=== PATIENT | female | born 1955 | race Caucasian/White ===

== ENCOUNTER 2021-05-12 02:21 | Day surgery (SDC) | payer MEDICARE, SELFPAY ==
[2021-05-05 11:15] VITALS: BMI 36.6
[2021-05-12 06:49] VITALS: BP 141/73; PULSE 80; RESP 18; TEMP 36.6; O2SAT 96; BMI 36.5
[2021-05-12] MEDS: LACTATED RINGERS 1,000 ML 150 ML IV CONT (07:00)
--- NOTE | 2021-05-12 07:00 | WPDANESEPPF ---
Anes - Initial Pre Proc Eval Procedure: Operation Date: 05/12/21 08:00 Proposed Procedures p Screening Colonoscopy - Jose Roberto Zepeda MD Date/Time: 05/12/21 07:00 Surgeon: Jose Roberto Zepeda MD Pre Op Diagnosis: neoplasm screening Patient Data Age: 65 Gender: F Height: 1.57 m Weight: 90.5 kg Last Vital Signs Temp 36.6 C 05/12/21 06:49 Pulse 80 05/12/21 06:49 Resp 18 05/12/21 06:49 BP 141/73 H 05/12/21 06:49 Pulse Ox 96 05/12/21 06:49 Allergies Allergy/AdvReac Type Severity Reaction Status Date / Time acetylcysteine Allergy Unknown Other Verified 05/12/21 06:48 ciprofloxacin Allergy Rash Verified 05/12/21 06:48 Home Medications Medication Instructions Recorded Confirmed Type aspirin [Adult Low Dose Aspirin] 81 mg PO DAILY 05/05/21 05/12/21 History atorvastatin 40 mg PO DAILY 05/05/21 05/12/21 History clopidogrel 75 mg PO DAILY 05/05/21 05/12/21 History furosemide 80 mg PO DAILY 05/05/21 05/12/21 History gabapentin 600 mg PO HS 05/05/21 05/12/21 History irbesartan 75 mg PO DAILY 05/05/21 05/12/21 History metoprolol tartrate 25 mg PO BID 05/05/21 05/12/21 History xe-fc-nosz-FA-Ca carb-vit K 1 tablet PO DAILY 05/05/21 05/12/21 History [Women's Multivitamin] Patient hx anesthesia problems: none Family hx anesthesia problems: none PMFSH Past Medical History Medical History (Updated 05/08/21 @ 12:20 by Tony Soto DO) CAD (coronary artery disease) Gout Hyperlipidemia Hypertension Surgical History Surgical History (Updated 05/08/21 @ 12:20 by Tony Soto DO) History of coronary artery stent placement x3 History of tubal ligation Hx of CABG 2005 Social History Social History Smoking packs per day: 1 Smoking cigarettes per day: 20.0 Years smoked: 54 Smoking pack-years: 54.00 Smoking status: Former smoker Tobacco type: cigarettes Living arrangements: with family Spiritual care concerns: No Anes - Eval Final PreProcedure Day of Procedure 05/12/21 07:00 Patient weight: obese Heart: regular rate and rhythm Lungs: clear to auscultation and normal air movement Airway: Mallampati scale class II Neurological: alert and oriented Last oral intake: >/= 8 hours ASA classification: III Emergent: no Anesthetic plan: proceed Anesthesia type and monitoring: general GIVS and standard monitoring Informed Consent: The patient's anesthetic plan and its attendant risks and benefits were discussed with the patient/family/POA. Questions were solicited and answers provided to the satisfaction of the patient/family/POA.
--- NOTE | 2021-05-12 07:54 | P.CONGI_ITS ---
Assessment and Plan Assessment and plan (1) Encounter for screening colonoscopy: Code(s): Z12.11 - Encounter for screening for malignant neoplasm of colon Status: Acute Assessment and Plan: Patient presents for screening colonoscopy. She appears to be at average risk for colon polyps. GI Consult Note Consult date/time: 05/12/21 07:54 HPI: Mercy Mirza is a 65 year old female Presents for screening colonoscopy. She reports her current weight appetite bowel movements are no rmal. She did have a bout of abdominal pain was treated empirically for colitis earlier in the year and has had resolution of her abdominal pain. She states her bowel movements are normal. She denies any blood in his stools. Family history is noncontributory. Review of Systems Review of Systems: All systems reviewed & are unremarkable except as noted in HPI and below PMFSH Past Medical History Medical History (Updated 05/12/21 @ 07:55 by Jose Roberto Zepeda MD) CAD (coronary artery disease) Gout Hyperlipidemia Hypertension Surgical History Surgical History (Updated 05/08/21 @ 12:20 by Tony Soto DO) History of coronary artery stent placement x3 History of tubal ligation Hx of CABG 2006 Social History Social History Smoking packs per day: 1 Smoking cigarettes per day: 20.0 Years smoked: 54 Smoking pack-years: 54.00 Smoking status: Former smoker Tobacco type: cigarettes Living arrangements: with family Spiritual care concerns: No Meds Home Medications and Allergies Home Medications Medication Instructions Recorded Confirmed Type aspirin [Adult Low Dose Aspirin] 81 mg PO DAILY 05/05/21 05/12/21 History atorvastatin 40 mg PO DAILY 05/05/21 05/12/21 History clopidogrel 75 mg PO DAILY 05/05/21 05/12/21 History furosemide 80 mg PO DAILY 05/05/21 05/12/21 History gabapentin 600 mg PO HS 05/05/21 05/12/21 History irbesartan 75 mg PO DAILY 05/05/21 05/12/21 History metoprolol tartrate 25 mg PO BID 05/05/21 05/12/21 History lu-oa-xmmt-FA-Ca carb-vit K 1 tablet PO DAILY 05/05/21 05/12/21 History [Women's Multivitamin] Allergies Allergy/AdvReac Type Severity Reaction Status Date / Time acetylcysteine Allergy Unknown Other Verified 05/12/21 06:48 ciprofloxacin Allergy Rash Verified 05/12/21 06:48 Vital Signs Vital Signs - 24 hr 05/12/21 06:49 Temperature 97.8 F Pulse Rate 80 Respiratory Rate 18 Blood Pressure 141/73 H Pulse Oximetry 96 Exam Narrative: Physical exam reveals patient be alert. Vital signs are stable. HEENT exam is unremarkable. Patient is anicteric. Lungs are clear to auscultation and percussion. Heart is without murmur or extra sounds. Abdominal exam bowel sounds are present soft nontender with no hepatosplenomegaly. 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
[2021-05-12 08:23] VITALS: BP 123/69; PULSE 77; RESP 18; O2SAT 98
--- NOTE | 2021-05-12 08:28 | SUR.OPER ---
DR WILSON NOTIFIED RECTAL POLYP NOT RETRIEVED, NO NEW ORDERS
[2021-05-12 08:33] VITALS: BP 121/74; PULSE 68; RESP 18; O2SAT 100
[2021-05-12 08:43] VITALS: BP 144/88; PULSE 67; RESP 18; O2SAT 100
== END 2021-05-12 08:55 | disposition home or self-care (01) ==
PROVIDERS: PCP Family Medicine Adolescent Medicine; Visit Provider Internal Medicine Gastroenterology
PROC: 0DJD8ZZ Inspection of Lower Intestinal Tract, Via Natural or Artificial Opening Endoscopic (ICD-10-PCS; CPT 45378; principal; 2021-05-12 08:00)
DX: Z12.11 Encounter for screening for malignant neoplasm of colon (principal); K63.5 Polyp of colon; I25.10 Atherosclerotic heart disease of native coronary artery without angina pectoris; I10 Essential (primary) hypertension; E78.5 Hyperlipidemia, unspecified; M10.9 Gout, unspecified; Z87.891 Personal history of nicotine dependence; Z95.1 Presence of aortocoronary bypass graft; Z95.5 Presence of coronary angioplasty implant and graft; Z79.02 Long term (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 antithrombotics/antiplatelets; Z79.82 Long term (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 aspirin; E66.9 Obesity, unspecified; Z68.36 Body mass index [BMI] 36.0-36.9, adult
CPT/HCPCS: 45385; 88305; J2001; J2704; J7120

== ENCOUNTER → 2021-06-01 10:51 | Outpatient (CLI) | payer MEDICARE, SELFPAY ==
--- NOTE | ~2021-06-01 | XR_ITS ---
XR hip LT min 2V DATE: 06/01/2021 11:48 INDICATION: Left hip pain, left leg pain TECHNIQUE: AP and lateral views COMPARISON: 06/25/2016 pelvis FINDINGS: No fracture or dislocation, avascular necrosis or bone destruction is detected. The pubic s ymphysis and left sacroiliac joint appear intact. IMPRESSION: No significant abnormality Reviewed, dictated and finalized at location B. IMPRESSION: No significant abnormality
--- NOTE | ~2021-06-01 | XR_ITS ---
EXAMINATION: XR lumbar spine 2-3V DATE: 06/01/2021 11:49 INDICATION: Left hip pain TECHNIQUE: Anteroposterior and lateral views of the lumbar spine, and cone-down lateral view of the l umbosacral junction were obtained. COMPARISON: None. FINDINGS: Bone alignment is normal. There is no fracture. There is advanced loss of intervertebral di sc space height at L5-S1. The vertebral body heights are maintained. There are 2 mm of retrolisthesis of L5 on S1. Calcified atherosclerosis is noted. IMPRESSION: 1. Severe lumbar spondylosis at L5-S1 without acute findings. Reviewed, dictated and finalized at location A.
== END ==
PROVIDERS: PCP Family Medicine Adolescent Medicine; Visit Provider Physician Assistant
DX: M47.896 Other spondylosis, lumbar region (principal); M25.552 Pain in left hip
CPT/HCPCS: 72100; 73502

== ENCOUNTER 2021-10-08 01:19 | Day surgery (SDC) | payer MEDICARE, SELFPAY ==
[2021-09-30 11:54] VITALS: BMI 37.5
[2021-10-08 08:35] VITALS: BP 145/71; PULSE 66; RESP 18; TEMP 36.2; O2SAT 97
[2021-10-08] MEDS: LACTATED RINGERS 1,000 ML 150 ML IV CONT (08:43)
--- NOTE | 2021-10-08 08:47 | WPDANESEPPF ---
Anes - Initial Pre Proc Eval Procedure: Operation Date: 10/08/21 09:00 Proposed Procedures p Esophagogastroduodenoscopy - Jose Roberto Zepeda MD Date/Time: 10/08/21 08:47 Surgeon: Jose Roberto Zepeda MD Pre Op Diagnosis: epigastric pain Patient Data Age: 66 Gender: F Height: 1.57 m Weight: 93.5 kg Last Vital Signs Temp 36.2 C L 10/08/21 08:35 Pulse 66 10/08/21 08:35 Resp 18 10/08/21 08:35 BP 145/71 H 10/08/21 08:35 Pulse Ox 97 10/08/21 08:35 Allergies Allergy/AdvReac Type Severity Reaction Status Date / Time acetylcysteine Allergy Severe Other Verified 10/08/21 08:23 ciprofloxacin Allergy Severe Rash Verified 10/08/21 08:23 celecoxib Allergy Intermediate rash Verified 10/08/21 08:23 lisinopril Allergy Intermediate cough Verified 10/08/21 08:23 Home Medications Medication Instructions Recorded Confirmed Type aspirin [Adult Low Dose Aspirin] 81 mg PO DAILY 05/05/21 10/08/21 History atorvastatin 40 mg PO Q48H 05/05/21 10/08/21 History clopidogrel 75 mg PO DAILY 05/05/21 10/08/21 History furosemide 80 mg PO DAILY 05/05/21 10/08/21 History gabapentin 300 mg PO HS 05/05/21 10/08/21 History irbesartan 75 mg PO DAILY 05/05/21 10/08/21 History metoprolol tartrate 25 mg PO BID 05/05/21 10/08/21 History yu-ay-ximt-FA-Ca carb-vit K 1 tablet PO DAILY 05/05/21 10/08/21 History [Women's Multivitamin] pantoprazole 40 mg tablet,delayed 40 mg PO QAM 09/23/21 10/08/21 History release B-complex with vitamin C [Super B 1 tablet PO DAILY 09/30/21 10/08/21 History Complex + C] docosahexaenoic acid-epa [Fish Oil 1 cap PO DAILY 09/30/21 10/08/21 History (with DHA-EPA)] Patient hx anesthesia problems: none Family hx anesthesia problems: none Results Review: All pre-operative results and documents have been reviewed as part of the pre-operative evaluation. PMFSH Past Medical History Medical History CAD (coronary artery disease) Encounter for screening colonoscopy 05/26 Repeat 05/31 Gout Hyperlipidemia Hypertension Obese Surgical History Surgical History History of coronary artery stent placement x3 (2006, 2011, 2014) History of tubal ligation Hx of CABG 2005 Family History Family History Father Hypertension Diabetes mellitus Mother Hypertension Social History Social History Smoking packs per day: 1 Smoking cigarettes per day: 20.0 Years smoked: 48 Smoking pack-years: 48.00 Smoking status: Former smoker Tobacco type: cigarettes Alcohol intake: current Living arrangements: with family Spiritual care concerns: No Anes - Eval Final PreProcedure Day of Procedure 10/08/21 08:47 Patient weight: obese Heart: regular rate and rhythm Lungs: clear to auscultation Airway: Mallampati scale class II Neurological: alert and oriented Last oral intake: >/= 8 hours ASA classification: III Emergent: no Anesthetic plan: proceed Anesthesia type and monitoring: general GIVS and standard monitoring Results Review: All pre-operative results and documents have been reviewed as part of the pre-operative evaluation. Informed Consent: The patient's anesthetic plan and its attendant risks and benefits were discussed with the patient/family/POA. Questions were solicited and answers provided to the satisfaction of the patient/family/POA.
--- NOTE | 2021-10-08 08:52 | WPDGICN ---
Assessment and Plan Assessment and plan (1) GERD (gastroesophageal reflux disease): Code(s): K21.9 - Gastro-esophageal reflux disease without esophagitis Status: Acute Assessment and Plan: patient has epigastric and substernal heartburn consistent with GE reflux. Poorly responsive to medication including pantoprazole 40mg p.o. daily. Plan is for EGD to assess more thoroughly. Further recommendations will be given after endoscopy. GI Consult Note Consult date/time: 10/08/21 08:52 HPI: Mercy Mirza is a 66 year old female Presents for EGD. Patient complains of acid reflux that she has had for some time. Appeared to worsen since July of 2021. She has had ongoing heartburn substernal burning pain. She has tried Tums and Mylanta without relief of symptoms. She did developed diarrhea with Mylanta. She was started on Protonix but this has helped to only a small degree. She continues to have substernal burning paying very frequently and intense. One occasion she went to the emergency room in [place]. Patient denies any bleeding. She has had no weight loss. She has no difficulty swallowing. Her family history is noncontributory. She presents today for EGD to evaluate more thoroughly. Review of Systems Review of Systems: All systems reviewed & are unremarkable except as noted in HPI and below PMFSH Past Medical History Medical History CAD (coronary artery disease) Encounter for screening colonoscopy 05/26 Repeat 05/31 Gout Hyperlipidemia Hypertension Obese Surgical History Surgical History History of coronary artery stent placement x3 (2006, 2011, 2014) History of tubal ligation Hx of CABG 2005 Family History Family History Father Hypertension Diabetes mellitus Mother Hypertension Social History Social History Smoking packs per day: 1 Smoking cigarettes per day: 20.0 Years smoked: 48 Smoking pack-years: 48.00 Smoking status: Former smoker Tobacco type: cigarettes Alcohol intake: current Living arrangements: with family Spiritual care concerns: No Meds Home Medications and Allergies Home Medications Medication Instructions Recorded Confirmed Type aspirin [Adult Low Dose Aspirin] 81 mg PO DAILY 05/05/21 10/08/21 History atorvastatin 40 mg PO Q48H 05/05/21 10/08/21 History clopidogrel 75 mg PO DAILY 05/05/21 10/08/21 History furosemide 80 mg PO DAILY 05/05/21 10/08/21 History gabapentin 300 mg PO HS 05/05/21 10/08/21 History irbesartan 75 mg PO DAILY 05/05/21 10/08/21 History metoprolol tartrate 25 mg PO BID 05/05/21 10/08/21 History bt-zf-xgni-FA-Ca carb-vit K 1 tablet PO DAILY 05/05/21 10/08/21 History [Women's Multivitamin] pantoprazole 40 mg tablet,delayed 40 mg PO QAM 09/23/21 10/08/21 History release B-complex with vitamin C [Super B 1 tablet PO DAILY 09/30/21 10/08/21 History Complex + C] docosahexaenoic acid-epa [Fish Oil 1 cap PO DAILY 09/30/21 10/08/21 History (with DHA-EPA)] Allergies Allergy/AdvReac Type Severity Reaction Status Date / Time acetylcysteine Allergy Severe Other Verified 10/08/21 08:23 ciprofloxacin Allergy Severe Rash Verified 10/08/21 08:23 celecoxib Allergy Intermediate rash Verified 10/08/21 08:23 lisinopril Allergy Intermediate cough Verified 10/08/21 08:23 Vital Signs Vital Signs - 24 hr 10/08/21 08:35 Temperature 97.1 F L Pulse Rate 66 Respiratory Rate 18 Blood Pressure 145/71 H Pulse Oximetry 97 Exam Narrative: Physical exam reveals patient to be alert. Vital signs stable. HEENT exam is unremarkable. Patient is anicteric. Lungs are clear to auscultation and percussion. Heart is without murmur or extra sounds. Abdominal exam bowel sounds are present soft nontend
[2021-10-08 09:30] VITALS: BP 149/83; PULSE 80; RESP 18; O2SAT 97
[2021-10-08 09:40] VITALS: BP 140/89; PULSE 69; RESP 14; O2SAT 97
[2021-10-08 09:50] VITALS: BP 145/90; PULSE 66; RESP 17; O2SAT 100
== END 2021-10-08 10:12 | disposition home or self-care (01) ==
PROVIDERS: PCP Family Medicine Adolescent Medicine; Visit Provider Internal Medicine Gastroenterology
PROC: 0DJ08ZZ Inspection of Upper Intestinal Tract, Via Natural or Artificial Opening Endoscopic (ICD-10-PCS; CPT 43235; principal; 2021-10-08 09:00)
DX: K21.9 Gastro-esophageal reflux disease without esophagitis (principal); R14.2 Eructation; R12 Heartburn; I25.10 Atherosclerotic heart disease of native coronary artery without angina pectoris; E78.5 Hyperlipidemia, unspecified; I10 Essential (primary) hypertension; M10.9 Gout, unspecified; E66.9 Obesity, unspecified; Z68.37 Body mass index [BMI] 37.0-37.9, adult; Z95.1 Presence of aortocoronary bypass graft; Z95.5 Presence of coronary angioplasty implant and graft; Z87.891 Personal history of nicotine dependence; Z79.82 Long term (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 aspirin; Z79.02 Long term (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 antithrombotics/antiplatelets
CPT/HCPCS: 43235; 87081; J2001; J2704; J7120

== ENCOUNTER → 2022-05-14 08:38 | Outpatient (CLI) | payer MEDICARE, SELFPAY ==
--- NOTE | ~2022-05-14 | MR_ITS ---
EXAMINATION: MR knee LT wo con DATE: 05/14/2022 09:13 INDICATION: Left knee pain TECHNIQUE: Magnetic resonance imaging (MRI) of the left knee was performed without intravenous contra st. Sequences included coronal PD-weighted FSE, coronal PD-weighted FS FSE, sagittal T2-weighted FSE , sagittal PD-weighted FS FSE and axial PD weighted fat saturated FSE. COMPARISON: Left knee radiographs dated 04/23/2022 FINDINGS: Medial compartment: Complex tear at the posterior horn of the medial meniscus. 1.6 x 0.8 x 0.7 cm paravertebral cyst jareth g the peripheral margin of the lateral side of the posterior horn of the medial meniscus. There is mi ld cystic change and surrounding marrow edema at the posterolateral aspect of the medial tibial plate au near the posterior root of the medial meniscus. Partial-thickness cartilage loss with mild chondra l surface regularity along the medial tibial plateau and anterior to central weightbearing medial fem oral condyle. Lateral compartment: Lateral meniscus is normal. Partial-thickness chondral fissuring at the central to posterior aspect o f the lateral tibial plateau. Patellofemoral compartment: Partial-thickness chondral ulceration with deep fissuring and underlying tiny cystlike change at the patellar apical ridge. Additional deep chondral fissuring without degenerative subchondral changes at both the medial and lateral patellar facets. Additional chondral ulceration and deep fissuring with mild underlying cortical irregularity at the inferior aspect of the medial trochlea. Ligaments and tendons: Anterior and posterior cruciate ligaments are normal. The medial collateral ligament and fibular john ateral ligament complex are normal. The extensor mechanism is normal. The visualized medial and later al hamstring tendons as well as the iliotibial band are normal. Fluid: Physiologic amount of fluid in the joint space. No loose osteochondral bodies identified. Moderate-si zed Rapp's cyst measuring 5.7 cm in length and 3.0 x 0.5 cm maximal transaxial dimensions. Prepatell ar edema without discrete bursal fluid collection. Osseous/other: Normal marrow signal siphon the previous noted degenerative subarticular cystlike and edema-like stiles ges. No fracture or pathologic marrow replacing process. IMPRESSION: 1. Complex tear at the posterior horn of the medial meniscus. 2. 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 3. Moderate-sized Rapp's cyst. Reviewed, dictated and finalized at location A. IMPRESSION: 1. Complex tear at the posterior horn of the medial meniscus. 2. Mild tricompartmental osteoarthritis with moderate grade chondromalacia in t he medial and to lesser extent lateral compartments and moderate and high-grade chondral malacia in the patellofemoral compartment. 3. Moderate-sized Rapp's cyst.
== END ==
PROVIDERS: PCP Family Medicine Adolescent Medicine; Visit Provider Orthopaedic Surgery
DX: M17.12 Unilateral primary osteoarthritis, left knee (principal); S83.232A Complex tear of medial meniscus, current injury, left knee, initial encounter; X58.XXXA Exposure to other specified factors, initial encounter
CPT/HCPCS: 73721

== ENCOUNTER 2022-05-24 13:55 | Outpatient (RCR) | payer MEDICARE, SELFPAY ==
--- NOTE | 2022-05-24 15:04 | PTOPEVAL1 ---
Assessment and note entered by Rakan Lopez, PT, DPT Evaluation Information Assessment Status Evaluation Diagnosis L knee pain Onset 1 year Subjective Information Pt states she has been having knee pain for over a year. She states they finally did an MRI and saw she has a torn meniscus. Her follow up is 06/02 and she will discuss her plan then. She states originally she states with hip and groin pain, this traveled further down, and is now in the knee . Pt lives in a split level home and reports a fear of falling. She reports minimal pain when she is active and moving all day, if she is more sedentary, she has higher pain. Reported Pain Level Pain Score 3: Self Report Assessment PT Clinical Summary Mercy is a 66 y/o female who presents to therapy today for her initial evaluation with a diagnosis of L knee pain. Today she demonstrates no deviations during gait but reports a decreased gait speed from her baseline. She demonstrates near equal knee flexion ROM. Is most limited in her L knee strength when compared to her R. Skilled physical therapy services are indicated to address the deficits noted above, to improve stability, to manage pain, and to return to baseline function. Plan of Care Interventions Gait Training,Manual Therapy,Neuro Re-education, Patient/Caregiver Educati,Therapeutic Activities, Therapeutic Exercise PT Services Indicated Yes Treatment Frequency and 1x/wk for 4 wks or until goals are met Duration These treatments will address the objective and functional deficits as defined above. The patient will be advanced safely and appropriately in order for the patient to progress towards his/her prior level of function. Additional exercises will be introduced and as well as a comprehensive home exercise program upon discharge, if needed, ?to ensure carryover of functional gains achieved in the clinic. This treatment plan has been reviewed and agreement upon by the patient.
--- NOTE | 2022-06-02 16:28 | PTOPDC ---
Assessment and note entered by Rakan Lopez, PT, DPT Evaluation Information Assessment Status Discharge - Pt Not Present Diagnosis L knee pain Onset 1 year Subjective Information Pt called today and cancelled her remaining appointments due to scheduling surgery. Assessment PT Clinical Summary Mercy completed her physical therapy initial evaluation on 05/24/22 during which she was instructed in a home exercise program. She will be discharged from skilled therapy services at this time d/t her upcoming surgery. She will need a new order if she is to return after surgery.
== END 2022-06-04 14:13 | disposition home or self-care (01) ==
LOC: ANHGOSHPT 13:55
PROVIDERS: PCP Family Medicine Adolescent Medicine; Visit Provider Orthopaedic Surgery
DX: M25.562 Pain in left knee (principal)
CPT/HCPCS: 97110; 97161

== ENCOUNTER → 2022-05-25 11:55 | Outpatient (CLI) | payer MEDICARE, SELFPAY ==
--- NOTE | ~2022-05-25 | MM_ITS ---
EXAMINATION: MM screening [facility] BI w cat HISTORY: Screening mammogram TECHNIQUE: Craniocaudal and mediolateral oblique 3-D tomosynthesis images were obtained and synthetic 2-D images were generated. CAD analysis was submitted and interpreted. COMPARISON: 08/24/2017, 08/08/2017, 07/25/2012 BREAST PARENCHYMAL COMPOSITION: There are scattered areas of fibroglandular density. FINDINGS: There has been interval biopsy of right breast calcifications. There is no suspicious mass, calcification, or architectural distortion to suggest malignancy in either breast. There has been no suspicious interval change. IMPRESSION: 1. No mammographic evidence of malignancy. 2. Recommend routine screening mammography in one year. BI-RADS Category 1: Negative Reviewed, dictated and finalized at location A.
== END ==
PROVIDERS: PCP Family Medicine Adolescent Medicine; Visit Provider Family Medicine Adolescent Medicine
DX: Z12.31 Encounter for screening mammogram for malignant neoplasm of breast (principal)
CPT/HCPCS: 77063; 77067

== ENCOUNTER 2022-07-13 11:24 | Outpatient (CLI) | payer MEDICARE, SELFPAY ==
[2022-07-13 11:53] LABS: Anion Gap 12 mmol/L (8-16); Blood Urea Nitrogen 14 mg/dL (7-17); Calcium 9.3 mg/dL (8.4-10.2); Carbon Dioxide 29 mmol/L (22-30); Chloride 102 mmol/L (98-107); Estimated Glomerular Filt Rate > 60; Glucose 118 mg/dL (65-110); Potassium 3.6 mmol/L (3.4-5.0); Sodium 143 mmol/L (137-145)
== END 2022-07-13 11:25 | disposition home or self-care (01) ==
LOC: ANHSURGERY 11:28
PROVIDERS: Anesthesiology; PCP Family Medicine Adolescent Medicine; Visit Provider Orthopaedic Surgery
DX: Z79.899 Other long term (current) drug therapy (principal); Z01.818 Encounter for other preprocedural examination
CPT/HCPCS: 36415; 80048

== ENCOUNTER 2022-07-16 00:11 | Day surgery (SDC) | payer MEDICARE, SELFPAY ==
[2022-07-08 14:32] VITALS: BMI 35.9
--- NOTE | 2022-07-08 15:02 | PC.NURSE ---
PRE-OP INSTRUCTIONS, PLEASE READ CAREFULLY Report to the Outpatient Waiting Room, entrance under the green pavilion located off [facility], at time _1000_ on date _07/16/22_. Planned Procedure Time: _1200_. Time changes happen often and if your time is changed the preop area will call you the afternoon before. - You and your visitor will be asked to self-screen and do not enter if you have any COVID symptoms. - We encourage only one visitor and NO visitors under age 16 are allowed at this time. Your visitor will receive communication by the phone number that is given day of service. - The patient visitor is requested to social distance or may leave the building when not with patient due to restrictions. - A mask is required within the hospital. Patients may have clear liquids (water, carbonated beverages, clear teas, apple juice) until 3 hours prior to surgery (0900 AM) with a maximum of 20 ounces. - No food from midnight until time of surgery Take the following medications with a SIP of water the morning of surgery: _METOPROLOL_ Medications to discontinue - _PT STATES PER DR. NGUYEN TO STOP ASPIRIN, PLAVIX, RESVERATROL AND VITAMINS/SUPPLEMENTS 4 DAYS PRIOR TO SURGERY, Date to take last dose 07/11/22_ Please no make-up, nail welsh, hairspray, perfume, deodorant, or body powder the day of surgery. No jewelry (including any body piercings) or valuables the day of surgery, leave them at home. Please take a shower or bath the night before, or the morning of, surgery with an antibacterial soap. Wear comfortable, loose fitting clothing. - Jewelry must be removed prior to entering the operating room. Rings and piercings that are not removed may be cut off. - The hospital will not accept responsibility for valuables. - Please leave all valuables, including medications, at home the day of surgery. If you are going home after surgery, a licensed cement truck driver must drive you home. - NO public transportation without another adult. - We recommend that an adult stay with you for 24 hours following discharge. - We also recommend that you do not drive, make important decision, drink alcoholic beverages, or take any drugs that were not prescribed by your health care provider for at least 24 hours after your discharge time. Follow any additional instructions given to you from your surgeon. If you or anyone in your household have experienced Covid symptoms in the past week, please notify your surgeon or the nurse liaison at the phone number below for possible testing. Telephone instructions given to ____PT and asked if any additional questions and then verbalized understanding. Patient advised to call surgeon office or pre surgery nurse liaison [phone] if any additional questions.
[2022-07-16] VITALS (11 sets, daily range): BP systolic 114–165; BP diastolic 66–81; PULSE 52–97; RESP 10–16; TEMP 37.1–37.3; O2SAT 92–99
[2022-07-16] MEDS: LACTATED RINGERS 1,000 ML 30 ML IV CONT ×2 (10:30→12:51)
[2022-07-16] MEDS: ACETAMINOPHEN 500 MG TABLET 1000 MG PO (10:45)
[2022-07-16] MEDS: KETOROLAC 15 MG/ML VIAL (*BKC) IV PUSH (10:45)
--- NOTE | 2022-07-16 11:28 | WPDANESEPPF ---
Anes - Initial Pre Proc Eval Procedure: Operation Date: 07/16/22 12:00 Proposed Procedures p Left Knee Arthroscopic Partial Medial Meniscectomy - Huang Vickers MD Date/Time: 07/16/22 11:28 Surgeon: Huang Vickers MD Pre Op Diagnosis: Medial Meniscus Tear Lt Knee Patient Data Age: 66 Gender: F Height: 1.57 m Weight: 90 kg Last Vital Signs Temp 37.3 C 07/16/22 10:45 Pulse 65 07/16/22 10:45 Resp 16 07/16/22 10:45 BP 131/70 07/16/22 10:45 Pulse Ox 97 07/16/22 10:45 O2 Del Method Room Air 07/16/22 10:45 Allergies Allergy/AdvReac Type Severity Reaction Status Date / Time acetylcysteine Allergy Severe Other Verified 06/30/22 13:57 ciprofloxacin Allergy Severe Rash Verified 06/30/22 13:57 celecoxib Allergy Intermediate rash Verified 06/30/22 13:57 lisinopril Allergy Intermediate cough Verified 06/30/22 13:57 Home Medications Medication Instructions Recorded Confirmed Type aspirin 81 mg tablet 81 mg PO DAILY 05/05/21 07/16/22 History clopidogrel 75 mg tablet 75 mg PO DAILY 05/05/21 07/16/22 History furosemide 80 mg tablet 80 mg PO DAILY 05/05/21 07/08/22 History irbesartan 75 mg tablet 75 mg PO DAILY 05/05/21 07/08/22 History metoprolol tartrate 25 mg tablet 25 mg PO BID 05/05/21 07/16/22 History rsrrbxjn-vsc-rpku-FA-Ca carb-vit K 1 tablet PO DAILY 05/05/21 07/08/22 History 18 mg iron-400 mcg-500 mg tablet pantoprazole 40 mg tablet,delayed 40 mg PO QAM 09/23/21 07/08/22 History release B-complex with vitamin C 1 tablet PO DAILY 09/30/21 07/08/22 History gabapentin 300 mg capsule See Rx Instructions PO HS #180 caps 01/12/22 07/08/22 Rx atorvastatin 20 mg tablet 20 mg PO DAILY 03/17/22 07/08/22 History ezetimibe 10 mg tablet 10 mg PO DAILY 03/17/22 07/08/22 History resveratrol 100 mg capsule 500 mg PO QAM 05/24/22 07/08/22 History Fish Oil 1 cap QAM 07/08/22 07/08/22 History coenzyme Q10 100 mg capsule 100 mg PO DAILY 07/08/22 07/08/22 History (CoQ-10) fluocinolone acetonide oil 0.01 % 4 drp LEFT EAR DAILY PRN Itching 07/08/22 07/08/22 History ear drops (DermOtic Oil) Patient hx anesthesia problems: none Family hx anesthesia problems: none Results Review: All pre-operative results and documents have been reviewed as part of the pre-operative evaluation. [facility] Past Medical History Medical History CAD (coronary artery disease) Encounter for screening colonoscopy 05/26 Repeat 05/31 Essential (primary) hypertension GERD (gastroesophageal reflux disease) Gout History of kidney stones Left hip pain Left knee pain Mixed hyperlipidemia Surgical History Surgical History History of coronary artery stent placement x3 (2006, 2011, 2014) History of endoscopy History of tubal ligation Hx of CABG 2005 Hx of carpal tunnel repair Hx of plastic surgery facial reconstruction Family History Family History Father Hypertension Diabetes mellitus Mother Hypertension Unknown Heart disease Social History Social History Smoking packs per day: 1 Smoking cigarettes per day: 20.0 Years smoked: 48 Smoking pack-years: 48.00 Smoking status: Former smoker Tobacco type: cigarettes Second hand tobacco smoke exposure: No Alcohol intake: current Substance use: never Substance use type: does not use Lack of Transportation: No Lack of Food: Never True Current Housing: I Have Housing Concerned About Future Housing: No Difficulty Paying Gas/Electric Bills: No Difficulty Paying for Meds: No Currently Unemployed: No Education: Associate Degree Difficulty w/ Childcare or Family Care: No Gender identity (if verbalized by the patient): Female Sexual Orientation (if Verbalized by the Patient): Straight or Het
--- NOTE | 2022-07-16 12:02 | WPDANESEPPF ---
Anes - Initial Pre Proc Eval Procedure: Operation Date: 07/16/22 12:00 Proposed Procedures p Left Knee Arthroscopic Partial Medial Meniscectomy - Huang Vickers MD Date/Time: 07/16/22 12:02 Surgeon: Huang Vickers MD Pre Op Diagnosis: Medial Meniscus Tear Lt Knee Patient Data Age: 66 Gender: F Height: 1.57 m Weight: 90 kg Last Vital Signs Temp 99.2 F 07/16/22 10:45 Pulse 65 07/16/22 10:45 Resp 16 07/16/22 10:45 BP 131/70 07/16/22 10:45 Pulse Ox 97 07/16/22 10:45 O2 Del Method Room Air 07/16/22 10:45 Allergies Allergy/AdvReac Type Severity Reaction Status Date / Time acetylcysteine Allergy Severe Other Verified 06/30/22 13:57 ciprofloxacin Allergy Severe Rash Verified 06/30/22 13:57 celecoxib Allergy Intermediate rash Verified 06/30/22 13:57 lisinopril Allergy Intermediate cough Verified 06/30/22 13:57 Home Medications Medication Instructions Recorded Confirmed Type aspirin 81 mg tablet 81 mg PO DAILY 05/05/21 07/16/22 History clopidogrel 75 mg tablet 75 mg PO DAILY 05/05/21 07/16/22 History furosemide 80 mg tablet 80 mg PO DAILY 05/05/21 07/08/22 History irbesartan 75 mg tablet 75 mg PO DAILY 05/05/21 07/08/22 History metoprolol tartrate 25 mg tablet 25 mg PO BID 05/05/21 07/16/22 History niztescy-dbt-knox-FA-Ca carb-vit K 1 tablet PO DAILY 05/05/21 07/08/22 History 18 mg iron-400 mcg-500 mg tablet pantoprazole 40 mg tablet,delayed 40 mg PO QAM 09/23/21 07/08/22 History release B-complex with vitamin C 1 tablet PO DAILY 09/30/21 07/08/22 History gabapentin 300 mg capsule See Rx Instructions PO HS #180 caps 01/12/22 07/08/22 Rx atorvastatin 20 mg tablet 20 mg PO DAILY 03/17/22 07/08/22 History ezetimibe 10 mg tablet 10 mg PO DAILY 03/17/22 07/08/22 History resveratrol 100 mg capsule 500 mg PO QAM 05/24/22 07/08/22 History Fish Oil 1 cap QAM 07/08/22 07/08/22 History coenzyme Q10 100 mg capsule 100 mg PO DAILY 07/08/22 07/08/22 History (CoQ-10) fluocinolone acetonide oil 0.01 % 4 drp LEFT EAR DAILY PRN Itching 07/08/22 07/08/22 History ear drops (DermOtic Oil) Patient hx anesthesia problems: none Family hx anesthesia problems: none Results Review: All pre-operative results and documents have been reviewed as part of the pre-operative evaluation. [facility] Past Medical History Medical History CAD (coronary artery disease) Encounter for screening colonoscopy 05/26 Repeat 05/31 Essential (primary) hypertension GERD (gastroesophageal reflux disease) Gout History of kidney stones Left hip pain Left knee pain Mixed hyperlipidemia Surgical History Surgical History History of coronary artery stent placement x3 (2006, 2011, 2014) History of endoscopy History of tubal ligation Hx of CABG 2005 Hx of carpal tunnel repair Hx of plastic surgery facial reconstruction Family History Family History Father Hypertension Diabetes mellitus Mother Hypertension Unknown Heart disease Social History Social History Smoking packs per day: 1 Smoking cigarettes per day: 20.0 Years smoked: 48 Smoking pack-years: 48.00 Smoking status: Former smoker Tobacco type: cigarettes Second hand tobacco smoke exposure: No Alcohol intake: current Substance use: never Substance use type: does not use Lack of Transportation: No Lack of Food: Never True Current Housing: I Have Housing Concerned About Future Housing: No Difficulty Paying Gas/Electric Bills: No Difficulty Paying for Meds: No Currently Unemployed: No Education: Associate Degree Difficulty w/ Childcare or Family Care: No Gender identity (if verbalized by the patient): Female Sexual Orientation (if Verbalized by the Patient): Straight or Het
[2022-07-16] MEDS: ceFAZolin 2 GM/D5W 50 ML 2 GM/50 ML BAG IVPB (12:09)
[2022-07-16] MEDS: BUPIVACAINE/EPINEPHRINE 0.25% 50 ML VIAL 20 ML INFILTRATE (12:38)
[2022-07-16] MEDS: fentaNYL CITRATE INJ (*CRX) 100 MCG/2 ML VIAL 25 MCG IV PUSH ×4 (13:40→13:55)
--- NOTE | 2022-07-16 14:43 | W.PM.PROC2 ---
Procedure Note - Detailed Date of Procedure 07/16/22 Pre-op Diagnosis Medial Meniscus Tear Lt Knee Post-op Diagnosis Same Procedure Performed Arthroscopic partial medial meniscectomy, left knee. Surgeon Huang Vickers MD Film Replacement Orderer Franci Collier PA-C. Anesthesia General Findings Complex, unstable posterior medial meniscus tear. 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 Lateral femur chondromalacia grade 0, lateral tibia grade 0. Patellar grade 2, trochlea grade 1. Description of Procedure The patient was identified and the surgical site confirmed and signed in the preoperative holding area. Antibiotics were started per protocol. She was brought to the operative room and transferred to the OR table. A general anesthetic was administered. Supine position with the operative lower extremity position in the leg landis after placement of a well padded tourniquet. The leg support was lowered and the contralateral limb was supported with a soft bolster. The knee was prepped and draped in the usual sterile fashion. A time-out was performed. The portal sites were marked and infiltrated with 0.5% Marcaine 20 mL. The limb was exsanguinated and the tourniquet inflated to 300 mL Hg. Standard inferolateral and inferomedial portals were established. Inflow was obtained with the saline pump. The camera was introduced. Diagnostic inspection of the joint was accomplished. The meniscus was debrided with the arthroscopic shaver and punches until stable. The arthroscopic instruments were removed. The tourniquet released and wounds closed with subcutaneous 4-0 Monocryl absorbable suture. Steri strips and a sterile dressing were applied. A light elastic wrap was placed. The patient was extubated and brought to the recovery room in stable condition. Estimated Blood Loss -5.0 Drains No Pathology None sent Complications No immediate complications Condition Stable Disposition PACU [facility] Billing Surgery - Charge Forward: Surgery Billing
[2022-07-16] MEDS: oxyCODONE HCL (*CRX) 5 MG TAB IR PO (14:54)
== END 2022-07-16 15:31 | disposition home or self-care (01) ==
PROVIDERS: PCP Family Medicine Adolescent Medicine; Visit Provider Orthopaedic Surgery
PROC: (CPT 29870; principal; 2022-07-16 12:00)
DX: S83.232A Complex tear of medial meniscus, current injury, left knee, initial encounter (principal); X50.0XXA Overexertion from strenuous movement or load, initial encounter; M94.262 Chondromalacia, left knee; I25.10 Atherosclerotic heart disease of native coronary artery without angina pectoris; E78.2 Mixed hyperlipidemia; I10 Essential (primary) hypertension; K21.9 Gastro-esophageal reflux disease without esophagitis; Z95.5 Presence of coronary angioplasty implant and graft; Z95.1 Presence of aortocoronary bypass graft; Z87.891 Personal history of nicotine dependence; Z79.02 Long term (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 antithrombotics/antiplatelets; Z79.82 Long term (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 aspirin
CPT/HCPCS: 29881; 36415; 80048; A9270; J0690; J1100; J1885; J2250; J2405; J2704; J3010; J7120

== ENCOUNTER 2022-07-28 14:07 | Emergency (ER) | payer MEDICARE, SELFPAY ==
[2022-07-28 14:15] VITALS: BP 163/103; PULSE 71; RESP 23; TEMP 35.9; O2SAT 100
--- NOTE | 2022-07-28 14:30 | PC.NURSE ---
1420- pt instructed on giving a urine specimen, and is in bathroom at present.
--- NOTE | 2022-07-28 14:37 | ED.ABDPAIN ---
HPI - Abdominal Pain General Chief Complaint: Abdominal Pain Stated Complaint: R SIDED ABD PAIN Time Seen by Provider: 07/28/22 14:21 Source: patient Mode of arrival: ambulatory Limitations: no limitations History of Present Illness HPI narrative: Patient presents today complaining of right flank pain radiating to the right abdomen. Still pain started this morning, but has advanced to severe pain approximately 1 hour ago. It is accompanied by mild nausea. She does have history of kidney stones and states this does feel similar. She currently rates her pain 06/14 and has taken no ldel-bbm-qkgitbx medication for symptoms prior to arrival. She does take Plavix. Related Data Home Medications Medication Instructions Recorded Confirmed aspirin 81 mg tablet 81 mg PO DAILY 05/05/21 07/16/22 clopidogrel 75 mg tablet 75 mg PO DAILY 05/05/21 07/16/22 furosemide 80 mg tablet 80 mg PO DAILY 05/05/21 07/08/22 irbesartan 75 mg tablet 75 mg PO DAILY 05/05/21 07/08/22 metoprolol tartrate 25 mg tablet 25 mg PO BID 05/05/21 07/16/22 qjttyyqu-dnr-kiua-FA-Ca carb-vit K 1 tablet PO DAILY 05/05/21 07/08/22 18 mg iron-400 mcg-500 mg tablet pantoprazole 40 mg tablet,delayed 40 mg PO QAM 09/23/21 07/08/22 release B-complex with vitamin C 1 tablet PO DAILY 09/30/21 07/08/22 atorvastatin 20 mg tablet 20 mg PO DAILY 03/17/22 07/08/22 ezetimibe 10 mg tablet 10 mg PO DAILY 03/17/22 07/08/22 resveratrol 100 mg capsule 500 mg PO QAM 05/24/22 07/08/22 Fish Oil 1 cap QAM 07/08/22 07/08/22 coenzyme Q10 100 mg capsule 100 mg PO DAILY 07/08/22 07/08/22 (CoQ-10) fluocinolone acetonide oil 0.01 % 4 drp LEFT EAR DAILY PRN Itching 07/08/22 07/08/22 ear drops (DermOtic Oil) Allergies Allergy/AdvReac Type Severity Reaction Status Date / Time acetylcysteine Allergy Severe Other Verified 06/30/22 13:57 ciprofloxacin Allergy Severe Rash Verified 06/30/22 13:57 celecoxib Allergy Intermediate rash Verified 06/30/22 13:57 lisinopril Allergy Intermediate cough Verified 06/30/22 13:57 Review of Systems Review of Systems: CONSTITUTIONAL: Denies body aches, fever, chills, or sweats. EYES: Denies visual changes, redness, or discharge. ENT: Denies rhinorrhea, congestion, sore throat, or otalgia. CARDIOVASCULAR: Denies chest pain, palpitations, or edema. RESPIRATORY: Denies cough or dyspnea. GASTROINTESTINAL: Denies vomiting, or diarrhea.+ right flank pain, nausea GENITOURINARY: Denies dysuria or hematuria. SKIN: Denies rash, itching, or wounds. MUSCULOSKELETAL: Denies back pain, joint pain, or myalgia. NEUROLOGIC: Denies headache, numbness, tingling, or weakness. PSYCH: Denies depression or anxiety. [facility] Past Medical History Medical History CAD (coronary artery disease) Encounter for screening colonoscopy 05/26 Repeat 05/31 Essential (primary) hypertension GERD (gastroesophageal reflux disease) Gout History of kidney stones Left hip pain Left knee pain Mixed hyperlipidemia Surgical History Surgical History History of coronary artery stent placement x3 (2006, 2011, 2014) History of endoscopy History of tubal ligation Hx of CABG 2006 Hx of carpal tunnel repair Hx of plastic surgery facial reconstruction Family History Family History Father Hypertension Diabetes mellitus Mother Hypertension Unknown Heart disease Social History Social History Smoking packs per day: 1 Smoking cigarettes per day: 20.0 Years smoked: 48 Smoking pack-years: 48.00 Smoking status: Former smoker Tobacco type: cigarettes Second hand tobacco smoke exposure: No Alcohol intake: current Substance use: never Substance use type: does not use Lack of Transportation: No Lack of Food: Never True Curren
--- NOTE | 2022-07-28 15:09 | PC.NURSE ---
1432-- pt came out of exam room while provider was giving report to the er at [facility], pt waves and states that she is leaving to go to the er, and to just let them know that she is on the way, explained to pt we need signature, and she just kept on a walking. pt left exam room with spouse in stable, ambulatory condition.
== END 2022-07-28 14:32 | disposition short-term general hospital (02) ==
PROVIDERS: Emergency Provider Nurse Practitioner; PCP Family Medicine Adolescent Medicine
DX: R10.9 Unspecified abdominal pain (principal); Z87.891 Personal history of nicotine dependence; I25.10 Atherosclerotic heart disease of native coronary artery without angina pectoris; Z95.5 Presence of coronary angioplasty implant and graft; I10 Essential (primary) hypertension; K21.9 Gastro-esophageal reflux disease without esophagitis; M10.9 Gout, unspecified; E78.2 Mixed hyperlipidemia; Z79.82 Long term (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 aspirin
CPT/HCPCS: 81003; 99212; G0463

== ENCOUNTER 2022-07-28 14:51 | Emergency (ER) | payer MEDICARE, SELFPAY ==
[2022-07-28] VITALS (14 sets, daily range): BP systolic 120–162; BP diastolic 63–95; PULSE 66–97; RESP 14–19; TEMP 36.8–36.9; O2SAT 94–100
--- NOTE | ~2022-07-28 | CT_ITS ---
EXAMINATION: CT abdomen pelvis w con DATE: 07/28/2022 17:15 INDICATION: Right lower quadrant pain, right flank pain TECHNIQUE: Computed tomography (CT) of the abdomen and pelvis was performed with 100 CC Omnipaque 350 intravenous contrast. Automated exposure control and iterative reconstruction technique were employe d. Exam dose: 925.59 mGy-cm total exam DLP. COMPARISON: None. FINDINGS: Status post sternotomy. Minimal infiltrate or atelectasis at the lung bases, greatest involvement at the left lower lobe. Heart size is normal. There are coronary artery calcifications. No pericardial effusion. Diffuse hepatic steatosis. No hepatic, splenic, pancreatic space-occupying mass lesions. The gallblad tim appears unremarkable. No bile duct or pancreatic duct dilatation. There is mild nodularity of the left adrenal gland suggesting possible small adenomas areas of hypert rophy. The right adrenal gland is normal. No renal mass lesions are noted. 2.5 mm nonobstructing right renal calculus. There is unilateral right perinephric fluid and moderate right hydroureteronephrosis and some soft ti ssue thickening of the right ureterovesical junction. There is an approximately 3.5 mm calculus in th e dependent aspect of the urinary bladder, probably recently passed. No other urinary tract calculus is noted. No left hydroureteronephrosis. The urinary bladder wall is mildly diffusely thickened. The uterus and adnexal areas are unremarkable. There is atherosclerotic calcification but normal caliber of the abdominal aorta, iliac arteries. No intraperitoneal or retroperitoneal or pelvic mass lesion or adenopathy or ascites. Normal appendix. Diverticulosis of the colon; no CT evidence of diverticulitis. No bowel obstruction or intraperitoneal free air. Bilateral osteitis condensans ilii. Severe degenerative disease at L5-S1. Diffuse idiopathic skeletal hyperostosis of the thoracic spine. IMPRESSION: 3.5 mm urinary bladder calculus, probably recently passed from the right ureter, right m oderate hydroureteronephrosis and unilateral right perinephric fluid 2.5 mm nonobstructing right renal calculus Hepatic steatosis Normal appendix Mild colonic diverticulosis; no CT evidence of diverticulitis Reviewed, dictated and finalized at [facility] Reviewed, dictated and finalized at [facility] M[facility]ER IMPRESSION: 3.5 mm urinary bladder calculus, probably recently passed from the right ureter, right moderate hydroureteronephrosis and unilateral right perine phric fluid 2.5 mm nonobstructing right renal calculus Hepatic steatosis Normal appendix Mild colonic diverticulosis; no CT evidence of diverticulitis
[2022-07-28 15:34] LABS: Appearance Urine Clear (Clear); Bilirubin Urine Negative (Negative); Blood Urine Trace-intact (Negative); Color Urine Yellow (Yellow); Glucose Urine UA Negative (Negative); Ketones Urine Negative (Negative); Leukocyte Esterase Ur Negative LEU/UL (Negative); Nitrate Urine Negative (Negative); Protein Urine Negative (Negative); Specific Grav Ur 1.015 (1.001-1.035); Urobilinogen Urine 0.2 mg/dL (<2.0)
[2022-07-28 15:47] LABS: Basophils Absolute Auto 0.1 K/mm3 (0.0-0.1); Basophils Percent Auto 0.4 % (0.2-1.2); Eosinophils Absolute Auto 0.2 K/mm3 (0-0.3); Eosinophils Percent Auto 1.1 % (0-4.4); Hematocrit 39.4 % (37.0-47.0); Hemoglobin 13.8 g/dL (12.0-15.0); Immature Granulocyte Absolute 0.09 K/mm3 (0.00-0.031); Immature Granulocyte Percent A 0.5 % (0-0.5); Lymphocytes Absolute Auto 3.83 K/mm3 (0.9-3.2); Lymphocytes Percent Auto 22.8 % (18.3-44.2); Mean Corpuscular Hemoglobin 30.8 pg (26-34); Mean Corpuscular Volume 87.9 fl (80-100); Mean Platelet Volume 9.1 fl (7.4-10.4); Monocytes Absolute Auto 1.2 K/mm3 (0.1-0.6); Monocytes Percent Auto 7.1 % (2.6-8.5); Neutrophils Absolute Auto 11.4 K/mm3 (1.3-6.7); Neutrophils Percent Auto 68.1 % (45.5-73.1); Platelet Count Result 278 k/mm3 (150-375); Red Blood Count 4.48 M/mm3 (4.2-5.4); Red Cell Distribution Width 12.9 % (11.5-14.5); White Blood Count 16.8 K/mm3 (4.5-10.0)
[2022-07-28 15:54] LABS: Bacteria Urine Trace /hpf; Mucus Urine Rare /lpf; RBC Urine 0-2 /hpf (0-2); Squamous Epithelial Cell Urine Rare /hpf (Few); WBC Urine 0-3 /hpf
[2022-07-28 15:57] LABS: Alanine Aminotransferase 30 U/L (6-35); Albumin Level 4.8 g/dL (3.5-5.1); Alkaline Phosphatase 124 U/L (38-126); Anion Gap 15 mmol/L (8-16); Aspartate Amino Transferase 37 U/L (14-36); Bilirubin,Total 0.6 mg/dL (0.2-1.3); Blood Urea Nitrogen 17 mg/dL (7-17); Calcium 9.7 mg/dL (8.4-10.2); Carbon Dioxide 25 mmol/L (22-30); Chloride 100 mmol/L (98-107); Estimated CRCL calculation 50 ml/min; Estimated Glomerular Filt Rate 55; Glucose 106 mg/dL (65-110); Potassium 3.8 mmol/L (3.4-5.0); Sodium 140 mmol/L (137-145)
[2022-07-28 16:03] LABS: Add Urine Microscopic? YES
--- NOTE | 2022-07-28 16:31 | ED.BACK ---
HPI - Back Pain/Injury General Chief Complaint: Back Pain/Injury Stated Complaint: r flank pain Time Seen by Provider: 07/28/22 15:35 History of Present Illness HPI Narrative: Patient is a 67-year-old female, hypertension, hyperlipidemia presenting with right flank pain. Patient states that starting several hours ago she developed pain in her right lower quadrant that radiates to her right flank. States that it feels similarly to prior kidney stones. Patient has not taken anything for pain yet today. She denies hematuria or dysuria. States she was nauseated this morning but has not vomited. Denies changes in bowel habits. No fevers or chills, headache, chest pain, shortness of breath, cough, leg swelling. Related Data Home Medications Medication Instructions Recorded Confirmed aspirin 81 mg tablet 81 mg PO DAILY 05/05/21 07/16/22 clopidogrel 75 mg tablet 75 mg PO DAILY 05/05/21 07/16/22 furosemide 80 mg tablet 80 mg PO DAILY 05/05/21 07/08/22 irbesartan 75 mg tablet 75 mg PO DAILY 05/05/21 07/08/22 metoprolol tartrate 25 mg tablet 25 mg PO BID 05/05/21 07/16/22 oucfhmbj-oko-efwq-FA-Ca carb-vit K 1 tablet PO DAILY 05/05/21 07/08/22 18 mg iron-400 mcg-500 mg tablet pantoprazole 40 mg tablet,delayed 40 mg PO QAM 09/23/21 07/08/22 release B-complex with vitamin C 1 tablet PO DAILY 09/30/21 07/08/22 atorvastatin 20 mg tablet 20 mg PO DAILY 03/17/22 07/08/22 ezetimibe 10 mg tablet 10 mg PO DAILY 03/17/22 07/08/22 resveratrol 100 mg capsule 500 mg PO QAM 05/24/22 07/08/22 Fish Oil 1 cap QAM 07/08/22 07/08/22 coenzyme Q10 100 mg capsule 100 mg PO DAILY 07/08/22 07/08/22 (CoQ-10) fluocinolone acetonide oil 0.01 % 4 drp LEFT EAR DAILY PRN Itching 07/08/22 07/08/22 ear drops (DermOtic Oil) Allergies Allergy/AdvReac Type Severity Reaction Status Date / Time acetylcysteine Allergy Severe Other Verified 07/28/22 15:51 ciprofloxacin Allergy Severe Rash Verified 07/28/22 15:51 celecoxib Allergy Intermediate rash Verified 07/28/22 15:51 lisinopril Allergy Intermediate cough Verified 07/28/22 15:51 Review of Systems Review of Systems: All systems reviewed & are unremarkable except as noted in HPI and below PMFSH Past Medical History Medical History CAD (coronary artery disease) Encounter for screening colonoscopy 05/26 Repeat 05/31 Essential (primary) hypertension GERD (gastroesophageal reflux disease) Gout History of kidney stones Left hip pain Left knee pain Mixed hyperlipidemia Surgical History Surgical History History of coronary artery stent placement x3 (2006, 2011, 2014) History of endoscopy History of tubal ligation Hx of CABG 2005 Hx of carpal tunnel repair Hx of plastic surgery facial reconstruction Family History Family History Father Hypertension Diabetes mellitus Mother Hypertension Unknown Heart disease Social History Social History Smoking packs per day: 1 Smoking cigarettes per day: 20.0 Years smoked: 48 Smoking pack-years: 48.00 Smoking status: Former smoker Tobacco type: cigarettes Second hand tobacco smoke exposure: No Alcohol intake: current Substance use: never Substance use type: does not use Lack of Transportation: No Lack of Food: Never True Current Housing: I Have Housing Concerned About Future Housing: No Difficulty Paying Gas/Electric Bills: No Difficulty Paying for Meds: No Currently Unemployed: No Education: Associate Degree Difficulty w/ Childcare or Family Care: No Gender identity (if verbalized by the patient): Female Sexual Orientation (if Verbalized by the Patient): Straight or Heterosexual Spiritual care concerns: No Agree to blood products: Yes Exam Narrative: GENERAL: Nontoxic but
[2022-07-28] MEDS: SODIUM CHLORIDE 0.9% IV 1,000 ML 999 ML IV CONT (16:37)
[2022-07-28] MEDS: MORPHINE SULFATE (*CRX) 4 MG/ML INJ IV PUSH (16:37)
[2022-07-28] MEDS: KETOROLAC 15 MG/ML VIAL (*BKC) IV PUSH (18:56)
== END 2022-07-28 20:24 | disposition home or self-care (01) ==
PROVIDERS: Emergency Medicine; Emergency Provider Emergency Medicine; PCP Family Medicine Adolescent Medicine
DX: N20.0 Calculus of kidney (principal); I10 Essential (primary) hypertension; E78.2 Mixed hyperlipidemia; I25.10 Atherosclerotic heart disease of native coronary artery without angina pectoris; K21.9 Gastro-esophageal reflux disease without esophagitis; M10.9 Gout, unspecified; Z87.442 Personal history of urinary calculi; Z79.82 Long term (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 aspirin; Z95.5 Presence of coronary angioplasty implant and graft; Z95.1 Presence of aortocoronary bypass graft; Z87.891 Personal history of nicotine dependence; N21.0 Calculus in bladder; K76.0 Fatty (change of) liver, not elsewhere classified; K57.90 Diverticulosis of intestine, part unspecified, without perforation or abscess without bleeding
CPT/HCPCS: 36415; 74177; 80053; 81001; 81003; 85025; 96361; 96374; 96375; 99284; J1885; J2270; J7030; Q9967

== ENCOUNTER 2022-10-06 11:00 | Outpatient (RCR) | payer MEDICARE, SELFPAY ==
--- NOTE | 2022-07-23 12:00 | PTOPEVAL1 ---
Assessment and note entered by Rakan Lopez, PT, DPT Evaluation Information Assessment Status Evaluation Diagnosis L knee meniscectomy Onset 07/16/22 Subjective Information Pt states initial after surgery she was doing well , the last 2 days she has noticed increased swelling in her knee. She states pain has been an issue since surgery, she has stopped taking her pain medication. Pt states her main goal is no pain. Reported Pain Level Pain Score 6: Self Report Assessment PT Clinical Summary Lina presents to therapy today for her initial evaluation following a L knee arthroscopic meniscectomy on 07/16/22. Today she demonstrate decreased active and passive ROM, limited by pain, she has active flexion to 50 deg and is lacking 15 deg from terminal knee extension actively. She also has decreased strength against gravity noted when performing a short sitting long arc quad. She currently ambulates with a cane at a decreased gait speed and with an antalgic gait pattern. Skilled physical therapy services are indicated to address the deficits noted above, to minimize functional impairment, and to return to baseline function. Plan of Care Interventions Electrical Stimulation,Gait Training,Hot Pack/Cold Pack,Manual Therapy,Neuro Re-education,Patient/ Caregiver Educati,Therapeutic Activities, Therapeutic Exercise PT Services Indicated Yes Treatment Frequency and 2x/wk for 6 wks Duration These treatments will address the objective and functional deficits as defined above. The patient will be advanced safely and appropriately in order for the patient to progress towards his/her prior level of function. Additional exercises will be introduced and as well as a comprehensive home exercise program upon discharge, if needed, ?to ensure carryover of functional gains achieved in the clinic. This treatment plan has been reviewed and agreement upon by the patient.
--- NOTE | 2022-08-17 12:42 | PCPTNOTE ---
Patient request to cancel appointment this date per office staff.
--- NOTE | 2022-08-26 08:19 | PCPTNOTE ---
Cancel due to weather.
--- NOTE | 2022-09-02 14:07 | PTOPPROG ---
Assessment and note entered by Rakan Lopez, PT, DPT Evaluation Information Assessment Status Progress Diagnosis L knee meniscectomy Onset 07/16/22 Subjective Information Pt states her knee is pretty sore today. She states it woke her up last night. She reports 70% improvement in overall symptoms. She states flexion and walking normally is still her biggest limitation. Assessment PT Clinical Summary Mercy presents to therapy today for her progress report following 9 visits of skilled therapy to treat L knee partial meniscectomy. Today she demonstrates improved active and passive L knee flexion and extension, active extension to lacking 5 deg and active flexion to 95 deg. She continues to demonstrate a lateral weight shift during sit< > stand transfers, is still lacking terminal knee extension during a seated long arc quad, and still ambulates with a decreased gait speed. She is progressing well towards her goals. Continuation of skilled physical therapy services are indicated to futher progress strength, ROM, functional transfers, to manage pain, and to return to baseline function. Plan of Care Interventions Electrical Stimulation,Gait Training,Hot Pack/Cold Pack,Manual Therapy,Neuro Re-education,Patient/ Caregiver Educati,Therapeutic Activities, Therapeutic Exercise PT Services Indicated Yes Treatment Frequency and 1x/wk for 5 wks Duration These treatments will address the objective and functional deficits as defined above. The patient will be advanced safely and appropriately in order for the patient to progress towards his/her prior level of function. Additional exercises will be introduced and as well as a comprehensive home exercise program upon discharge, if needed, ?to ensure carryover of functional gains achieved in the clinic. This treatment plan has been reviewed and agreement upon by the patient.
--- NOTE | 2022-09-29 09:22 | PCPTNOTE ---
Patient called to cancel due to weather.
--- NOTE | 2022-10-06 11:40 | PTOPDC ---
Assessment and note entered by Rakan Lopez, PT, DPT Evaluation Information Assessment Status Progress Diagnosis L knee meniscetomy Onset 07/16/22 Subjective Information Pt states she continues to have a lot of pain and tightness in the front and inside of her knee. She reports good compliance with her exercises. She states she still has pain with weight bearing activates, especially stairs. She reports 0/10 pain at rest and 5/10 pain with stairs. Pt reports 90% improvement in overall symptoms. She states she has been going to [employer] classes. Reported Pain Level Pain Score 0: Self Report Assessment PT Clinical Summary Mercy presents to therapy today for her progress report following 12 visits of skilled physical therapy services to treat her L knee meniscectomy. Today she demonstrates L knee ROM that is equal to her R knee ROM. She demonstrates a good gait speed without deviations and demonstrates equal weight distribution during functional transfers. She demonstrates knee strength that is equal bilaterally. Pt has met or progressed well towards all of her therapy goals and no longer requires skilled therapy services at this time. She will be discharged with instruction to continue her HEP and to follow up with her referring provider if needed. Plan of Care PT Services Indicated No Treatment Frequency and to be discharged Duration
== END 2022-10-06 13:14 | disposition home or self-care (01) ==
LOC: ANHGOSHPT 11:00
PROVIDERS: PCP Family Medicine Adolescent Medicine; Visit Provider Physician Assistant Surgical
DX: Z48.89 Encounter for other specified surgical aftercare (principal)
CPT/HCPCS: 97014; 97110; 97112; 97140; 97161; 97530; G0283

== ENCOUNTER 2023-04-12 16:55 | Observation (INO) | payer MEDICARE, SELFPAY ==
[2023-04-12] VITALS (15 sets, daily range): BP systolic 125–166; BP diastolic 65–97; PULSE 66–95; RESP 13–20; TEMP 36.4–36.8; O2SAT 97–99; BMI 36.3
--- NOTE | ~2023-04-12 | XR_ITS ---
EXAMINATION: XR chest 2V Exam Date/Time: 04/12/2023 17:24 CDT HISTORY: cp, TIGHTNESS, SOB FOR 2 DAYS, HTN Comparison: 12/17/2015. RESULT: Lines, tubes, and devices: Intact sternotomy wires. Mediastinal surgical clips.. Lungs and pleura: Mild senescent change, otherwise clear. Cardiomediastinal silhouette: Stable. Other: No acute osseous or upper abdominal finding. IMPRESSION: No acute cardiopulmonary process. Reviewed, dictated and finalized at location K.
--- NOTE | 2023-04-12 16:58 | ECG_ITS ---
Measurements Intervals [place] Rate: 93 P: 50 NE: 146 QRS: 6 QRSD: 93 T: 42 QT: 378 QTc: 471 Interpretive Statements SINUS RHYTHM EARLY TRANSITION POSSIBLE LEFT ATRIAL ENLARGEMENT [-0.1mV P WAVE IN V1/V2] LEFT VENTRICULAR HYPERTROPHY AND ST-T CHANGE [VOLTAGE CRITERIA PLUS ST/T ABNORMALITY] ABNORMAL ECG NO PREVIOUS ECG AVAILABLE FOR COMPARISON Electronically Signed On 04-13-2023 9:17:18 CDT by Gume Pizarro M.D.
[2023-04-12 17:14] LABS: Basophils Absolute Auto 0.1 K/mm3 (0.0-0.1); Basophils Percent Auto 0.6 % (0.2-1.2); Eosinophils Absolute Auto 0.2 K/mm3 (0-0.3); Eosinophils Percent Auto 1.1 % (0-4.4); Hemoglobin 14.3 g/dL (12.0-15.0); Immature Granulocyte Absolute 0.06 K/mm3 (0.00-0.031); Immature Granulocyte Percent A 0.4 % (0-0.5); Lymphocytes Absolute Auto 3.71 K/mm3 (0.9-3.2); Lymphocytes Percent Auto 27.3 % (18.3-44.2); Mean Corpuscular HGB Conc 35.8 g/dl (32-36); Mean Corpuscular Hemoglobin 30.7 pg (26-34); Mean Corpuscular Volume 85.8 fl (80-100); Mean Platelet Volume 9.3 fl (7.4-10.4); Monocytes Percent Auto 7.3 % (2.6-8.5); Neutrophils Absolute Auto 8.6 K/mm3 (1.3-6.7); Neutrophils Percent Auto 63.3 % (45.5-73.1); Platelet Count Result 276 k/mm3 (150-375); Red Blood Count 4.66 M/mm3 (4.2-5.4); White Blood Count 13.6 K/mm3 (4.5-10.0)
[2023-04-12 17:22] LABS: Prothrombin Time 13.6 Seconds (11.1-14.7)
[2023-04-12 17:23] LABS: Partial Thromboplastin Time 45.7 SECONDS (22.3-36.8)
[2023-04-12 17:26] LABS: Alanine Aminotransferase 33 U/L (6-35); Albumin Level 4.6 g/dL (3.5-5.1); Alkaline Phosphatase 146 U/L (38-126); Anion Gap 8 mmol/L (8-16); Aspartate Amino Transferase 32 U/L (14-36); Bilirubin,Total 0.7 mg/dL (0.2-1.3); Blood Urea Nitrogen 19 mg/dL (7-17); Calcium 9.4 mg/dL (8.4-10.2); Carbon Dioxide 26 mmol/L (22-30); Chloride 102 mmol/L (98-107); Estimated CRCL calculation 62 ml/min; Estimated Glomerular Filt Rate > 60; Glucose 103 mg/dL (65-110); Lipase 142 U/L (23-300); Potassium 2.8 mmol/L (3.4-5.0); Sodium 136 mmol/L (137-145)
[2023-04-12 17:34] LABS: Troponin I < 0.012 ng/mL (0.000-0.034)
--- NOTE | 2023-04-12 19:08 | ED.ARRPALP ---
HPI - Arrhythmia/Palpitations General Chief Complaint: Arrhythmia/Palpitations Stated Complaint: naz said afib Time Seen by Provider: 04/12/23 18:49 History of Present Illness HPI narrative: Patient is a 67-year-old female with a history of hypertension, hyperlipidemia, CHF presenting with lightheadedness. Patient states that she was recently on vacation and suffered from altitude sickness. States that she returned a couple of days ago and since that time has been feeling increasingly lightheaded. States that she has been having palpitations and her Fitbit has been picking up to the 100s. States that about a week ago her Fitbit alarmed her that she was in A-fib. Reports some chest tightness which she states is normal for her. No chest pain or shortness of breath. No headache, numbness or weakness, abdominal pain, vomiting, diarrhea, leg swelling. States that she is on daily Lasix and has been compliant. Related Data Home Medications Medication Instructions Recorded Confirmed aspirin 81 mg tablet 81 mg PO HS 05/05/21 04/12/23 clopidogrel 75 mg tablet 75 mg PO DAILY 05/05/21 04/12/23 furosemide 80 mg tablet 80 mg PO DAILY 05/05/21 04/12/23 irbesartan 75 mg tablet 75 mg PO HS 05/05/21 04/12/23 metoprolol tartrate 25 mg tablet 25 mg PO BID 05/05/21 04/12/23 xesbfetj-wdr-xner-FA-Ca carb-vit K 1 tablet PO DAILY 05/05/21 04/12/23 18 mg iron-400 mcg-500 mg tablet B-complex with vitamin C 1 tablet PO DAILY 09/30/21 04/12/23 atorvastatin 20 mg tablet 20 mg PO HS 03/17/22 04/12/23 ezetimibe 10 mg tablet 10 mg PO HS 03/17/22 04/12/23 Fish Oil 1 cap QAM 07/08/22 04/12/23 pantoprazole 40 mg tablet,delayed 40 mg PO DAILY 08/31/22 04/12/23 release gabapentin 300 mg capsule 600 mg PO HS 04/12/23 04/12/23 Allergies Allergy/AdvReac Type Severity Reaction Status Date / Time acetylcysteine Allergy Severe Other Verified 02/23/23 09:38 ciprofloxacin Allergy Severe Rash Verified 02/23/23 09:38 celecoxib Allergy Intermediate rash Verified 02/23/23 09:38 lisinopril Allergy Intermediate cough Verified 02/23/23 09:38 Review of Systems Review of Systems: All systems reviewed & are unremarkable except as noted in HPI and below PMFSH Past Medical History Medical History (Updated 04/13/23 @ 21:11 by Marcelle Mckinley MD) CAD (coronary artery disease) Encounter for screening colonoscopy 05/26 Repeat 05/31 Essential (primary) hypertension GERD (gastroesophageal reflux disease) Gout History of kidney stones Left hip pain Left knee pain Mixed hyperlipidemia Surgical History Surgical History History of colonoscopy History of coronary artery stent placement x3 (2006, 2011, 2014) History of endoscopy History of medial meniscus repair of left knee (~07/16/22) History of tubal ligation Hx of CABG 2006 Hx of carpal tunnel repair Rt trigger finger (thumb) Hx of plastic surgery facial reconstruction Family History Family History Father Diabetes mellitus Hypertension Mother Hypertension Spinal stenosis Unknown Heart disease Social History Social History Smoking packs per day: 1 Smoking cigarettes per day: 20.0 Years smoked: 50 Smoking pack-years: 50.00 Smoking status: Former smoker Tobacco type: cigarettes Second hand tobacco smoke exposure: No Alcohol intake: never Substance use: never Substance use type: does not use Lack of Transportation: No Lack of Food: Never True Current Housing: I Have Housing Concerned About Future Housing: No Difficulty Paying Gas/Electric Bills: No Difficulty Paying for Meds: No Currently Unemployed: No Education: High School Diploma/GED Difficulty w/ Childcare or Family Care: No Living arrangements: with family Occupation/Education: retired Gender identity (if verbalized by the patie
[2023-04-12 19:22] LABS: Magnesium 1.7 mg/dL (1.6-2.3)
[2023-04-12] MEDS: LACTATED RINGERS 1,000 ML 999 ML IV CONT (19:22)
[2023-04-12 19:31] LABS: NT Pro B Type Natriuretic Pept 129 pg/mL (19.9-100)
--- NOTE | 2023-04-12 20:02 | PM.IMHP ---
H&P: HPI History of Present Illness Date/Time: 04/12/23 20:02 Chief Complaint: lightheadedness Narrative: This is a 67-year-old female with past medical history significant for coronary artery disease, coronary artery bypass graft, hypertension, GERD, dyslipidemia, gout, chronic use of Lasix. Patient comes to the emergency room due to lightheadedness, dizziness ongoing for the last 2 weeks or so patient recently came back from a trip to [place] where she had altitude sickness, patient was feeling lightheaded and dizzy since prior to the trip. Now she noted that her fit bid showed atrial fibrillation heart rate oscillating from the 160s to 60s. Patient denies chest pain, shortness of breath, leg swelling, no PND, no orthopnea, no syncope, no fevers no rigors no chills no cough no sputum production. In emergency room patient was found to have a potassium of 2.8, patient states that she has been taking Lasix is for years . EXAMINATION:? XR chest 2V Exam Date/Time:? 04/12/2023 17:24 CDT HISTORY: cp, TIGHTNESS, SOB FOR 2 DAYS, HTN ? Comparison:? 12/17/2015. RESULT: Lines, tubes, and devices:? Intact sternotomy wires. Mediastinal surgical clips.. Lungs and pleura:? Mild senescent change, otherwise clear. Cardiomediastinal silhouette:? Stable. Other:? No acute osseous or upper abdominal finding. ? IMPRESSION: No acute cardiopulmonary process. Review of Systems Review of Systems: lightheaded, dizzy, abnormal heart rate and rhythm according to patient's electronic device fit bit Constitutional: Constitutional: Denies chills, Denies fatigue, Denies fever(s), Denies night sweats, Denies poor appetite and Denies weakness Eyes: Eyes: Denies change in vision ENT: Denies dysphagia, Reports dizziness, Denies headache(s) and Denies odynophagia Cardiovascular: Cardiovascular: Denies chest pain, Denies syncope, Reports irregular heart rhythm, Denies leg edema, Reports lightheadedness, Denies radiating jaw, neck or arm pain, Reports palpitations, Denies orthopnea and Denies paroxysmal nocturnal dyspnea Respiratory: Respiratory: Denies chest congestion, Denies cough and Denies excessive phlegm production Gastrointestinal: Gastrointestinal: Denies abdominal pain, Denies dyspepsia, Denies heartburn, Denies diarrhea, Denies nausea and Denies vomiting Genitourinary: Genitourinary: Denies dysuria Musculoskeletal: Musculoskeletal: Denies myalgias Integumentary/Breasts: Skin/Breast: Denies rash Neurologic: Denies syncope, Denies focal weakness and Denies Sensory deficit (Neuro) Psychiatric: Psychiatric: Reports no additional psychiatric complaints and Reports as per HPI Endocrine: Endocrine: Denies cold intolerance, Denies fatigue, Denies flushing, Denies heat intolerance, Denies polyphagia, Denies polydipsia and Denies polyuria Hematologic/Lymphatic: Hematologic/Lymphatic: Denies no additional hematologic/lymphatic complaints and Denies as per HPI Allergic/Immunologic: Allergic/Immunologic: Reports no additional allergic/immunologic complaints and Reports as per HPI PMFSH Past Medical History Medical History (Updated 04/13/23 @ 03:07 by Connor Adams MD) CAD (coronary artery disease) Encounter for screening colonoscopy 05/26 Repeat 05/31 Essential (primary) hypertension GERD (gastroesophageal reflux disease) Gout History of kidney stones Left hip pain Left knee pain Mixed hyperlipidemia Surgical History Surgical History History of colonoscopy History of coronary artery stent placement x3 (2006, 2011, 2014) History of endoscopy History of medial meniscus repair of left knee (~07/16/22) History of tubal ligation Hx of CABG 2006 Hx of carpal tunnel repair Rt trigger finger (thumb) Hx of plastic surgery facial reconstruction Family History Family History Father Diabetes mellitus Hyp
[2023-04-12] MEDS: POTASSIUM CHLORIDE 20 MEQ ER TABLET 40 MEQ PO (20:06)
[2023-04-12 20:23] LABS: Troponin I < 0.012 ng/mL (0.000-0.034)
[2023-04-12] MEDS: POTASSIUM CHLORIDE INJ 40 MEQ in SODIUM CHLORIDE 0.9% IV 500 ML 130 MEQ IVPB (21:02)
--- NOTE | 2023-04-12 22:15 | ADMGEN ---
This patient, Mercy Mirza, was admitted to IMU Room 209-01 at 2215 on 04/12/2023. Patient/family oriented to hospital policies and general routines including ID bracelet, bed and alarms, visiting hours, pain management, procedures, bathroom and other care routines, personal items, smoking policy, room service/diet, and visiting hours. Information on how to activate the Rapid Response Team has been discussed. Patient/Family are encouraged to report perceived risks to care and to ask questions if they do not understand what they are told or what they should do.
[2023-04-12] MEDS: MAGNESIUM SULF 2 GM/WATER 50ML 2 GM/50 ML BAG IVPB (23:11)
[2023-04-12 23:52] LABS: Troponin I < 0.012 ng/mL (0.000-0.034)
[2023-04-13] VITALS (10 sets, daily range): BP systolic 122–126; BP diastolic 57–64; PULSE 58–80; RESP 20; TEMP 35.6–36.8; O2SAT 96–98
[2023-04-13] MEDS: GABAPENTIN 300 MG CAPSULE 600 MG PO (00:29)
[2023-04-13] MEDS: METOPROLOL TARTRATE 25 MG TABLET PO ×2 (00:30→08:13)
[2023-04-13] MEDS: ASPIRIN 81 MG ENTERIC TABLET PO (00:30)
[2023-04-13] MEDS: ATORVASTATIN 20 MG TABLET PO (00:30)
[2023-04-13] MEDS: IRBESARTAN 75 MG TABLET PO (00:30)
[2023-04-13 05:37] LABS: Anion Gap 4 mmol/L (8-16); Blood Urea Nitrogen 16 mg/dL (7-17); Calcium 8.5 mg/dL (8.4-10.2); Carbon Dioxide 26 mmol/L (22-30); Chloride 107 mmol/L (98-107); Estimated CRCL calculation 69 ml/min; Estimated Glomerular Filt Rate > 60; Glucose 101 mg/dL (65-110); Magnesium 2.4 mg/dL (1.6-2.3); Potassium 3.5 mmol/L (3.4-5.0); Sodium 137 mmol/L (137-145)
[2023-04-13] MEDS: PANTOPRAZOLE 40 MG TABLET PO (08:13)
[2023-04-13] MEDS: CLOPIDOGREL BISULFATE 75 MG TABLET PO (08:13)
--- NOTE | 2023-04-13 10:53 | PM.DS ---
DS: Admitting Diagnosis Discharge Date 04/13/2023 Admitting Diagnosis Hypokalemia Dizziness DS: Discharge Diagnosis Discharge Diagnosis (1) Hypokalemia: Code(s): E87.6 - Hypokalemia Status: Acute (2) CAD (coronary artery disease): Code(s): I25.10 - Atherosclerotic heart disease of [place] coronary artery without angina pectoris Status: Acute DS: Summary Hospital Course Hospital Course: This is a 67-year-old female with past medical history significant for coronary artery disease, coronary artery bypass graft, hypertension, GERD, dyslipidemia, gout,? chronic use of Lasix.? Patient comes to the emergency room due to lightheadedness, dizziness ongoing for the last 2 weeks or so patient recently came back from a trip to [place] where she had ? altitude sickness, patient was feeling lightheaded and dizzy since prior to the trip.? she? noted that 1 week back her fitbit showed atrial fibrillation heart rate oscillating from the 160s to 60s.? Patient denies chest pain, shortness of breath, leg swelling, no PND, no orthopnea, no syncope, no fevers no rigors no chills no cough no sputum production.? In emergency room patient was found to have a potassium of 2.8, EKG showed normal sinus rhythm. Patent patient's potassium was supplemented and is normal now. Patient is on Arb at home but still has low potassium likely due to Lasix. Will discharge her home today with low-dose potassium. Time Spent with Patient Time attestation: Total time spent providing and/or coordinating discharge services: DS: Data Data Completed and Pending Labs on day of discharge: Labs from last 24 hours 04/13/23 04/12/23 04/12/23 04:29 23:06 19:56 WBC RBC Hgb Hct MCV MCH MCHC RDW Plt Count MPV Immature Gran % (Auto) Neut % (Auto) Lymph % (Auto) [place] % (Auto) Eos % (Auto) Baso % (Auto) Lymph # (Auto) [place] # (Auto) Eos # (Auto) Baso # (Auto) Abs Immat Gran (auto) Absolute Neuts (auto) Absolute Nucleated RBC Nucleated RBC % PT INR APTT Sodium 137 Potassium 3.5 Chloride 107 Carbon Dioxide 26 Anion Gap 4 L BUN 16 Creatinine 0.70 Estim Creat Clear Calc 69 Estimated GFR > 60 Glucose 101 Calcium 8.5 Magnesium 2.4 H Total Bilirubin AST ALT Alkaline Phosphatase Troponin I < 0.012 < 0.012 NT-Pro-B Natriuret Pep Total Protein Albumin Lipase 04/12/23 17:05 WBC 13.6 H RBC 4.66 Hgb 14.3 Hct 40.0 MCV 85.8 MCH 30.7 MCHC 35.8 RDW 13.0 Plt Count 276 MPV 9.3 Immature Gran % (Auto) 0.4 Neut % (Auto) 63.3 Lymph % (Auto) 27.3 [place] % (Auto) 7.3 Eos % (Auto) 1.1 Baso % (Auto) 0.6 Lymph # (Auto) 3.71 H [place] # (Auto) 1.0 H Eos # (Auto) 0.2 Baso # (Auto) 0.1 Abs Immat Gran (auto) 0.06 H Absolute Neuts (auto) 8.6 H Absolute Nucleated RBC 0.0 Nucleated RBC % 0.0 PT 13.6 INR 1.0 APTT 45.7 H Sodium 136 L Potassium 2.8 L* Chloride 102 Carbon Dioxide 26 Anion Gap 8 BUN 19 H Creatinine 0.80 Estim Creat Clear Calc 62 Estimated GFR > 60 Glucose 103 Calcium 9.4 Magnesium 1.7 Total Bilirubin 0.7 AST 32 ALT 33 Alkaline Phosphatase 146 H Troponin I < 0.012 NT-Pro-B Natriuret Pep 129 H Total Protein 8.0 Albumin 4.6 Lipase 142 Discharge Plan Discharge Discharging Clinician: Randy Lott Anticipated Discharge Date/Time: 04/13/23 10:52 Patient Disposition: Home, Self-Care Activity: no preference Diet: heart healthy Patient Instructions: Antibiotic Form Stand Alone Forms: General Discharge Information Follow-up/Referrals: Bert Glez MD [Primary Care Provider] - Discharge Medications: New potassium chloride 20 mEq tablet extended release 20 meq PO DAILY Qty: 30 0RF Continued ezetimibe 10 mg tablet 10 mg PO HS atorvastatin 20 mg tablet 20 mg PO HS fletcher
== END 2023-04-13 11:55 | disposition home or self-care (01) ==
LOC: ANHED 18:49 → ANHIMU 20:49
PROVIDERS: Emergency Medicine; Admitting Provider Internal Medicine; Emergency Provider Emergency Medicine; PCP Family Medicine Adolescent Medicine; Visit Provider Hospitalist
DX: E87.6 Hypokalemia (principal); I25.10 Atherosclerotic heart disease of native coronary artery without angina pectoris; G60.9 Hereditary and idiopathic neuropathy, unspecified; I48.91 Unspecified atrial fibrillation; R06.02 Shortness of breath; I10 Essential (primary) hypertension; E78.2 Mixed hyperlipidemia; K21.9 Gastro-esophageal reflux disease without esophagitis; M10.9 Gout, unspecified; Z95.5 Presence of coronary angioplasty implant and graft; Z95.1 Presence of aortocoronary bypass graft; Z87.891 Personal history of nicotine dependence; Z79.02 Long term (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 antithrombotics/antiplatelets; Z79.82 Long term (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 aspirin
CPT/HCPCS: 36415; 71046; 80048; 80053; 83690; 83735; 83880; 84484; 85025; 85610; 85730; 93005; 96361; 96374; 96375; 99285; A9270; G0378; J3475; J3480; J7040; J7120

== ENCOUNTER 2023-04-18 10:05 | Outpatient (CLI) | payer MEDICARE, SELFPAY ==
[2023-04-18 10:58] LABS: Anion Gap 9 mmol/L (8-16); Blood Urea Nitrogen 16 mg/dL (7-17); Calcium 9.3 mg/dL (8.4-10.2); Carbon Dioxide 31 mmol/L (22-30); Chloride 99 mmol/L (98-107); Estimated Glomerular Filt Rate > 60; Glucose 126 mg/dL (65-110); Sodium 139 mmol/L (137-145)
== END 2023-04-18 10:06 | disposition home or self-care (01) ==
LOC: ANHLAB 10:06
PROVIDERS: PCP Family Medicine Adolescent Medicine; Visit Provider Hospitalist
DX: E87.6 Hypokalemia (principal)
CPT/HCPCS: 36415; 80048

== ENCOUNTER → 2023-09-21 11:02 | Outpatient (CLI) | payer MEDICARE, SELFPAY ==
--- NOTE | ~2023-09-21 | MM_ITS ---
EXAMINATION: MM screening mayito BI w cat HISTORY: Screening TECHNIQUE: Craniocaudal and mediolateral oblique 3-D tomosynthesis images were obtained and synthetic 2-D images were generated. CAD analysis was submitted and interpreted. COMPARISON: Comparison to multiple prior studies sequentially, with oldest reviewed study dated 12/2016. BREAST PARENCHYMAL COMPOSITION: There are scattered areas of fibroglandular density. FINDINGS: There is no evidence of suspicious mass, calcification, or architectural distortion to sugg est malignancy in either breast. There has been no suspicious interval change. IMPRESSION: 1. No mammographic evidence of malignancy. 2. Recommend routine screening mammography in one year. BI-RADS Category 1: Negative Reviewed, dictated and finalized at location A. [facility]
== END ==
PROVIDERS: PCP Family Medicine Adolescent Medicine; Visit Provider Family Medicine Adolescent Medicine
DX: Z12.31 Encounter for screening mammogram for malignant neoplasm of breast (principal)
CPT/HCPCS: 77063; 77067

== ENCOUNTER 2023-12-26 21:33 | Observation (INO) | payer MEDICARE, SELFPAY ==
--- NOTE | ~2023-12-26 | XR_ITS ---
EXAMINATION: XR chest 1V portable Exam Date/Time: 12/26/2023 22:00 CDT HISTORY: cp Comparison: 04/12/2023, report only. RESULT: Lines, tubes, and devices: Intact sternotomy wires. Mediastinal surgical clips. Lungs and pleura: Mild diffuse reticular opacities.. Cardiomediastinal silhouette: Stable. Other: No acute osseous or upper abdominal finding. IMPRESSION: Mild interstitial edema. Reviewed, dictated and finalized at location K. IMPRESSION: Mild interstitial edema.
--- NOTE | ~2023-12-26 | CT_ITS ---
EXAMINATION: CT brain wo con DATE: 12/26/2023 22:44 INDICATION: cva symptoms . TECHNIQUE: Computed tomography (CT) of the head was performed without intravenous contrast. The mA wa s adjusted according to patient size. Iterative reconstruction technique was employed. The dose-lengt h product was 605.33 mGy-cm. COMPARISON: 07/10/2006, report only. FINDINGS: No acute intracranial hemorrhage or extra-axial fluid collection. No hydrocephalus, mass, or herniation. No acute ischemic infarct. Unremarkable dural venous sinus attenuation. No acute osseous abnormality. The aerated spaces are clear. Moderate atrophy and mild chronic white matter change. Atherosclerotic intracranial calcification. IMPRESSION: No acute intracranial process. Reviewed, dictated and finalized at location K.
--- NOTE | 2023-12-26 21:35 | ECG_ITS ---
SEE SCANNED COPY FOR CONFIRMED REPORT MTDD
[2023-12-26 21:54] VITALS: BP 142/70; PULSE 152
[2023-12-26] MEDS: dilTIAZem 100 MG/100 ML 100 MG/100 ML BAG IV CONT (21:54)
[2023-12-26] MEDS: dilTIAZem HCl INJ 25 MG/5 ML VIAL 20 MG IV PUSH (21:54)
[2023-12-26 21:56] LABS: Basophils Absolute Auto 0.1 K/mm3 (0.0-0.1); Basophils Percent Auto 0.5 % (0.2-1.2); Eosinophils Absolute Auto 0.2 K/mm3 (0-0.3); Eosinophils Percent Auto 1.2 % (0-4.4); Hematocrit 41.3 % (37.0-47.0); Hemoglobin 14.3 g/dL (12.0-15.0); Immature Granulocyte Absolute 0.06 K/mm3 (0.00-0.031); Immature Granulocyte Percent A 0.4 % (0-0.5); Lymphocytes Absolute Auto 4.95 K/mm3 (0.9-3.2); Lymphocytes Percent Auto 37.1 % (18.3-44.2); Mean Corpuscular HGB Conc 34.6 g/dl (32-36); Mean Corpuscular Hemoglobin 30.8 pg (26-34); Mean Corpuscular Volume 88.8 fl (80-100); Mean Platelet Volume 9.6 fl (7.4-10.4); Monocytes Absolute Auto 1.1 K/mm3 (0.1-0.6); Monocytes Percent Auto 8.2 % (2.6-8.5); Neutrophils Percent Auto 52.6 % (45.5-73.1); Platelet Count Result 286 k/mm3 (150-375); Red Blood Count 4.65 M/mm3 (4.2-5.4); Red Cell Distribution Width 12.9 % (11.5-14.5); White Blood Count 13.4 K/mm3 (4.5-10.0)
[2023-12-26 21:58] VITALS: BP 142/70; PULSE 172; RESP 15; TEMP 36.6; O2SAT 95
[2023-12-26 22:06] LABS: Alanine Aminotransferase 27 U/L (6-35); Alkaline Phosphatase 157 U/L (38-126); Anion Gap 10 mmol/L (4-12); Aspartate Amino Transferase 29 U/L (14-36); Bilirubin,Total 0.7 mg/dL (0.2-1.3); Blood Urea Nitrogen 25 mg/dL (7-17); Calcium 10.1 mg/dL (8.4-10.2); Carbon Dioxide 28 mmol/L (22-30); Chloride 102 mmol/L (98-107); Estimated Glomerular Filt Rate 49; Glucose 171 mg/dL (65-110); Lipase 176 U/L (23-300); Potassium 3.1 mmol/L (3.4-5.0); Prothrombin Time 13.2 Seconds (11.1-14.7); Sodium 140 mmol/L (137-145)
[2023-12-26 22:07] VITALS: BP 116/70; PULSE 88; RESP 15; O2SAT 95
[2023-12-26 22:07] LABS: Partial Thromboplastin Time 53.8 Seconds (22.3-36.8)
[2023-12-26] MEDS: diphenhydrAMINE HCl INJ 50 MG/ML VIAL 25 MG IV PUSH (22:07)
[2023-12-26 22:18] LABS: Troponin I < 0.012 ng/mL (0.000-0.034)
[2023-12-26 23:28] VITALS: BP 94/58; PULSE 88; RESP 15; O2SAT 97
--- NOTE | 2023-12-26 23:28 | ED.GENADULT ---
HPI - General Adult General Chief complaint: Chest Pain Stated complaint: im having a heart attack or stroke x 1 hour Time Seen by Provider: 12/26/23 21:48 History of Present Illness HPI narrative: Patient is a 68-year-old female presents emergency department chief complaint of chest pain and palpitations. Patient reports this evening she started feeling as though her heart was racing and was in the 170s. Patient states she felt short of breath when this happened patient does have prior history of cardiac disease and has had a bypass in 2005 and stents afterwards. Patient does report that she has a stress test scheduled for Tuesday Related Data Home Medications Medication Instructions Recorded Confirmed aspirin 81 mg tablet 81 mg PO HS 05/05/21 12/05/23 clopidogrel 75 mg tablet 75 mg PO DAILY 05/05/21 12/05/23 furosemide 80 mg tablet 80 mg PO DAILY 05/05/21 12/05/23 irbesartan 75 mg tablet 75 mg PO HS 05/05/21 12/05/23 metoprolol tartrate 25 mg tablet 25 mg PO BID 05/05/21 12/05/23 atorvastatin 20 mg tablet 20 mg PO HS 03/17/22 12/05/23 ezetimibe 10 mg tablet 10 mg PO HS 03/17/22 12/05/23 Fish Oil 1 cap QAM 07/08/22 12/05/23 Allergies Allergy/AdvReac Type Severity Reaction Status Date / Time acetylcysteine Allergy Severe Other Verified 12/21/23 10:05 ciprofloxacin Allergy Severe Rash Verified 12/21/23 10:05 celecoxib Allergy Intermediate rash Verified 12/21/23 10:05 lisinopril Allergy Intermediate cough Verified 12/21/23 10:05 duloxetine AdvReac Unknown Rash Verified 12/21/23 10:05 adhesive tape Allergy Intermediate Blister Uncoded 12/21/23 10:05 Review of Systems Review of Systems: A 10 system review of systems was completed on the patient and is negative except for what is stated in the HPI. Nursing and ancillary documentation was reviewed. [facility] Past Medical History Medical History VALENTIN positive Encounter for screening colonoscopy 05/26 Repeat 05/31 Essential (primary) hypertension GERD (gastroesophageal reflux disease) Gout History of kidney stones Hyperglycemia Hypokalemia Left hip pain Left knee pain Mixed hyperlipidemia Peripheral neuropathy Surgical History Surgical History History of colonoscopy History of coronary artery stent placement x3 (2006, 2011, 2014) History of endoscopy History of medial meniscus repair of left knee (~07/16/22) History of tubal ligation Hx of CABG 2006 Hx of carpal tunnel repair Rt trigger finger (thumb) Hx of plastic surgery facial reconstruction Family History Family History Father Diabetes mellitus Hypertension Mother Hypertension Spinal stenosis Unknown Heart disease Social History Social History Smoking packs per day: 1 Smoking cigarettes per day: 20.0 Years smoked: 50 Smoking pack-years: 50.00 Smoking status: Former smoker Tobacco type: cigarettes Second hand tobacco smoke exposure: No Alcohol intake: never Substance use: never Substance use type: does not use Do You Feel Safe in your Home?: Yes Lack of Transportation: No Lack of Food: Never True Current Housing: I Have Housing Concerned About Future Housing: No Difficulty Paying Gas/Electric Bills: No Difficulty Paying for Meds: No Currently Unemployed: No Education: Associate Degree Difficulty w/ Childcare or Family Care: No Living arrangements: with family Occupation/Education: retired Gender identity (if verbalized by the patient): Female Sexual Orientation (if Verbalized by the Patient): Straight or Heterosexual Spiritual care concerns: No Agree to blood products: Yes Exam Narrative: GENERAL: Well-appearing, well-nourished, and in no acute distress. HEAD: Normocephalic, atraumat
[2023-12-26 23:56] VITALS: BP 88/50; PULSE 82
[2023-12-26] MEDS: SODIUM CHLORIDE 0.9% IV 500 ML 999 ML IV CONT (23:56)
[2023-12-27] VITALS (12 sets, daily range): BP systolic 94–143; BP diastolic 54–64; PULSE 54–80; RESP 15–20; TEMP 35.8–36.4; O2SAT 94–100; BMI 37.2
--- NOTE | 2023-12-27 | ECHO_ITS ---
Patient Info Name: Mercy Mirza Age: 68 years : 1955 Gender: Female Ht: 62 in Wt: 203 lbs BSA: 2.05 m2 HR: 74 bpm BP: 143 / 63 mmHg Heart Rhythm: Sinus Rhythm Technical Quality: Fair Exam Date: 12/27/2023 3:29 PM Exam Location: Echo Lab Patient Status: Inpatient Admit Date: 12/27/2023 Staff Ordering Physician: Sina Villatoro MD Crm Architect: Aliyah Pierre RDCS Attending Provider: Connor Adams MD Exam Type: CA echo dop color flow w con Study Info Indications - dysrhythmias Complete two-dimensional, color flow and Doppler transthoracic echocardiogram is performed with contrast to opacify the left ventricle and to improve the deliniation of the left ventricle endocardial borders. Contrast/Agitated Saline Contrast/Ag. Saline: Definity Amount: 2.00 ml Administered By: Aliyah Pierre RDCS Existing IV Access: Yes IV Access Condition: patent with no signs of infiltration Summary 1. Left ventricular chamber dimension is normal. 2. Left ventricular systolic function is normal, estimated at 65-70%. 3. There is mildly increased left ventricular wall thickness. 4. The left ventricular diastolic function is grade I diastolic dysfunction. 5. Right ventricular systolic function is normal. 6. No significant valvular disease. Left Ventricle Left ventricular chamber dimension is normal. Left ventricular systolic function is normal, estimated at 65-70%. There is mildly increased left ventricular wall thickness. The left ventricular diastolic function is grade I diastolic dysfunction. Right Ventricle Right ventricular chamber dimension is normal. Right ventricular systolic function is normal. Left Atria Left atrial chamber dimension is normal. Right Atria Right atrial chamber dimension is normal. Atrial Septum Intact interatrial septum visualized by color flow imaging. Aortic Valve The aortic valve is probable trileaflet. There is no aortic valve stenosis. There is no aortic valve regurgitation. There is mild aortic valve calcification. Pulmonic Valve The pulmonic valve is not well visualized. There is no pulmonic regurgitation. Mitral Valve There is trace mitral valve regurgitation. Tricuspid Valve There is trace tricuspid valve regurgitation. Pericardium/Pleural There is no pericardial effusion. Inferior Vena Cava Inferior vena cava is not well visualized. Aorta The aortic root size at the sinus of Valsalva is normal. Left Ventricular Outflow Tract Name Value Normal LVOT 2D LVOT Diameter 1.97 cm LVOT Doppler LVOT Peak Gradient 7 mmHg LVOT Mean Gradient 3 mmHg LVOT VTI 26.24 cm LVOT VTI/AV VTI Ratio 0.93 LVOT Stroke Volume 79.81 ml LVOT CO 4.81 l/min LVOT CI 2.34 L/min/m2 Pulmonic Valve Name Value Normal RVOT Doppler
[2023-12-27 01:18] LABS: Troponin I 0.135 ng/mL (0.000-0.034)
--- NOTE | 2023-12-27 01:58 | ADMGEN ---
This patient, Meryc Mirza, was admitted to IMU Room 203-01. Patient/family oriented to hospital policies and general routines including ID bracelet, bed and alarms, visiting hours, pain management, procedures, bathroom and other care routines, personal items, smoking policy, room service/diet, and visiting hours. Information on how to activate the Rapid Response Team has been discussed. Patient/Family are encouraged to report perceived risks to care and to ask questions if they do not understand what they are told or what they should do.
[2023-12-27 04:40] LABS: Troponin I 0.303 ng/mL (0.000-0.034)
--- NOTE | 2023-12-27 08:56 | PM.IMHP ---
H&P: HPI History of Present Illness Date/Time: 12/27/23 08:56 Chief Complaint: Palpitation/chest pain Narrative: Patient is a 68-year-old female presents emergency department chief complaint of chest pain and palpitations.? Patient reports this evening she started feeling as though her heart was racing and was in the 170s.? Patient states she felt short of breath when this happened. Patient does have prior history of cardiac disease and has had a bypass in 2005 and stents afterwards.? Patient does report that she has a stress test scheduled for Tuesday Review of Systems Review of Systems: - CONSTITUTIONAL: Denies weight loss, fever and chills. - HEENT: Denies changes in vision and hearing - RESPIRATORY: Reports SOB and denies cough. - CV: Reports palpitations and CP. - GI: Denies abdominal pain, nausea, vomiting and diarrhea. - : Denies dysuria and urinary frequency. - MSK: Denies myalgia and joint pain. - SKIN: Denies rash and pruritus. - NEUROLOGICAL: Denies headache and syncope. - PSYCHIATRIC: Denies recent changes in mood. Denies anxiety and depression. [facility] [place] Past Medical History Medical History VALENTIN positive Encounter for screening colonoscopy 05/26 Repeat 05/31 Essential (primary) hypertension GERD (gastroesophageal reflux disease) Gout History of kidney stones Hyperglycemia Hypokalemia Left hip pain Left knee pain Mixed hyperlipidemia Peripheral neuropathy Surgical History Surgical History History of colonoscopy History of coronary artery stent placement x3 (2006, 2011, 2014) History of endoscopy History of medial meniscus repair of left knee (~07/16/22) History of tubal ligation Hx of CABG 2005 Hx of carpal tunnel repair Rt trigger finger (thumb) Hx of plastic surgery facial reconstruction Family History Family History Father Diabetes mellitus Hypertension Mother Hypertension Spinal stenosis Unknown Heart disease Social History Social History Smoking packs per day: 1 Smoking cigarettes per day: 20.0 Years smoked: 50 Smoking pack-years: 50.00 Smoking status: Former smoker Tobacco type: cigarettes Second hand tobacco smoke exposure: No Alcohol intake: never Substance use: never Substance use type: does not use Do You Feel Safe in your Home?: Yes Lack of Transportation: No Lack of Food: Never True Current Housing: I Have Housing Concerned About Future Housing: No Difficulty Paying Gas/Electric Bills: No Difficulty Paying for Meds: No Currently Unemployed: No Education: High School Diploma/GED Difficulty w/ Childcare or Family Care: No Living arrangements: with family Occupation/Education: retired Gender identity (if verbalized by the patient): Female Sexual Orientation (if Verbalized by the Patient): Straight or Heterosexual Spiritual care concerns: No Agree to blood products: Yes Meds Home Medications and Allergies Home Medications Medication Instructions Recorded Confirmed Type aspirin 81 mg tablet 81 mg PO HS 05/05/21 12/27/23 History clopidogrel 75 mg tablet 75 mg PO DAILY 05/05/21 12/27/23 History furosemide 80 mg tablet 80 mg PO DAILY 05/05/21 12/27/23 History irbesartan 75 mg tablet 75 mg PO HS 05/05/21 12/27/23 History metoprolol tartrate 25 mg tablet 25 mg PO BID 05/05/21 12/27/23 History atorvastatin 20 mg tablet 20 mg PO HS 03/17/22 12/27/23 History ezetimibe 10 mg tablet 10 mg PO HS 03/17/22 12/27/23 History Fish Oil 1 cap PO QAM 07/08/22 12/27/23 History sertraline 25 mg tablet (Zoloft) 25 mg PO DAILY #60 tabs 12/21/23 12/27/23 Rx gabapentin 300 mg capsule 600 mg PO Q8H 12/27/23 12/27/23 History potassium chloride 20 mEq 20 meq PO DAILY 12/27/23 0
[2023-12-27 09:20] LABS: Basophils Absolute Auto 0.1 K/mm3 (0.0-0.1); Basophils Percent Auto 0.5 % (0.2-1.2); Eosinophils Absolute Auto 0.1 K/mm3 (0-0.3); Eosinophils Percent Auto 1.5 % (0-4.4); Hematocrit 38.2 % (37.0-47.0); Hemoglobin 12.6 g/dL (12.0-15.0); Immature Granulocyte Absolute 0.04 K/mm3 (0.00-0.031); Immature Granulocyte Percent A 0.4 % (0-0.5); Lymphocytes Absolute Auto 2.99 K/mm3 (0.9-3.2); Mean Corpuscular Hemoglobin 30.7 pg (26-34); Mean Corpuscular Volume 92.9 fl (80-100); Mean Platelet Volume 9.9 fl (7.4-10.4); Monocytes Absolute Auto 0.8 K/mm3 (0.1-0.6); Monocytes Percent Auto 8.4 % (2.6-8.5); Neutrophils Absolute Auto 5.3 K/mm3 (1.3-6.7); Neutrophils Percent Auto 57.2 % (45.5-73.1); Platelet Count Result 241 k/mm3 (150-375); Red Blood Count 4.11 M/mm3 (4.2-5.4); White Blood Count 9.4 K/mm3 (4.5-10.0)
[2023-12-27 09:39] LABS: Alanine Aminotransferase 23 U/L (6-35); Albumin Level 3.9 g/dL (3.5-5.1); Alkaline Phosphatase 123 U/L (38-126); Anion Gap 6 mmol/L (4-12); Aspartate Amino Transferase 24 U/L (14-36); Bilirubin,Total 0.5 mg/dL (0.2-1.3); Blood Urea Nitrogen 20 mg/dL (7-17); Calcium 9.2 mg/dL (8.4-10.2); Carbon Dioxide 28 mmol/L (22-30); Chloride 106 mmol/L (98-107); Estimated CRCL calculation 61 ml/min; Estimated Glomerular Filt Rate > 60; Glucose 105 mg/dL (65-110); Magnesium 2.1 mg/dL (1.6-2.3); Potassium 3.3 mmol/L (3.4-5.0); Sodium 140 mmol/L (137-145)
--- NOTE | 2023-12-27 10:25 | PM.CNCAR ---
Assessment and Plan Assessment and plan (1) Atrial fibrillation with rapid ventricular response: Code(s): I48.91 - Unspecified atrial fibrillation Status: Acute Assessment and Plan: New diagnosis atrial fibrillation with rapid ventricular response, rate initially in the 170s. She spontaneously converted to sinus rhythm on diltiazem. Maintaining sinus rhythm currently. She has a CHADS2 Vasc score of at least 4, anticoagulation is indicated. Will start her on Xarelto 20 mg daily. She remains on dual anti-platelet therapy for her coronary artery disease. Most recent intervention in 2015, therefore does not require DAPT and with addition of Xarelto will discontinue Plavix. Continue aspirin. Echocardiogram has been ordered and is pending Will increase metoprolol to 75 mg daily for maintenance of sinus rhythm Potassium 3.3 today, she is on daily KCL supplementation She follows with Dr. Godinez. Should follow up with him in a couple of weeks. (2) Atherosclerotic heart disease of [place] coronary artery without angina pectoris: Code(s): I25.10 - Atherosclerotic heart disease of [place] coronary artery without angina pectoris Status: Acute Assessment and Plan: Extensive history of coronary artery disease as detailed in the HPI. She has a stress test scheduled on Tuesday with her established channeler runner because of some recent complaints of chest pressure. I told her she should keep this appointment. Her development of atrial fibrillation may represent worsening underlying coronary artery disease. She did have a mild troponin leak initially with negative enzymes, then elevating to 0.135, 0.303. I do not think this represents an acute coronary syndrome, rather, myocardial injury in the setting of tachycardia with known underlying coronary artery disease. (3) Hypertension: Code(s): I10 - Essential (primary) hypertension Status: Acute Assessment and Plan: At goal, actually little hypotensive this morning. (4) Hyperlipidemia: Code(s): E78.5 - Hyperlipidemia, unspecified Status: Acute Assessment and Plan: Continue statin. History of Present Illness History of Present Illness Consult date/time: 12/27/23 10:25 Requesting physician: Sina Villatoro MD Consult reason: atrial fibrillation Reason For Visit: AFIB with Rapid Ventricular Response,Chest Pain Narrative: Mercy Mirza is a 68 year old female with coronary artery disease (s/p CABG x 2 in 2005, stent placements in 2006, 2011, and 2014), hyperlipidemia, and hypertension. She presented to the hospital yesterday because of a sensation of ?not feeling right. ? She was experiencing palpitations. EKG on her chart demonstrates atrial fibrillation with controlled ventricular response. She was placed on a diltiazem drip and spontaneously converted to sinus rhythm and remains in sinus rhythm now. She denies any history of confirmed or documented atrial fibrillation but does state that her fitness watch has notified her in the past that she is in atrial fibrillation. Currently, she denies any palpitations, chest pain, shortness of breath. Her only complaint is fatigue. Review of Systems Review of Systems: All systems reviewed & are unremarkable except as noted in HPI and below PMFSH Past Medical History Medical History VALENTIN positive Encounter for screening colonoscopy 05/26 Repeat 05/31 Essential (primary) hypertension GERD (gastroesophageal reflux disease) Gout History of kidney stones Hyperglycemia Hypokalemia Left hip pain Left knee pain Mixed hyperlipidemia Peripheral neuropathy Surgical History Surgical History History of colonoscopy History of coronary artery stent placement x3 (2006, 2011, 2014) History of endoscopy History of medial meniscus repair of left knee (~07/16/22) History of tuba
[2023-12-27] MEDS: OMEGA 3 POLYUNSAT FATTY ACIDS 1 GM CAP PO (11:09)
[2023-12-27] MEDS: METOPROLOL TARTRATE 25 MG TABLET PO (11:09)
[2023-12-27] MEDS: ENOXAPARIN 100 MG/ML SYRINGE 90 MG SUB-Q (11:10)
[2023-12-27] MEDS: POTASSIUM CHLORIDE 20 MEQ ER TABLET PO (11:10)
[2023-12-27] MEDS: CLOPIDOGREL BISULFATE 75 MG TABLET PO (11:10)
[2023-12-27] MEDS: FUROSEMIDE 80 MG TABLET PO (11:10)
--- NOTE | 2023-12-27 11:45 | ECG_ITS ---
SEE SCANNED COPY FOR CONFIRMED REPORT MTDD
--- NOTE | 2023-12-27 14:26 | ECG_ITS ---
SEE SCANNED COPY FOR CONFIRMED REPORT MTDD
--- NOTE | 2023-12-27 14:33 | PM.DS ---
DS: Admitting Diagnosis Discharge Date 12/27/2023 Admitting Diagnosis Palpitation DS: Discharge Diagnosis Discharge Diagnosis (1) Atrial fibrillation with rapid ventricular response: Code(s): I48.91 - Unspecified atrial fibrillation Status: Acute (2) Chest pain: Code(s): R07.9 - Chest pain, unspecified Status: Acute (3) Atherosclerotic heart disease of [place] coronary artery without angina pectoris: Code(s): I25.10 - Atherosclerotic heart disease of [place] coronary artery without angina pectoris Status: Acute (4) Elevated troponin: Code(s): R79.89 - Other specified abnormal findings of blood chemistry Status: Acute DS: Summary Hospital Course Hospital Course: This is a 68-year-old female who presents to the ED with complaint of chest pain and palpitation that started last evening.? She stated that her heart was racing in 170s.? There was associated shortness of breath. In the ED was noted heart rate 150s on trach showed atrial fibrillation with rapid response she was given Cardizem bolus and Cardizem drip.? Initial troponin was negative TSH was 5.97.? Hypokalemic mild leukocytosis at 13 K. chest x-ray with mild interstitial edema.? Head CT was done which was negative for any acute intracranial process. Echo was performed during the hospital stay well and was pending by the time of discharge. Follow-up with Cardiology and review the echocardiogram with Cardiology Elevated troponin continue to incline from less than 0.012-0.13 5-0.303. could be related to her afib with rvr. Afib with rvr newly detected.? Was started on Cardizem drip.? Already back to sinus rhythm already.? No prior history of atrial fibrillation noted in the chart/medical record.? Chadsvasc at least 4 will need anticoagulation. Cardiology consulted. Switch to metoprolol succinate and the Xarelto started. Due to triple therapy Plavix has been discontinued per Cardiology recommendations. She will continue to follow-up hospitalist physician at discharge. History of coronary artery disease status post CABG and stent 2006, 2011, 2014 she is planned to get stress test on Tuesday per her regular hospitalist physician.? Already on aspirin and Plavix./stent in 2014 Plavix discontinued as she will be started on Xarelto Hypertension Hyperlipidemia GERD Peripheral neuropathy Gout DVT prophylaxis start Lovenox switched to Xarelto at discharge Time Spent with Patient Time attestation: Total time spent providing and/or coordinating discharge services: 35 minutes Exam Narrative: GENERAL: Well-appearing, well-nourished, and in no acute distress. HEAD: Normocephalic, atraumatic. EYES: PERRLA and EOMI. ENT: Nares clear, no rhinorrhea or epistaxis.? Mucous membranes moist. NECK: Supple. CHEST: Clear to auscultation.? No respiratory distress. HEART:? Regular rate and rhythm.? No murmur heard.? Normal peripheral pulses. ABDOMEN: Soft, nontender, nondistended, normal active bowel sounds. EXTREMITIES: Normal range of motion.? No edema. SKIN: Warm, dry, no rash. NEURO: No focal deficits.? Alert and oriented x3. PSYCH: Normal mood and affect. DS: Data Data Completed and Pending Labs on day of discharge: Labs from last 24 hours 12/27/23 12/27/23 12/27/23 04:06 04:05 03:58 WBC 9.4 RBC 4.11 L Hgb 12.6 Hct 38.2 MCV 92.9 MCH 30.7 MCHC 33.0 RDW 13.0 Plt Count 241 MPV 9.9 Immature Gran % (Auto) 0.4 Neut % (Auto) 57.2 Lymph % (Auto) 32.0 [place] % (Auto) 8.4 Eos % (Auto) 1.5 Baso % (Auto) 0.5 Lymph # (Auto) 2.99 [place] # (Auto) 0.8 H Eos # (Auto) 0.1 Baso # (Auto) 0.1 Abs Immat Gran (auto) 0.04 H Absolute Neuts (auto) 5.3 Absolute Nucleated RBC 0.000 Nucleated RBC % 0.0 PT INR APTT Sodium 140 Potassium 3.3 L Chloride 106 Carbon Dioxide 28 Anion Gap 6 BUN 20 H Creatinine 0.80 Estim Creat Clear Calc 61 Estimated GFR > 60 Glucose
[2023-12-27] MEDS: PERFLUTREN LIPID MICROSPHERES 1.5 ML VIAL DILUTED TO 10 ML TOTAL VOLUME IV PUSH (15:40)
[2023-12-27] MEDS: POTASSIUM CHLORIDE 20 MEQ ER TABLET 40 MEQ PO (16:12)
[2023-12-27] MEDS: RIVAROXABAN 20 MG TABLET PO (16:12)
--- NOTE | 2023-12-27 16:23 | IVDEFINITY ---
Prior to administration of IV Definity the patient was educated on the risks and benefits of the imaging enhancing agent including potential adverse side effects. The patient verbalized understanding. Allergies were verified. No exclusion criteria were identified and at least one of the following inclusion criteria were met: 1) physician request, 2) patient technically difficult to image (per the [place] [employer]chocardi[employer] guidelines of two or more segments not discernable within the apical view), or 3) questionable left ventricular function. ?
== END 2023-12-27 16:49 | disposition home or self-care (01) ==
LOC: ANHED 12-27 00:12 → ANHIMU 12-27 02:38
PROVIDERS: Admitting Provider Internal Medicine; Emergency Provider Emergency Medicine; PCP Family Medicine Adolescent Medicine; Visit Provider Internal Medicine
DX: I48.91 Unspecified atrial fibrillation (principal); R07.9 Chest pain, unspecified; R79.89 Other specified abnormal findings of blood chemistry; I11.9 Hypertensive heart disease without heart failure; I25.10 Atherosclerotic heart disease of native coronary artery without angina pectoris; Z95.1 Presence of aortocoronary bypass graft; Z95.5 Presence of coronary angioplasty implant and graft; K21.9 Gastro-esophageal reflux disease without esophagitis; M10.9 Gout, unspecified; E78.5 Hyperlipidemia, unspecified; Z87.891 Personal history of nicotine dependence; Z79.82 Long term (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 aspirin; Z79.02 Long term (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 antithrombotics/antiplatelets; Z79.899 Other long term (current) drug therapy
CPT/HCPCS: 36415; 70450; 71045; 80053; 83690; 83735; 84443; 84484; 85025; 85610; 85730; 93005; 96365; 96366; 96372; 96375; 99285; A9270; C8929; G0378; J1200; J1650; J7040; Q9957

== ENCOUNTER 2024-03-05 08:33 | Outpatient (CLI) | payer MEDICARE, SELFPAY ==
--- NOTE | 2024-03-05 10:30 | NEURO_ITS ---
Clinical note: Patient has history of paresthesias in both feet and cramps in her legs. She denies any symptoms of pain in the lower back. no history of diabetes mellitus. On a brief neurological examination, no focal muscle weakness or fasciculations were seen. This study is being performed for evaluation of peripheral neurological system. Findings are given below. Summary of findings 1. Left and right sural sensory distal latencies and amplitudes were within acceptable normal limits. 2. Left and right medial plantar sensory were absent. 3. Bilateral peroneal motor distal latency and amplitudes and conduction velocities were within acceptable normal limits. 4. Bilateral tibial motor distal latencies and amplitudes and conduction velocity acceptable normal limits. 5. EMG examination was performed using MModal polar electrode. Various muscles in the distribution of L3-S1 were examined in both lower limbs. Paraspinal muscle examination was not performed since the patient is on anticoagulation. No denervation changes were seen. mild loss of recruitment was noted in both medial gastrocnemius. 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 Clinical correlation is recommended. Follow-up study in 1 2 years should be considered. At this time there is no supportive evidence for L3-S1 radiculopathy. However paraspinal muscles were not examined since the patient is on anticoagulation. If lumbosacral radiculopathy is suspected, radiological studies of the lumbosacral spine may be helpful. Please feel free to call me if you have any questions with regards to study. Rogers Stockton MD, FAAN, FAANEM Neurology and electrodiagnostic Medicine Nerve Conduction Studies Anti Sensory Summary Table Stim Site NR Onset (ms) Peak (ms) P-T Amp (?V) Site1 Site2 Delta-0 (ms) Dist (mm) Michael (m/s) Left Sural Anti Sensory (Lat Mall) Calf 2.8 3.4 10.8 Calf Lat Mall 2.8 120 43 Right Sural Anti Sensory Run #2 (Lat Mall) Calf 2.5 3.2 11.0 Calf Lat Mall 2.5 120 48 Ortho Sensory Summary Table Stim Site NR Onset (ms) Peak (ms) P-T Amp (?V) Site1 Site2 Delta-0 (ms) Dist (mm) Michael (m/s) Left Medial Plantar Ortho Sensory (Med Malleolus) NO RESPONSE Digit 1 NR Digit 1 Med Malleolus 120 Site 2 NR Right Medial Plantar Ortho Sensory (Med Malleolus) NO RESPONSE Digit 1 NR Digit 1 Med Malleolus 100 Motor Summary Table Stim Site NR Onset (ms) O-P Amp (mV) Site1 Site2 Delta-0 (ms) Dist (mm) Michael (m/s) Left Peroneal Motor (Ext Dig Brev) Ankle 4.5 3.0 Ankle Ankle 0.0 80 B Fib 9.8 2.7 Ankle B Fib 5.3 280 53 Popit 11.8 2.6 B Fib Popit 2.0 75 38 Right Peroneal Motor (Ext Dig Brev) Ankle 4.5 2.8 Ankle Ankle 0.0 75 Popit 11.0 2.5 Popit Ankle 6.5 325 50 Left Tibial Motor (Abd Robins Brev) Ankle 3.7 6.6 Ankle Ankle 0.0 80 Knee 12.1 5.2 Ankle Knee 8.4 370 44 Right Tibial Motor (Abd Robins Brev) Ankle 3.8 7.7 Ankle Ankle 0.0 90 Knee 11.7 4.6 Ankle Knee 7.9 370 47 H Reflex Studies NR H-Lat (ms) Max H-Amp (mV) L-R H-Lat (ms) L-R H-Lat Norm M-Lat (ms) M-Amp (mV) H-M Lat (ms) H/M Ratio Left Tibial (Mrkrs) (Gastroc) 32.50 0.91 0.31 <2.0 5.16 13.92 27.34 6.57 Right Tibial (Mrkrs) (Gastroc) 32.19 3.17 0.31 <2.0 4.84 15.57 27.34 20.38 EMG Side Muscle Nerve Ins Act Fibs Psw Amp Dur Recrt Comment Right BicepsFemS Sciatic Nml Nml
== END 2024-03-05 08:34 | disposition home or self-care (01) ==
PROVIDERS: PCP Family Medicine Adolescent Medicine; Visit Provider Psychiatry & Neurology Neurology
DX: E11.9 Type 2 diabetes mellitus without complications (principal); G62.9 Polyneuropathy, unspecified; R94.131 Abnormal electromyogram [EMG]
CPT/HCPCS: 95886; 95910

== ENCOUNTER 2024-04-13 14:54 | Outpatient (CLI) | payer MEDICARE, SELFPAY ==
--- NOTE | ~2024-04-13 | MR_ITS ---
EXAMINATION: MR lumbar spine wo con DATE: 04/13/2024 15:52 INDICATION: Radiculopathy, lumbosacral region. TECHNIQUE: Magnetic resonance imaging (MRI) of the lumbar spine was performed without intravenous con trast. Sequences included sagittal T2-weighted FSE, sagittal T2-weighted FS FSE, sagittal T1-weighted FSE, and axial T2-weighted FSE. COMPARISON: None FINDINGS: Bone alignment is normal. Vertebral body heights are normal. There is mildly decreased disc height at T11-T12, T12-L1, and L3-L4 and severely decreased disc height at L5-S1. The following disc levels are specifically discussed: L1-L2: The disc does not extend beyond the endplate margin. There is mild bilateral facet joint osteo arthritis. There is no neural foraminal stenosis. There is no central canal stenosis. L2-L3: The disc is bulging. There is moderate bilateral facet joint osteoarthritis. There is mild bijan ateral neural foraminal stenosis. There is mild central canal stenosis. L3-L4: The disc is bulging. There is severe right and moderate left facet joint osteoarthritis. There is mild bilateral neural foraminal stenosis. There is mild central canal stenosis. L4-L5: The disc is bulging. There is severe bilateral facet joint osteoarthritis. There is mild bilat eral neural foraminal stenosis. There is no central canal stenosis. L5-S1: The disc is bulging and has an annular fissure. There is severe bilateral facet joint osteoart hritis. There is mild bilateral neural foraminal stenosis. There is mild central canal stenosis. IMPRESSION: 1. Severe lower lumbar spondylosis. Reviewed, dictated and finalized at location A.
== END 2024-04-13 14:55 | disposition home or self-care (01) ==
PROVIDERS: PCP Family Medicine Adolescent Medicine; Visit Provider Psychiatry & Neurology Neurology
DX: G62.9 Polyneuropathy, unspecified (principal); M53.3 Sacrococcygeal disorders, not elsewhere classified; R76.8 Other specified abnormal immunological findings in serum; M47.27 Other spondylosis with radiculopathy, lumbosacral region
CPT/HCPCS: 72148

== ENCOUNTER 2024-06-19 00:33 | Observation (INO) | payer MEDICARE, SELFPAY ==
[2024-06-19] VITALS (20 sets, daily range): BP systolic 91–175; BP diastolic 46–119; PULSE 58–138; RESP 13–20; TEMP 36.3–36.6; O2SAT 92–98; BMI 34.6
--- NOTE | ~2024-06-19 | XR_ITS ---
Portable chest x-ray Comparison: 12/26/2023 Clinical History: Atrial fibrillation Findings: There is probable mild interstitial edema pattern. Cardiomediastinal silhouette is stable , status post CABG. Bones and soft tissues are unremarkable. Impression: Mild interstitial edema pattern. Status post CABG. Reviewed, dictated and finalized at [facility]. Impression: Mild interstitial edema pattern. Status post CABG.
--- NOTE | 2024-06-19 00:39 | ECG_ITS ---
Test Date: 2024-06-19 00:42:29 Measurements Intervals [place] Rate: 129 P: 0 [place]: 0 QRS: 23 QRSD: 90 T: 32 QT: 321 QTc: 471 Interpretive Statements ATRIAL FIBRILLATION WITH RAPID VENTRICULAR RESPONSE NONSPECIFIC ST & T-WAVE ABNORMALITY ABNORMAL RHYTHM ECG No previous ECG available for comparison Electronically Signed On 06-19-2024 12:21:57 CDT by Angelina Ramos M.D.
[2024-06-19 00:51] LABS: Basophils Absolute Auto 0.1 K/mm3 (0.0-0.1); Basophils Percent Auto 0.7 % (0.2-1.2); Eosinophils Absolute Auto 0.2 K/mm3 (0-0.3); Eosinophils Percent Auto 1.5 % (0-4.4); Hemoglobin 13.5 g/dL (12.0-15.0); Immature Granulocyte Absolute 0.04 K/mm3 (0.00-0.031); Immature Granulocyte Percent A 0.4 % (0-0.5); Lymphocytes Absolute Auto 3.49 K/mm3 (0.9-3.2); Lymphocytes Percent Auto 34.6 % (18.3-44.2); Mean Corpuscular HGB Conc 35.5 g/dl (32-36); Mean Corpuscular Hemoglobin 31.5 pg (26-34); Mean Corpuscular Volume 88.6 fl (80-100); Mean Platelet Volume 9.7 fl (7.4-10.4); Monocytes Percent Auto 9.9 % (2.6-8.5); Neutrophils Absolute Auto 5.4 K/mm3 (1.3-6.7); Neutrophils Percent Auto 52.9 % (45.5-73.1); Platelet Count Result 229 k/mm3 (150-375); Red Blood Count 4.29 M/mm3 (4.2-5.4); Red Cell Distribution Width 12.9 % (11.5-14.5); White Blood Count 10.1 K/mm3 (4.5-10.0)
[2024-06-19] MEDS: dilTIAZem HCl INJ 25 MG/5 ML VIAL 20 MG IV PUSH (00:53)
[2024-06-19] MEDS: dilTIAZem 100 MG/100 ML 100 MG/100 ML BAG IV CONT (00:54)
--- NOTE | 2024-06-19 00:59 | ED.ARRPALP ---
HPI - Arrhythmia/Palpitations General Chief Complaint: Arrhythmia/Palpitations Stated Complaint: Im in Afib Time Seen by Provider: 06/19/24 00:44 History of Present Illness HPI narrative: 68-year-old female with a past medical history significant for atrial fibrillation currently rate controlled with Toprol and on Xarelto for anticoagulation. She also has history of hypertension and hyperlipidemia. patient presents to the ED with the sudden onset palpitations sensation and recognition that she is in AFib with RVR. She states that started at 11:45 p.m.. She states she feels short of breath and chest pressure sensation resembling last time she was in AFib. She states she also has a history of coronary bypass but this was done Almost 20 years ago. presently she is awake alert oriented answers all my questions appropriately but is tachycardic in the 140s to 160s. AFib on the monitor. Denies any nausea, vomiting, back pain, neck pain, fever, chills, abdominal pain. Was otherwise in her normal state of health. Related Data Home Medications Medication Instructions Recorded Confirmed aspirin 81 mg tablet 81 mg PO HS 05/05/21 06/01/24 furosemide 80 mg tablet 80 mg PO DAILY 05/05/21 06/01/24 irbesartan 75 mg tablet 75 mg PO HS 05/05/21 06/01/24 atorvastatin 20 mg tablet 20 mg PO HS 03/17/22 06/01/24 ezetimibe 10 mg tablet 10 mg PO HS 03/17/22 06/01/24 Fish Oil 1 cap PO QAM 07/08/22 06/01/24 Allergies Allergy/AdvReac Type Severity Reaction Status Date / Time acetylcysteine Allergy Severe Other Verified 06/01/24 09:51 ciprofloxacin Allergy Severe Rash Verified 06/01/24 09:51 celecoxib Allergy Intermediate rash Verified 06/01/24 09:51 lisinopril Allergy Intermediate cough Verified 06/01/24 09:51 duloxetine AdvReac Unknown Rash Verified 06/01/24 09:51 adhesive tape Allergy Intermediate Blister Uncoded 06/01/24 09:51 Review of Systems Review of Systems: As reviewed above in HPI [facility] Past Medical History Medical History Acute medial meniscus tear of left knee VALENTIN positive Encounter for screening colonoscopy 05/26 Repeat 05/31 Essential (primary) hypertension GERD (gastroesophageal reflux disease) Gout History of kidney stones Hyperglycemia Hypokalemia Left hip pain Left knee pain Lumbosacral radiculopathy at S1 Mixed hyperlipidemia Peripheral neuropathy Sacroiliac joint dysfunction of left side Surgical History Surgical History History of colonoscopy History of coronary artery stent placement x3 (2006, 2011, 2014) History of endoscopy History of medial meniscus repair of left knee (~07/16/22) History of tubal ligation Hx of CABG 2006 Hx of carpal tunnel repair Rt trigger finger (thumb) Hx of plastic surgery facial reconstruction Family History Family History Father Diabetes mellitus Hypertension Mother Hypertension Spinal stenosis Unknown Heart disease Social History Social History Smoking packs per day: 1 Smoking cigarettes per day: 20.0 Years smoked: 50 Smoking pack-years: 50.00 Smoking status: Former smoker Tobacco type: cigarettes Second hand tobacco smoke exposure: No Alcohol intake: never Substance use: never Substance use type: does not use Do You Feel Safe in your Home?: Yes Lack of Transportation: No Lack of Food: Never True Current Housing: I Have Housing Concerned About Future Housing: No Difficulty Paying Gas/Electric Bills: No Difficulty Paying for Meds: No Currently Unemployed: No Education: High School Diploma/GED Difficulty w/ Childcare or Family Care: No Living arrangements: with family Occupation/Education: retired Gender identity (if verbalized by the patient): Female Sexual Danny
[2024-06-19 01:02] LABS: Alanine Aminotransferase 27 U/L (6-35); Albumin Level 4.5 g/dL (3.5-5.1); Alkaline Phosphatase 129 U/L (38-126); Anion Gap 11 mmol/L (4-12); Aspartate Amino Transferase 34 U/L (14-36); Bilirubin,Total 0.8 mg/dL (0.2-1.3); Blood Urea Nitrogen 29 mg/dL (7-17); Calcium 9.7 mg/dL (8.4-10.2); Carbon Dioxide 27 mmol/L (22-30); Chloride 102 mmol/L (98-107); Estimated CRCL calculation 45 ml/min; Estimated Glomerular Filt Rate 49; Glucose 130 mg/dL (65-110); Lipase 213 U/L (23-300); Potassium 3.7 mmol/L (3.4-5.0); Sodium 140 mmol/L (137-145)
--- NOTE | 2024-06-19 01:11 | ECG_ITS ---
Test Date: 2024-06-19 01:43:33 Measurements Intervals [place] Rate: 86 P: 0 [place]: 0 QRS: 14 QRSD: 93 T: 47 QT: 381 QTc: 457 Interpretive Statements ATRIAL FIBRILLATION NONSPECIFIC ST & T-WAVE ABNORMALITY Compared to ECG 06/19/2024 00:42:29 RVR NO LONGER PRESENT Electronically Signed On 06-19-2024 12:22:53 CDT by Angelina Ramos M.D.
[2024-06-19 01:14] LABS: Troponin I < 0.012 ng/mL (0.000-0.034)
[2024-06-19 01:27] LABS: INR 3.1; Prothrombin Time 32.1 Seconds (11.1-14.7)
[2024-06-19 01:28] LABS: D Dimer < 0.27 ug/mL (<0.48); Partial Thromboplastin Time 77.9 Seconds (22.3-36.8)
[2024-06-19] MEDS: SODIUM CHLORIDE 0.9% IV 1,000 ML 999 ML IV CONT (03:13)
--- NOTE | 2024-06-19 03:40 | ECG_ITS ---
Test Date: 2024-06-19 03:56:26 Measurements Intervals [place] Rate: 78 P: 0 [place]: 0 QRS: 21 QRSD: 101 T: 40 QT: 398 QTc: 453 Interpretive Statements ATRIAL FIBRILLATION NONSPECIFIC ST & T-WAVE ABNORMALITY Compared to ECG 06/19/2024 01:43:33 No significant changes Electronically Signed On 06-19-2024 12:24:03 CDT by Angelina Ramos M.D.
[2024-06-19 04:14] LABS: Troponin I 0.014 ng/mL (0.000-0.034)
--- NOTE | 2024-06-19 04:39 | ADMGEN ---
This patient, Mercy Mirza, was admitted to IMU Room 206-01. Patient/family oriented to hospital policies and general routines including ID bracelet, bed and alarms, visiting hours, pain management, procedures, bathroom and other care routines, personal items, smoking policy, room service/diet, and visiting hours. Information on how to activate the Rapid Response Team has been discussed. Patient/Family are encouraged to report perceived risks to care and to ask questions if they do not understand what they are told or what they should do.
--- NOTE | 2024-06-19 05:21 | PM.IMHP ---
H&P: HPI History of Present Illness Date/Time: 06/19/24 05:21 Chief Complaint: ?I went into AFib? Narrative: 68-year-old female with a past medical history coronary artery disease status post 2 vessel CABG 2005, multiple cardiac stent placements, hyperlipidemia, essential hypertension and diastolic dysfunction who presented to the ER after recognizing symptoms of AFib with RVR. Patient was diagnosed with new onset AFib in December. She reports that she has had a couple of episodes of AFib a picked up on her Fitbit since that prior hospitalization but nothing that made her particularly symptomatic. Then just before midnight the patient began having palpitations and sensation of chest pressure which was similar to her prior episode of AFib RVR. Her symptoms occurred while she was sitting watching TV. She reports that on baseline she does not have dyspnea on exertion orthopnea or paroxysmal nocturnal dyspnea. She has not missed any of her home medications. She has not had consumption of excessive caffeine/stimulants. She states that she went to her primary care physician a couple weeks ago and voiced frustration of her urinary frequency. At that time she is given instructions to decrease her home Lasix from 80 mg a day down to 40. So she is now only taking 80 mg if she has leg swelling or increased weight. A few days ago she did notice some swelling of her feet so she did take a full 80 mg dose. But since that time she has decreased her Lasix back down to 40 mg a day. Review of Systems Review of Systems: 12 systems were reviewed with pertinent positives and negatives per HPI. Except as documented in the HPI, all other systems were reviewed and are negative. [facility] Past Medical History Medical History (Updated 06/20/24 @ 01:15 by Cindi Segura DO) VALENTIN positive Chronic anticoagulation On Xarelto and 81 mg aspirin Encounter for screening colonoscopy 05/26 Repeat 05/31 Essential (primary) hypertension GERD (gastroesophageal reflux disease) Gout History of kidney stones Hyperglycemia Hypokalemia Left hip pain Left knee pain Lumbosacral radiculopathy at S1 Mixed hyperlipidemia Paroxysmal atrial fibrillation New onset December 2023 Peripheral neuropathy Sacroiliac joint dysfunction of left side Seborrheic keratosis Vasomotor rhinitis Surgical History Surgical History (Updated 06/19/24 @ 05:33 by Cindi Segura DO) History of colonoscopy History of coronary artery stent placement x3 (2006, 2011, 2014) History of endoscopy History of medial meniscus repair of left knee (~07/16/22) History of tubal ligation Hx of CABG Two vessel CABG 2006 Hx of carpal tunnel repair Rt trigger finger (thumb) Hx of plastic surgery facial reconstruction Family History Family History Father Diabetes mellitus Hypertension Mother Hypertension Spinal stenosis Unknown Heart disease Social History Social History (Updated 06/19/24 @ 05:35 by Cindi Segura DO) Social History: Code status: Full code Healthcare power of [place] attorney: Joey Mirza () Smoking packs per day: 1 Smoking cigarettes per day: 20.0 Years smoked: 50 Smoking pack-years: 50.00 Smoking status: Former smoker Second hand tobacco smoke exposure: No Alcohol intake: never Substance use: never Substance use type: does not use Do You Feel Safe in your Home?: Yes Lack of Transportation: No Lack of Food: Never True Current Housing: I Have Housing Concerned About Future Housing: No Difficulty Paying Gas/Electric Bills: No Difficulty Paying for Meds: No Currently Unemployed: No Education: High School Diploma/GED Difficulty w/ Childcare or Family Care: No Living arrangements: with family Occupation/Education: retired Gender identity (if verbalized by the patient): Female Sexual Orientation (if Verbalized by the Patient): Straight or Heterosexu
[2024-06-19 07:36] LABS: Anion Gap 10 mmol/L (4-12); Blood Urea Nitrogen 23 mg/dL (7-17); Calcium 8.9 mg/dL (8.4-10.2); Carbon Dioxide 23 mmol/L (22-30); Chloride 107 mmol/L (98-107); Estimated CRCL calculation 59 ml/min; Estimated Glomerular Filt Rate > 60; Glucose 115 mg/dL (65-110); Potassium 3.7 mmol/L (3.4-5.0); Sodium 140 mmol/L (137-145); Troponin I 0.024 ng/mL (0.000-0.034)
--- NOTE | 2024-06-19 08:31 | ECG_ITS ---
Test Date: 2024-06-19 09:06:52 Measurements Intervals [place] Rate: 64 P: 50 TX: 153 QRS: 25 QRSD: 94 T: 60 QT: 423 QTc: 438 Interpretive Statements SINUS RHYTHM POSSIBLE LEFT ATRIAL ENLARGEMENT [-0.1mV P WAVE IN V1/V2] NONSPECIFIC ST & T-WAVE ABNORMALITY Compared to ECG 06/19/2024 03:56:26 Atrial fibrillation no longer present Electronically Signed On 06-19-2024 12:40:42 CDT by Angelina Ramos M.D.
[2024-06-19] MEDS: IPRATROPIUM NASAL SPRAY 0.06% 15 ML BOTTLE 2 SPRAY NASAL (09:35)
[2024-06-19] MEDS: METOPROLOL SUCCINATE EXT REL 25 MG TABCR 75 MG PO (09:35)
[2024-06-19] MEDS: POTASSIUM CHLORIDE 20 MEQ ER TABLET PO (09:35)
[2024-06-19] MEDS: OMEGA 3 POLYUNSAT FATTY ACIDS 1 GM CAP PO (09:36)
[2024-06-19] MEDS: FUROSEMIDE 40 MG TABLET PO (09:36)
--- NOTE | 2024-06-19 15:34 | PM.DS ---
DS: Admitting Diagnosis Discharge Date 06/19/24 Admitting Diagnosis Palpitations DS: Discharge Diagnosis Discharge Diagnosis (1) Atrial fibrillation with rapid ventricular response: Code(s): I48.91 - Unspecified atrial fibrillation Status: Acute (2) Chronic anticoagulation: Code(s): Z79.01 - group home (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 Status: Acute (3) Hypertension: Qualifiers: Hypertension type: primary hypertension Qualified Code(s): I10 - Essential (primary) hypertension Code(s): I10 - Essential (primary) hypertension Status: Acute DS: Summary Hospital Course Reason for hospitalization: 68yo male with CAD, HTN, HLD and AFib who presents after feeling like she was back in AFib. Please see H&P for details. Hospital Course: Patient presented to the ED and found to have AFib with RVR. Patient is on metoprolol and Xarelto at home and has not missed any doses. In the ER she was given a bolus of Cardizem and placed on a Cardizem drip. Her heart rate improved but AFib persists. She was admitted to the IMU. Patient's blood pressures was soft so we discontinued Cardizem drip and resumed patient's home beta-susan. Patient did convert about an hour later and has maintained normal sinus rhythm since. Patient's primary oracle data warehouse developer is not at our facility but she wants to follow up with the Cardiologists here. Patient did have mildly elevated BUN and creatinine from baseline. Her Lasix was cut back to 40mg daily recently. She has noticed some swelling of her ankles and feet a couple of days ago and took a dose of 80 mg with improvement. She has since went back down to 40 mg a day. Patient was given 1 L of IV fluids with improvement in her renal function. She overall did well and was able to be discharged home on 06/19/24. Status at Discharge Cognitive/behavioral status at discharge: stable Time Spent with Patient Time attestation: Total time spent providing and/or coordinating discharge services: 35 minutes Time spent: Greater than 30 minutes Exam Narrative: AF 97.7 109/63 61 18 97% ra Gen - NARD Chest - CTA bilaterally, nml RR CV - RRR S1/S2. tele showing normal sinus Abd - Soft, NT/ND, Positive BS Ext - No pedal edema Psych - Nml mood and affect Skin - Warm and dry DS: Data Data Completed and Pending Labs on day of discharge: Labs from last 24 hours 06/19/24 06/19/24 06/19/24 06:40 06:40 06:40 WBC RBC Hgb Hct MCV MCH MCHC RDW Plt Count MPV Immature Gran % (Auto) Neut % (Auto) Lymph % (Auto) [place] % (Auto) Eos % (Auto) Baso % (Auto) Lymph # (Auto) [place] # (Auto) Eos # (Auto) Baso # (Auto) Abs Immat Gran (auto) Absolute Neuts (auto) Absolute Nucleated RBC Nucleated RBC % PT INR APTT D-Dimer Sodium Potassium Chloride Carbon Dioxide Anion Gap BUN Creatinine Estim Creat Clear Calc Estimated GFR Cancelled Glucose Cancelled 115 H Calcium Cancelled 8.9 Total Bilirubin AST ALT Alkaline Phosphatase Troponin I 0.024 D Total Protein Albumin Lipase 06/19/24 06/19/24 06/19/24 06:40 06:40 06:40 WBC RBC Hgb Hct MCV MCH MCHC RDW Plt Count MPV Immature Gran % (Auto) Neut % (Auto) Lymph % (Auto) [place] % (Auto) Eos % (Auto) Baso % (Auto) Lymph # (Auto) [place] # (Auto) Eos # (Auto) Baso # (Auto) Abs Immat Gran (auto) Absolute Neuts (auto) Absolute Nucleated RBC Nucleated RBC % PT INR APTT D-Dimer Sodium Potassium Chloride Carbon Dioxide Anion Gap BUN Cancelled Creatinine Cancelled 0.80 Estim Creat Clear Calc Cancelled 59 Estimated GFR > 60 Glucose Calcium Total Bilirubin AST ALT Alkaline Phosphatase Troponin I Total Protein Al
== END 2024-06-19 16:15 | disposition home or self-care (01) ==
LOC: ANHED 03:08 → ANHIMU 04:16
PROVIDERS: Admitting Provider Internal Medicine; Emergency Provider Student in an Organized Health Care Education/Training Program; PCP Family Medicine Adolescent Medicine; Visit Provider Internal Medicine
DX: I48.0 Paroxysmal atrial fibrillation (principal); Z79.01 Long term (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; I10 Essential (primary) hypertension; R06.83 Snoring; E78.2 Mixed hyperlipidemia; I25.10 Atherosclerotic heart disease of native coronary artery without angina pectoris; Z95.1 Presence of aortocoronary bypass graft; Z95.5 Presence of coronary angioplasty implant and graft; Z87.891 Personal history of nicotine dependence
CPT/HCPCS: 36415; 71045; 80048; 80053; 83690; 84484; 85025; 85380; 85610; 85730; 93005; 96365; 96366; 99285; A9270; G0378; J7030

== ENCOUNTER 2024-10-12 14:45 | Outpatient (CLI) | payer MEDICARE, SELFPAY ==
--- NOTE | ~2024-10-12 | MM_ITS ---
EXAMINATION: MM screening mayito BI w cat HISTORY: Screening TECHNIQUE: Craniocaudal and mediolateral oblique 3-D tomosynthesis images were obtained and synthetic 2-D images were generated. CAD analysis was submitted and interpreted. COMPARISON: Comparison to multiple prior studies sequentially, with oldest reviewed study dated 08/06. BREAST PARENCHYMAL COMPOSITION: Not dense: There are scattered areas of fibroglandular density. FINDINGS: There is no evidence of suspicious mass, calcification, or architectural distortion to sugg est malignancy in either breast. There has been no suspicious interval change. IMPRESSION: 1. No mammographic evidence of malignancy. 2. Recommend routine screening mammography in one year. BI-RADS Category 1: Negative Reviewed, dictated and finalized at location [] IED COMMUNICATIONS ENGINEER
== END 2024-10-12 14:46 | disposition home or self-care (01) ==
LOC: MICIMG 14:46
PROVIDERS: PCP Family Medicine Adolescent Medicine; Visit Provider Family Medicine Adolescent Medicine
DX: Z12.31 Encounter for screening mammogram for malignant neoplasm of breast (principal)
CPT/HCPCS: 77063; 77067

== ENCOUNTER 2025-06-19 15:18 | Outpatient (CLI) | payer MEDICARE, SELFPAY ==
--- OUTSIDE RECORDS SUMMARY | 2025-06-18 09:20 | XMS_ITS | Encounter Summary ---
Author Organization [facility] Healthcare Address [address] [place] [address] Care Team Providers Care Intake Assessor Name Role Phone Bert Glez MD Primary Care Prov ider Reji Godinez MD Unavailable [phone] Farooq Hitchcock MD Unavailable [phone] Encounter Details Date Type Department Care Team (Late st Contact Info) Description 06/18/2025 9:20 AM CDT Lab [address] [address] Blood glucose elevated (Primary Dx); Essential hypertension, malignant; Paroxysmal atrial fibrillation (HCC); MCC (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; Impaired fasting glucose Social History Tobacco Use Types Packs/Day Years Used Date Smoking Tobacco: Former Smokeless Tobacco: Never Comments:Smoking History Pac ks/day: 0.5 Packs Alcohol Use Standard Drinks/Week Comments Not Currently 0 (1 standard drink = 0.6 oz pur e alcohol) PHQ-2 Answer Date Recorded PHQ-2 Total Score (If total score is 3 or more points, staff should administer the PHQ-9) 0 04/23/2025 PHQ-9 Answer Date Recorded PHQ-9 Total Score 0 04/23/2025 AUDIT-C Answer Date Recorded Q1: How often do you have a drink containing alcohol? Never 04/23/2025 Q2: How many drinks containi ng alcohol do you have on a typical day when you are drinking? Patient does not drink 08/19/202 5 Q3: How often do you have si x or more drinks on one occasion? Never 04/23/2025 Personal Safety Answer Date Recorded Have you ever been in or are you currently in a harmful physical or emotional relationship or is someone making you feel afraid or unsafe? 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 Gender Identity Not on file Sexual Orientation Not on file Occupation Industry Job Start Date Job End Date retired Not on file Not on file Not on file documented as of this encounter Plan of Treatment Not on file documented as of this encounter Procedures Procedure Name Priority Date/Time Associated Diagnosis Comments EGFR Routine 06/18/2025 9:28 AM CDT Blood glucose elevated Essential hypertension, malignant Paroxysmal atrial fibrillation (HCC) emt intermediate (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 Impaired fasting glucose CBC WITHOUT DIFFERENTIAL Routine 06/18/2025 9:28 AM CDT Blood glucose elevated Essential hypertension, malignant Paroxysmal atrial fibrillation (HCC) emt intermediate (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 Impaired fasting glucose HEMOGLOBIN A1C Routine 06/18/2025 9:28 AM CDT Blood glucose elevated Essential hypertension, malignant Paroxysmal atrial fibrillation (HCC) emt intermediate (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 Impaired fasting glucose LIPID PANEL Routine 06/18/2025 9:28 AM CDT Blood glucose elevated Essential hypertension, malignant Paroxysmal atrial fibrillation (HCC) emt intermediate (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 Impaired fasting glucose COMPREHENSIVE METABOLIC PANEL Routine 06/18/2025 9:28 AM CDT Blood glucose elevated Essential hypertension, malignant Paroxysmal atrial fibrillation (HCC) MCC (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 Impaired fasting glucose documented in this encounter Results * eGFR (06/18/2025 9:28 AM CDT) eGFR 72 >=60 mL/min/1. 73 m2 Comment: Interpretive Data Reference Interval Normal >/= 90 mL/min/1.73m2 Mildly decreased* 60 - 89 mL/min/1.73m2 Mildly to moderately decreased 45 - 59 mL/min/1.73m2 Moderately to severely decreased 30 - 44 mL/min/1.73m2 Severely decreased 15 - 29 mL/min/1.73m2 Kidney Failure < 15 mL/min/1.73m2 *Relative to young adult level Estimated glomerular filtration rate is determined by the 2020 CKD-EPI equation recommended by the National Kidney Foundation (A Unifying Approach to GFR Estimation: Recommendations of the NKF-ASK Task Force on Reassessing the Inclusion of Race in Diagnosing Kidney Disease, JASN 2020). The CKD-EPI equation should not be used for patients with unstable renal function and has not been validated in children and those over 70. Current interpretive data was last reviewed 2021. Blood 06/18/2025 9:28 AM CDT 06/18/2025 11:18 AM CDT us Bert Glez MD LAB BLOOD ORDERABL ES Final Result [place] [id number] [facility] [place] [address] * CBC without differential (06/18/2025 9:28 AM CDT) WBC 8.96 3.80 - 9.90 K/cumm Hgb 13.6 11.9 - 15.5 g/dL [facility] Hct 40.4 35.6 - 45.5 % [facility] Plt 209 150 - 400 K/cumm [facility] MPV 9.6 9.1 - 12.3 fL [facility] RBC 4.40 3.90 - 5.20 M/cumm [facility] MCV 91.8 81.3 - 96.4 fL [facility] MCH 30.9 27.1 - 33.3 pg [facility] MCHC 33.7 32.3 - 35.7 g/dL [facility] RDW CV 13.0 11.1 - 14.9 % [facility] RDW SD 43.6 35.7 - 48.1 fL [facility] NRBC abs 0.00 0.00 - 0.01 K/cumm [facility] Blood Venous blood specimen / Unknown 06/18/2025 9:28 AM CDT 06/18/2025 11:18 AM CDT us Bert Glez MD LAB BLOOD ORDERABL ES Final Result [facility] [address] [facility] [place] [address] * (ABNORMAL) Lipid panel (06/18/2025 9:28 AM CDT) Cholesterol 103 30 - 199 mg/dL Comment: Interpretive Data Ages < or = 19 years Acceptable: <170 mg/dL Borderline high: 170-199 mg/dL High: >or= 200 mg/dL Ages > or = 20 years Desirable: <200 mg/dL Borderline high: 200-239 mg/dL High: >or= 240 mg/dL Literature References: 1. Expert Panel on Integrated Guidelines for Cardiovascular Health and Risk Reduction in Children and Adolescents. Pediatrics 2011;128:S213 2. NCEP Expert Panel. Circulation 2004;110:227 Current Interpretive Data was last revised on 2018. Triglycerides 135 <=149 mg/dL [facility] Comment: Interpretive Data Ages < or = 9 years Acceptable: <75 mg/dL Borderline high: 75-99 mg/dL High: >or= 100 mg/dL Ages 10 to 20 years Acceptable: <90 mg/dL Borderline high: 90-129 mg/dL High: >or= 130 mg/dL Ages > or = 20 years Desirable: <150 mg/dL Borderline high: 150-199 mg/dL High: 200-499 mg/dL Very high: >or= 499 mg/dL Literature References: 1. Expert Panel on Integrated Guidelines for Cardiovascular Health and Risk Reduction in Children and Adolescents. Pediatrics 2011;128:S213 2. NCEP Expert Panel. Circulation 2004;110:227 Current Interpretive Data was last revised on 2018. HDL 38(L) >=40 mg/dL [facility] Comment: Interpretive Data Ages < or = 19 years Acceptable: >45 mg/dL Borderline low: 40-45 mg/dL Low: <40 mg/dL Ages > or = 20 years Desirable: >or= 60 mg/dL Low: <40 mg/dL Literature References: 1. Expert Panel on Integrated Guidelines for Cardiovascular Health and Risk Reduction in Children and Adolescents. Pediatrics 2011;128:S213 2. NCEP Expert Panel. Circulation 2004;110:227 Current Interpretive Data was last revised on 2018. LDL, calculated 41 <=129 mg/dL [facility] Comment: Interpretive Data Ages < or = 19 years Acceptable: <110 mg/dL Borderline high: 110-129 mg/dL High: >or= 130 mg/dL Ages > or = 20 years Optimal: <100 mg/dL Near optimal: 100-129 mg/dL Borderline high: 130-159 mg/dL High: >160 mg/dL Calculated using the Mike LDL-C estimating equation. This equation was implemented on 2024. Prior to this date LDL-C was estimated using the Friedewald equation. Literature References: 1. Expert Panel on Integrated Guidelines for Cardiovascular Health and Risk Reduction in Children and Adolescents. Pediatrics 2011;128:S213 2. NCEP Expert Panel. Circulation 2004;110:227 3. Mike Alexander et al. FINN Cardiol. 2019January 03;5(5):540-548. doi: 10.1001/[email or web address].2020.0013 Current Interpretive Data was last revised on 2024. Non-HDL Cholesterol 65 mg/dL [facility] Comment: Interpretive Data Ages < or = 19 years Acceptable: <120 mg/dL Borderline high: 120-144 mg/dL High: >145 mg/dL Ages > or = 20 years When triglycerides are >200 mg/dL, Non-HDL cholesterol is a secondary target of therapy with treatment goals that are 30 mg/dL greater than the LDL cholesterol target. Literature References: 1. Expert Panel on Integrated Guidelines for Cardiovascular Health and Risk Reduction in Children and Adolescents. Pediatrics 2011;128:S213 2. NCEP Expert Panel. Circulation 2004;110:227 Current Interpretive Data was last revised on 2018. Chol/HDL ratio 3 [facility] Blood Venous blood specimen / Unknown 06/18/2025 9:28 AM CDT 06/18/2025 11:18 AM CDT us Bert Glze MD LAB BLOOD ORDERABL ES Final Result [place] [place] [address] [facility] Department of Laboratories [place] [id number] * Comprehensive metabolic panel (06/18/2025 9:28 AM CDT) Sodium 141 135 - 145 mmol/L Potassium, pl 4.1 3.3 - 4.9 mmol/L [facility] Chloride 108 97 - 110 mmol/L [facility] CO2 25 22 - 32 mmol/L [facility] Anion gap 8 2 - 15 mmol/L [facility] BUN 12 6 - 25 mg/dL [facility] Creatinine 0.87 0.60 - 1.10 mg/dL [facility] Glucose 109 70 - 199 mg/dL [facility] Comment: Interpretive Data Fasting glucose >/= 126 mg/dl is diagnostic for diabetes. Fasting is defined as no caloric intake for at least 8 hours. Fasting glucose between 100 mg/dl to 125 mg/dl is diagnostic of prediabetes. In a patient with classic symptoms of hyperglycemia or hyperglycemic crisis, a random glucose >/= 200 mg/dl is diagnostic for diabetes. In the absence of unequivocal hyperglycemia, results should be confirmed by repeat testing. The classification and Diagnosis of Diabetes Diabetes Care 2021; 46: S19-S40. Current interpretive data was last revised 2022. Calcium 9.8 8.5 - 10.3 mg/dL [facility] Bilirubin, total 0.7 0.1 - 1.2 mg/dL [facility] Protein, pl 7.3 6.5 - 8.5 g/dL [facility] Albumin 4.3 3.5 - 5.0 g/dL [facility] Alk phos 124 40 - 130 Units/L [facility] ALT 16 7 - 45 Units/L [facility] AST 20 10 - 45 Units/L [facility] Blood Venous blood specimen / Unknown 06/18/2025 9:28 AM CDT 06/18/2025 11:18 AM CDT us Bert Glez MD LAB BLOOD ORDERABL ES Final Result [place] [address] [facility] Department [place] [address] * Hemoglobin A1c (06/18/2025 9:28 AM CDT) Hgb A1C 5.5 4.0 - 5.6 % Estimated Average Glucose 111 mg/dL [facility] Comment: The ADA recommends reporting an estimated Average Glucose (eAG) with all Hemoglobin A1c results using the equation derived from a study of 507 normal and diabetic adults. Minority populations were underrepresented and children were not included. (Diabetes Care 31:4351-7607, 2008). The eAG is not equivalent to a fasting glucose. Blood Venous blood specimen / Unknown 06/18/2025 9:28 AM CDT 06/18/2025 11:18 AM CDT us Bert Glez MD LAB BLOOD ORDERABL ES Final Result [place] [address] [facility] Department [place] [address] documented in this encounter Visit Diagnoses Diagnosis Blood glucose elevated- Primary Other abnormal glucose Essential hypertension, malignant Paroxysmal atrial fibrillation (HCC) Atrial fibrillation emt intermediate (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 Long-term (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 Impaired fasting glucose documented in this encounter Care Teams Intake Assessor Relationship Specialty Start Date End Date Bert Glez MD PCP - General 04/09/13 Reji Godinez MD [address] [place] [address] [address] Boat Motor Mechanic Cardiology 04/26/19 Farooq Hitchcock MD [address] [address] Consulting Physician Clinical Cardiac Electrophysiology 11/15/24 documented as of this encounter
--- NOTE | ~2025-06-19 | CT_ITS ---
EXAMINATION: CT abdomen pelvis wo con DATE: 06/19/2025 15:52 INDICATION: Abdominal pain TECHNIQUE: Computed tomography (CT) of the abdomen and pelvis was performed without intravenous contrast. Automated exposure control and iterative reconstruction technique were employed. The dose-length product was 701.86 mGy-cm. COMPARISON: 07/28/2022 FINDINGS: Mild emphysema. Heart size is normal. Atherosclerotic coronary artery calcifications with change of median sternotomy and coronary artery bypass grafting and possible coronary artery stenting. No pericardial or pleural effusion. Liver, gallbladder, spleen, pancreas, left kidney and bilateral adrenal glands are normal. 3 mm nonobstructing right renal stone. Mild scattered colonic diverticulosis with inflammatory stranding along the proximal sigmoid colon consistent with diverticulitis. Small bowel and appendix are normal with mild long calcific density likely ingested pill within the distal small bowel. Bladder, uterus and bilateral adnexa are unremarkable. No abscess or free intraperitoneal gas or fluid. Severe degenerative disc disease at L5-S1. Mild lumbar and lower thoracic spondylosis. 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 IMPRESSION: 1. Radiographically uncomplicated sigmoid diverticulitis. 2. Nonobstructing 3 mm right renal stone. Reviewed, dictated and finalized at location A.
--- OUTSIDE RECORDS SUMMARY | 2025-06-19 11:34 | XMS_ITS | Encounter Summary ---
Author Organization [facility] Healthcare Address [address] [place] [address] Care Team Providers Care Diesel Mechanic Farm Name Role Phone Bert Glez MD Primary Care Prov ider Reji Godinez MD Unavailable [phone] Farooq Hitchcock MD Unavailable [phone] Encounter Details Date Type Department Care Team (Late st Contact Info) Description 06/19/2025 11:34 AM CDT Hospital Encounter [facility] [address] [place] [address] Pelvic pain Social History Tobacco Use Types Packs/Day Years [...] you are drinking? 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 Gender Identity Not on file Sexual Orientation Not on file Occupation Industry Job Start Date Job End Date retired Not on file Not on file Not on file documented as of this encounter Plan of Treatment Pending Results Name Type Priority Associated Diagnoses Date /Time Urine culture Urine, clean voided Microbiology Routine Pelvic pain 06/19/2025 10:00 AM CDT Scheduled Orders Name Type Priority Associated Diagnoses Orde r Schedule Urine culture Urine, clean voided Microbiology Routine Pelvic pain Once for 1 Occurrences starting 06/19/2025 until 06/19/2025 documented as of this encounter Visit Diagnoses Diagnosis Pelvic pain documented in this encounter Care Teams Diesel Mechanic Farm Relationship Specialty Start Date End Date Bert Glez MD PCP - General 04/09/13 Reji Godinez MD [address] [facility] [address] [place] [address] [address] Permastone Mechanic Cardiology 04/26/19 Farooq Hitchcock MD [address] [address] Consulting Physician Clinical Cardiac Electrophysiology 11/15/24 documented as of this encounter
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
--- OUTSIDE RECORDS SUMMARY | 2025-06-19 17:24 | XMS_ITS | Encounter Summary ---
Author Organization [facility] Facility Care Team Providers Care Teletype Mechanic Name Role Phone Bert Glez MD Primary Care Prov ider Reji Godinez MD Unavailable [phone] Farooq Hitchcock MD Unavailable Encounter Details Date Type Department Care Team (Latest Contact Info) Description 09/16/2017 Orders Only [facility] ProviderAlexandru MD [address] [place] [id number] Social History Tobacco Use Types Packs/Day Years Used Date Smoking Tobacco: Every Day Comments:Smoking History Pac ks/day: 0.5 Packs Alcohol Use Standard Drinks/Week Comments Yes 0 (1 standard drink = 0.6 oz pur e alcohol) Comments Unknown Sex and Gender Information Value Date Recorded Sex Assigned at Not on file 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 Historical Provider Final Res ult documented in this encounter Visit Diagnoses Not on filedocumented in this encounter Care Teams Teletype Mechanic Relationship Specialty Start Date End Date Bert Glez MD PCP - General 04/09/13 Reji Godinez MD [address] [facility] [address] [address] [address] Shipyard Painter Apprentice Cardiology 04/26/19 Farooq Hitchcock MD [address] [address] Consulting Physician Clinical Cardiac Electrophysiology 11/15/24 documented as of this encounter
--- OUTSIDE RECORDS SUMMARY | 2025-06-19 17:24 | XMS_ITS | Encounter Summary ---
Author Organization [facility] Healthcare Address [address] [place] [address] Care Team Providers Care Occupational Therapist Rehab Manager Name Role Phone Bert Glez MD Primary Care Prov ider Reji Godinez MD Unavailable Farooq Hitchcock MD Unavailable [phone] Encounter Details Date Type Department Care Team (Late st Contact Info) Description 06/19/2024 Orders Only [facility] [address] [place] [id number] Scanning, Provider Social History Tobacco Use Types Packs/Day Years Used Date Smoking Tobacco: Former Smokeless Tobacco: Never Comments:Smoking History Pac ks/day: 0.5 Packs Alcohol Use Standard Drinks/Week Comments Yes 0 (1 standard drink = 0.6 oz pur e alcohol) Comments No Sex and Gender Information Value Date Recorded Sex Assigned at Not on file 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 Gender Identity Not on file Sexual Orientation Not on file documented as of this encounter Plan of Treatment Not on file documented as of this encounter Procedures Procedure Name Priority Date/Time Associated Diagnosis Comments SCAN - RADIOLOGY/IMAGING 06/19/2024 documented in this encounter Results * SCAN - RADIOLOGY/IMAGING (06/19/2024) Anatomical Region Laterality Modality Other us Provider Scanning Final Result documented in this encounter Visit Diagnoses Not on filedocumented in this encounter Care Teams Occupational Therapist Rehab Manager Relationship Specialty Start Date End Date Bert Glez MD PCP - General 04/09/13 Reji Godinez MD [address] [facility] [address] [place] [address] [address] Supervisor Phosphorus Processing Cardiology 04/26/19 Farooq Hitchcock MD [address] [address] Consulting Physician Clinical Cardiac Electrophysiology 11/15/24 documented as of this encounter
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
--- OUTSIDE RECORDS SUMMARY | 2025-06-19 17:25 | XMS_ITS | Encounter Summary ---
Author Organization [facility] Care Team Providers Care Clinical Systems Educator Name Role Phone Bert Glez MD Primary Care Prov ider Reji Godinez MD Unavailable [phone] Farooq Hitchcock MD Unavailable Encounter Details Date Type Department Care Team (Latest Contact Info) Description 12/09/2015 Orders Only [facility] CLINCONV Provider, MD Alexandru [address] [place] [id number] Social History Tobacco Use Types Packs/Day Years Used Date Smoking Tobacco: Every Day Comments:Smoking History Pac ks/day: 0.5 Packs Alcohol Use Standard Drinks/Week Comments Yes 0 (1 standard drink = 0.6 oz pur e alcohol) Comments Unknown Sex and Gender Information Value Date Recorded Sex Assigned at Not on file 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 Historical Provider [facility] Final Result documented in this encounter Visit Diagnoses Not on filedocumented in this encounter Care Teams Clinical Systems Educator Relationship Specialty Start Date End Date Bert Glez MD PCP - General 04/09/13 Reji Godinez MD [address] [place] [address] [address] Digitizer Cardiology 04/26/19 Farooq Hitchcock MD [address] [address] Consulting Physician Clinical Cardiac Electrophysiology 11/15/24 documented as of this encounter
--- OUTSIDE RECORDS SUMMARY | 2025-06-19 17:25 | XMS_ITS | Encounter Summary ---
Author Organization [facility] Care Team Providers Care Pharmacy Order Entry Technician Name Role Phone Bert Glez MD Primary Care Prov ider Reji Godinez MD Unavailable [phone] Farooq Hitchcock MD Unavailable [phone] Encounter Details Date Type Department Care Team (Latest Contact Info) Description 12/19/2015 Orders Only [facility] CLINCONV Provider, MD Alexandru [address] [place] [id number] Social History Tobacco Use Types Packs/Day Years Used Date Smoking Tobacco: Every Day Comments:Smoking History Pac ks/day: 0.5 Packs Alcohol Use Standard Drinks/Week Comments Yes 0 (1 standard drink = 0.6 oz pur e alcohol) Comments Unknown Sex and Gender Information Value Date Recorded Sex Assigned at Not on file Legal Sex Female 2:06 AM 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 Historical Provider [facility] Final Result documented in this encounter Visit Diagnoses Not on filedocumented in this encounter Care Teams Pharmacy Order Entry Technician Relationship Specialty Start Date End Date Bert Glez MD PCP - General 04/09/13 Reji Godinez MD [address] [address] [place] [address] [address] Facility Attendant Cardiology 04/26/19 Farooq Hitchcock MD [address] [address] Consulting Physician Clinical Cardiac Electrophysiology 11/15/24 documented as of this encounter
--- OUTSIDE RECORDS SUMMARY | 2025-06-19 17:25 | XMS_ITS | Encounter Summary ---
Author Organization [facility] Care Team Providers Care Insurance Healthcare Consultant Name Role Phone Bert Glez MD Primary Care Prov ider Reji Godinez MD Unavailable Farooq Hitchcock MD Unavailable [phone] Encounter Details Date Type Department Care Team (Latest Contact Info) Description 12/16/2015 Orders Only [facility] CLINCONV Provider, MD Alexandru [address] [place] [id number] Social History Tobacco Use Types Packs/Day Years Used Date Smoking Tobacco: Every Day Comments:Smoking History Pac ks/day: 0.5 Packs Alcohol Use Standard Drinks/Week Comments Yes 0 (1 standard drink = 0.6 oz pur e alcohol) Comments Unknown Sex and Gender Information Value Date Recorded Sex Assigned at Not on file Legal Sex Female 2:06 AM DEV OPS ENGINEER Gender Identity Not on file Sexual Orientation Not on file documented as of this encounter Plan of Treatment Not on file documented as of this encounter Procedures Procedure Name Priority Date/Time Associated Diagnosis Comments CARDIOLOGY REPORT 08/05/2016 12: 00 AM DEV OPS ENGINEER documented in this encounter Results * CARDIOLOGY REPORT (08/05/2016 12:00 AM DEV OPS ENGINEER) Anatomical Region Laterality Modality Other Narrative 08/05/2016 12:00 AM DEV OPS ENGINEER Ordered by an unspecified provider. Historical Provider [facility] Final Result documented in this encounter Visit Diagnoses Not on filedocumented in this encounter Care Teams Insurance Healthcare Consultant Relationship Specialty Start Date End Date Bert Glez MD PCP - General 04/09/13 Reji Godinez MD [address] [facility] [facility] [address] [address] [place] [address] [address] Nuclear Medicine Specialist Cardiology 04/26/19 Farooq Hitchcock MD [address] [address] Consulting Physician Clinical Cardiac Electrophysiology 11/15/24 documented as of this encounter
== END 2025-06-19 15:19 | disposition home or self-care (01) ==
PROVIDERS: PCP Family Medicine Adolescent Medicine; Visit Provider Nurse Practitioner
DX: N20.0 Calculus of kidney (principal); K57.32 Diverticulitis of large intestine without perforation or abscess without bleeding
CPT/HCPCS: 74176

== ENCOUNTER 2025-06-24 17:11 | Emergency (ER) | payer MEDICARE, SELFPAY ==
--- NOTE | ~2025-06-24 | CT_ITS ---
CT abdomen pelvis w con INDICATION:LLQ pain, recent dx diverticulitis . COMPARISON: None. TECHNIQUE: Axial images of the abdomen and pelvis were obtained following infusion of 100 mL Isovue 300. Dose optimization technique was utilized. FINDINGS: Lobulated left lung base nodule measures 1.8 x 0.7 cm. Lungs are otherwise clear. The liver parenchyma is unremarkable. No intrahepatic mass or ductal dilatation is evident. The gallbladder is unremarkable. The pancreas and spleen are normal in appearance. The adrenal glands are symmetric in size. The kidneys demonstrate symmetric uptake and excretion of contrast. No cystic mass is evident. There is no solid mass. There is no hydronephrosis. Evaluation of the stomach and bowel loops are limited due to lack of oral contrast. The appendix is normal in appearance. There are colonic diverticulosis with mild adjacent induration and thickening of the proximal sigmoid colon suggestive of mild diverticulitis. No free air or free fluid. The bladder and rectum are normal. No free intraperitoneal fluid or air is evident. There is no significant retroperitoneal lymphadenopathy. The aorta, visceral vessels and renal arteries demonstrate normal caliber and patency. The lower thoracic and lumbar vertebrae are in normal alignment. IMPRESSION: Mild diverticulitis of the proximal sigmoid colon. All CT scans at this facility are performed using low dose modulation techniques as appropriate to perform exam including the following: automated exposure control; use of iterative reconstruction technique; adjustment of the mA and/or kV according to patient size (this includes techniques or standardized protocols for targeted exams where dose is matched to indication/reason for exam). Reviewed, dictated and finalized at location S. IMPRESSION: Mild diverticulitis of the proximal sigmoid colon. All CT scans at this facility are performed using low dose modulation techniqu es as appropriate to perform exam including the following: automated exposure c ontrol; use of iterative reconstruction technique; adjustment of the mA and/or kV according to patient size (this includes techniques or standardized protocol s for targeted exams where dose is matched to indication/reason for exam).
[2025-06-24 17:56] VITALS: BP 140/65; PULSE 65; RESP 20; TEMP 36.6; O2SAT 100
--- NOTE | 2025-06-24 18:20 | ED.ABDPAIN ---
HPI - Abdominal Pain General Chief Complaint: Abdominal Pain <BASSAM Whitney Last Filed: 06/24/25 18:27> Stated Complaint: sent by PCP for abdominal pain <BASSAM Whitney Last Filed: 06/24/25 18:27> Time Seen by Provider: 06/24/25 18:20 <BASSAM Whitney Last Filed: 06/24/25 18:27> Focused HPI: Patient is a 69 y/o female who presents to the ED with c/o LLQ ABD pain. Patient was diagnosed with diverticulitis via CT scan on 06/19. Started on augmentin. Has been taking this as prescribed, but states sx's having continued to worsen. Reports worsening pain. Has been taking Tylenol and Ibuprofen w/o improvement. Denies N/V/D. Reports regular BMs. Denies fevers. GENERAL: Mildly ill appearing, obese with BMI of 34.1, and in no acute distress. HEAD: Normocephalic, atraumatic. CHEST: Clear to auscultation. ?No respiratory distress. HEART: Regular rate and rhythm.? ABD: Focal TTP in LLQ, no rebound, normoactive BS NEURO: ?Alert and oriented x3. Patient screened in triage and initial orders placed.? ?Additional care and disposition to be based upon?diagnostic testing and treatment. <BASSAM Whitney Last Filed: 06/24/25 18:27> Source: patient and old records reviewed <BASSAM Whitney Last Filed: 06/24/25 18:27> Mode of arrival: ambulatory <BASSAM Whitney Last Filed: 06/24/25 18:27> Limitations: no limitations <BASSAM Whitney Filed: 06/24/25 18:27> Related Data Home Medications: Home Medications ?Medication ?Instructions ?Recorded ?Confirmed ?Last Taken ?Type irbesartan 75 mg tablet 75 mg PO HS 05/05/21 06/19/25 04/11/23 21:00 History atorvastatin 20 mg tablet 20 mg PO HS 03/17/22 06/19/25 04/11/23 21:00 History ezetimibe 10 mg tablet 10 mg PO HS 03/17/22 06/19/25 04/11/23 21:00 History Fish Oil 1 cap PO QAM 07/08/22 06/19/25 04/12/23 09:00 History gabapentin 300 mg capsule 600 mg PO HS 06/19/24 06/19/25 Unknown History ipratropium bromide 42 mcg (0.06 2 spray intranasal DAILY 06/19/24 06/19/25 Unknown History %) nasal spray rivaroxaban 20 mg tablet (Xarelto) 20 mg PO HS 06/19/24 06/19/25 Unknown History topiramate 50 mg tablet 50 mg PO BID 06/19/25 06/19/25 Unknown History <Cammie Pal PA-C - Last Filed: 06/24/25 18:27> Allergies/Adverse Reactions: Allergies Allergy/AdvReac Type Severity Reaction Status Date / Time acetylcysteine Allergy Severe Other Verified 06/24/25 17:56 ciprofloxacin Allergy Severe Rash Verified 06/24/25 17:56 celecoxib Allergy Intermediate rash Verified 06/24/25 17:56 lisinopril Allergy Intermediate cough Verified 06/24/25 17:56 duloxetine AdvReac Unknown Rash Verified 06/24/25 17:56 adhesive tape Allergy Intermediate Blister Uncoded 06/19/25 13:51 <Cammie Pal PA-C - Last Filed: 06/24/25 18:27> Review of Systems Review of Systems: All systems reviewed & are unremarkable except as noted in HPI and below <Maisha Wilson PA-C - Last Filed: 06/25/25 02:04> [facility] Past Medical History Medical History: Medical History (Updated 06/25/25 @ 00:01 by Background Becky) Atrial fibrillation with rapid ventricular response (06/2024) Vasomotor rhinitis Chronic anticoagulation On Xarelto and 81 mg aspirin Lumbosacral radiculopathy at S1 Sacroiliac joint dysfunction of left side Hyperglycemia VALENTIN positive Peripheral neuropathy Seborrheic keratosis Paroxysmal atrial fibrillation New onset December 2023 Hypokalemia History of kidney stones Left knee pain Left hip pain GERD (gastroesophageal reflux disease) Mixed hyperlipidemia Essential (primary) hypertension Encounter for screening colonoscopy 05/26 Repeat 05/31 Gout <BASSAM Whitney Last Filed: 06/24/25 18:27> Surgical History Surgical History: Surgical History (Updated 06/19/24 @ 05:33 by Cindi Segura DO) History of medial meniscus repair of left knee (~07/16/22) History of colonoscopy History of endoscopy Hx of plastic surgery facial reconstruction Hx of carpal tunnel repair Rt trigger finger (thumb) History of tubal ligation History of coronary artery stent placement x3 (2006, 2011, 2014) Hx of CABG Two vessel CABG 2005 <BASSAM Whitney Last Filed: 06/24/25 18:27> Family History Family History: Family History Father Diabetes mellitus Hypertension Mother Hypertension Spinal stenosis Unknown Heart disease <BASSAM Whitney Last Filed: 06/24/25 18:27> Social History Social History: Social History (Updated 06/19/24 @ 05:35 by Cindi Segura DO) Social History: Code status: Full code Healthcare power of securities attorney: Joey Sukhwindergloria () Smoking packs per day: 1 Smoking cigarettes per day: 20.0 Years smoked: 50 Smoking pack-years: 50.00 Smoking status: Former smoker Second hand tobacco smoke exposure: No Alcohol intake: never Substance use: never Substance use type: does not use Do You Feel Safe in your Home?: Yes Lack of Transportation: No Lack of Food: Never True Current Housing: I Have Housing Concerned About Future Housing: No Difficulty Paying Gas/Electric Bills: No Difficulty Paying for Meds: No Currently Unemployed: No Education: High School Diploma/GED Difficulty w/ Childcare or Family Care: No Living arrangements: with family Occupation/Education: retired Gender identity (if verbalized by the patient): Female Sexual Orientation (if Verbalized by the Patient): Straight or Heterosexual Spiritual care concerns: No Agree to blood products: Yes <BASSAM Whitney Last Filed: 06/24/25 18:27> Exam Narrative: GENERAL: Well-appearing, well-nourished, and in no acute distress. HEAD: Normocephalic, atraumatic. EYES: EOMI. CHEST: Clear to auscultation. No respiratory distress. No wheezes rales or rhonchi HEART: Regular rate and rhythm. No murmur heard. Normal peripheral pulses. ABDOMEN: Soft, nontender, nondistended, normal active bowel sounds. EXTREMITIES: Normal range of motion. No edema. SKIN: Warm, dry, no rash. NEURO: No focal deficits. Alert and oriented x3. PSYCH: Normal mood and affect <BASSAM Ortez Last Filed: 06/25/25 02:04> Course Vital Signs Vital signs: Vital Signs Temperature 97.9 F 06/24/25 17:56 Pulse Rate 65 06/24/25 17:56 Respiratory Rate 20 06/24/25 17:56 Blood Pressure 140/65 06/24/25 17:56 Pulse Oximetry 100 06/24/25 17:56 Oxygen Delivery Room Air 06/24/25 17:56 Temperature 97.9 F 06/24/25 17:56 Pulse Rate 65 06/24/25 17:56 Respiratory Rate 20 06/24/25 17:56 Blood Pressure 140/65 06/24/25 17:56 Pulse Oximetry 100 06/24/25 17:56 Oxygen Delivery Room Air 06/24/25 17:56 <BASSAM Whitney Last Filed: 06/24/25 18:27> Vital Signs Temperature 97.9 F 06/24/25 17:56 Pulse Rate 65 06/24/25 17:56 Respiratory Rate 20 06/24/25 17:56 Blood Pressure 140/65 06/24/25 17:56 Pulse Oximetry 100 06/24/25 17:56 Oxygen Delivery Room Air 06/24/25 17:56 Temperature 97.9 F 06/24/25 17:56 Pulse Rate 65 06/24/25 17:56 Respiratory Rate 20 06/24/25 17:56 Blood Pressure 140/65 06/24/25 17:56 Pulse Oximetry 100 06/24/25 17:56 Oxygen Delivery Room Air 06/24/25 17:56 <BASSAM Ortez Last Filed: 06/25/25 02:04> MDM - Abdominal Pain MDM Narrative Medical decision making narrative: MSE by ALEJANDRO in triage. <BASSAM Whitnye Filed: 06/24/25 18:27> MSE by ALEJANDRO in triage. Patient presents emergency department for continued abdominal pain. Currently on oral antibiotics for diverticulitis. She is afebrile and nontoxic appearing. Her vitals are stable. Cbc without leukocytosis. Metabolic panel without concerning findings. Urine without evidence of infection. CT abdomen pelvis showing mild diverticulitis of the proximal sigmoid colon. We spoke about admission for further IV antibiotics. Patient declines at this time. Will switch up oral antibiotics. Instructed on diet. She is to follow up with PCP. She was given warnings to return to the ER <BASSAM Ortez Last Filed: 06/25/25 02:04> Differential Diagnosis Differential diagnosis: Likely diverticulitis and other (intra-abdominal abscess, bowel perforation) <BASSAM Ortez Last Filed: 06/25/25 02:04> Lab Data Attestation: I reviewed the patient's lab results. <BASSAM Ortez Last Filed: 06/25/25 02:04> Result diagrams: 06/24/25 18:58 06/24/25 18:58 <BASSAM Whitney Last Filed: 06/24/25 18:27> Labs: Lab Results 06/24/25 06/24/25 Range/Units 18:58 21:14 WBC 8.7 (4.5-10.0) K/mm3 RBC 4.20 (4.2-5.4) M/mm3 Hgb 12.7 (12.0-15.0) g/dL Hct 37.6 (37.0-47.0) % MCV 89.5 (80-100) fl MCH 30.2 (26-34) pg MCHC 33.8 (32-36) g/dl RDW 13.1 (11.5-14.5) % Plt Count 204 (150-375) k/mm3 MPV 9.2 (7.4-10.4) fl Immature Gran % (Auto) 0.3 (0-0.5) % Neut % (Auto) 58.5 (45.5-73.1) % Lymph % (Auto) 31.6 (18.3-44.2) % [place] % (Auto) 7.3 (2.6-8.5) % Eos % (Auto) 1.7 (0-4.4) % Baso % (Auto) 0.6 (0.2-1.2) % Lymph # (Auto) 2.75 (0.9-3.2) K/mm3 [place] # (Auto) 0.6 (0.1-0.6) K/mm3 Eos # (Auto) 0.2 (0-0.3) K/mm3 Baso # (Auto) 0.1 (0.0-0.1) K/mm3 Abs Immat Gran (auto) 0.03 (0.00-0.031) K/mm3 Absolute Neuts (auto) 5.1 (1.3-6.7) K/mm3 Absolute Nucleated RBC 0.000 (0.0-0.012) K/mm3 Nucleated RBC % 0.0 (0.0-0.2) % Sodium 139 (137-145) mmol/L Potassium 3.4 (3.4-5.0) mmol/L Chloride 108 H (98-107) mmol/L Carbon Dioxide 23 (22-30) mmol/L Anion Gap 8 (4-12) mmol/L BUN 17 (7-17) mg/dL Creatinine 0.90 (0.7-1.0) mg/dL Estim Creat Clear Calc 49 ml/min Estimated GFR > 60 (59 - ) Glucose 98 (65-110) mg/dL Lactic Acid 0.7 (0.7-2.0) mmol/L Calcium 9.4 (8.4-10.2) mg/dL Total Bilirubin 0.4 (0.2-1.3) mg/dL AST 35 (14-36) U/L ALT 21 (6-35) U/L Alkaline Phosphatase 111 (38-126) U/L Total Protein 7.4 (6.3-8.2) g/dL Albumin 4.1 (3.5-5.1) g/dL Urine Color Yellow (Yellow) Urine Appearance Clear (Clear) Urine pH 6.5 (5.0-9.0) Ur Specific [place] > 1.045 H (1.001-1.035) Urine Protein Negative (Negative) mg/dL Urine Glucose (UA) Negative (Negative) mg/dL Urine Ketones Negative (Negative) mg/dL Ur Blood (Man) Negative (Negative) Urine Nitrate Negative (Negative) Urine Bilirubin Negative (Negative) Urine Urobilinogen 0.2 (<2.0) mg/dL Leukocyte Esterase Rfl Negative (Negative) [facility]/UL <Cammie Pal PA-C - Last Filed: 06/24/25 18:27> Lab Results 06/24/25 06/24/25 Range/Units 18:58 21:14 WBC 8.7 (4.5-10.0) K/mm3 RBC 4.20 (4.2-5.4) M/mm3 Hgb 12.7 (12.0-15.0) g/dL Hct 37.6 (37.0-47.0) % MCV 89.5 (80-100) fl MCH 30.2 (26-34) pg MCHC 33.8 (32-36) g/dl RDW 13.1 (11.5-14.5) % Plt Count 204 (150-375) k/mm3 MPV 9.2 (7.4-10.4) fl Immature Gran % (Auto) 0.3 (0-0.5) % Neut % (Auto) 58.5 (45.5-73.1) % Lymph % (Auto) 31.6 (18.3-44.2) % [place] % (Auto) 7.3 (2.6-8.5) % Eos % (Auto) 1.7 (0-4.4) % Baso % (Auto) 0.6 (0.2-1.2) % Lymph # (Auto) 2.75 (0.9-3.2) K/mm3 [place] # (Auto) 0.6 (0.1-0.6) K/mm3 Eos # (Auto) 0.2 (0-0.3) K/mm3 Baso # (Auto) 0.1 (0.0-0.1) K/mm3 Abs Immat Gran (auto) 0.03 (0.00-0.031) K/mm3 Absolute Neuts (auto) 5.1 (1.3-6.7) K/mm3 Absolute Nucleated RBC 0.000 (0.0-0.012) K/mm3 Nucleated RBC % 0.0 (0.0-0.2) % Sodium 139 (137-145) mmol/L Potassium 3.4 (3.4-5.0) mmol/L Chloride 108 H (98-107) mmol/L Carbon Dioxide 23 (22-30) mmol/L Anion Gap 8 (4-12) mmol/L BUN 17 (7-17) mg/dL Creatinine 0.90 (0.7-1.0) mg/dL Estim Creat Clear Calc 49 ml/min Estimated GFR > 60 (59 - ) Glucose 98 (65-110) mg/dL Lactic Acid 0.7 (0.7-2.0) mmol/L Calcium 9.4 (8.4-10.2) mg/dL Total Bilirubin 0.4 (0.2-1.3) mg/dL AST 35 (14-36) U/L ALT 21 (6-35) U/L Alkaline Phosphatase 111 (38-126) U/L Total Protein 7.4 (6.3-8.2) g/dL Albumin 4.1 (3.5-5.1) g/dL Urine Color Yellow (Yellow) Urine Appearance Clear (Clear) Urine pH 6.5 (5.0-9.0) Ur Specific [place] > 1.045 H (1.001-1.035) Urine Protein Negative (Negative) mg/dL Urine Glucose (UA) Negative (Negative) mg/dL Urine Ketones Negative (Negative) mg/dL Ur Blood (Man) Negative (Negative) Urine Nitrate Negative (Negative) Urine Bilirubin Negative (Negative) Urine Urobilinogen 0.2 (<2.0) mg/dL Leukocyte Esterase Rfl Negative (Negative) [facility]/UL <Maisha Wilson PA-C - Last Filed: 06/25/25 02:04> Imaging Data Radiologist's impression: ITS Impressions Abdomen/Pelvis CT 06/24/25 19:46 IMPRESSION: Mild diverticulitis of the proximal sigmoid colon. All CT scans at this facility are performed using low dose modulation techniques as appropriate to perform exam including the following: automated exposure control; use of iterative reconstruction technique; adjustment of the mA and/or kV according to patient size (this includes techniques or standardized protocols for targeted exams where dose is matched to indication/reason for exam). <Cammie Pal PA-C - Last Filed: 06/24/25 18:27> ITS Impressions Abdomen/Pelvis CT 06/24/25 19:46 IMPRESSION: Mild diverticulitis of the proximal sigmoid colon. All CT scans at this facility are performed using low dose modulation techniques as appropriate to perform exam including the following: automated exposure control; use of iterative reconstruction technique; adjustment of the mA and/or kV according to patient size (this includes techniques or standardized protocols for targeted exams where dose is matched to indication/reason for exam). <BASSAM Ortez Filed: 06/25/25 02:04> Critical Care Time Critical Care Time Critical Care Time: No <BASSAM Ortez Last Filed: 06/25/25 02:04> Discharge Plan Discharge Clinical Impression: Diverticulitis <BASSAM Whitney Last Filed: 06/24/25 18:27> Patient Disposition: Home <BASSAM Whitney Last Filed: 06/24/25 18:27> Condition: Stable <BASSAM Whitney Last Filed: 06/24/25 18:27> Instructions: Antibiotic Form, Diverticulitis (ED), Diverticulitis Diet (ED) <BASSAM Whitney Filed: 06/24/25 18:27> Additional Instructions: Return to the ER if you experience fever, abdominal pain with nausea and vomiting, you are unable to keep down liquids or solids, or any other symptoms that are concerning to you Remain well hydrated. Take oral antibiotics as prescribed Follow up with primary care doctor <BASSAM Whitney Filed: 06/24/25 18:27> Patient Language: Yakut <BASSAM Whitney Filed: 06/24/25 18:27> Prescriptions: New sulfamethoxazole-trimethoprim 800-160 mg tablet 1 tablet PO Q12H 7 Days Qty: 14 0RF metronidazole 500 mg tablet 500 mg PO Q12H 7 Days Qty: 14 0RF No Action potassium chloride 20 mEq tablet extended release 20 meq PO DAILY Qty: 300 3RF metoprolol succinate [Toprol XL] 25 mg tablet extended release 24 hr 100 mg PO QAM Qty: 270 3RF furosemide 80 mg tablet 20 mg PO DAILY Qty: 30 0RF Patient Comments: pt states she sometimes only takes 40mg and sometimes she takes 80mg. If she is not showing increased weight and/or swelling, she takes 40mg. topiramate 50 mg tablet 50 mg PO BID ezetimibe 10 mg tablet 10 mg PO HS atorvastatin 20 mg tablet 20 mg PO HS Fish Oil 1 cap PO QAM irbesartan 75 mg tablet 75 mg PO HS gabapentin 300 mg capsule 600 mg PO HS ipratropium bromide 42 mcg (0.06 %) spray,non-aerosol 2 spray intranasal DAILY Rx Instructions: administer into each nostril Xarelto 20 mg tablet 20 mg PO HS amoxicillin-pot clavulanate 875-125 mg tablet 1 tablet PO BID Qty: 20 0RF <Cammie Pal PA-C - Last Filed: 06/24/25 18:27> Other Ambulatory Orders: Basic Metabolic Panel (Routine) Timeframe: 1 Week Location: Determined by Patient Ordered By: Maisha Wilson <Cammie Pal PA-C - Last Filed: 06/24/25 18:27> Follow-up/Referrals: Bert Glez MD [Primary Care Provider, Family Practice] <Cammie Pal PA-C - Last Filed: 06/24/25 18:27>
[2025-06-24] MEDS: HYDROcodone/acetaminophen (*CRX) 5-325 MG TABLET 1 TAB PO (18:58)
[2025-06-24] MEDS: ONDANSETRON INJ 4 MG/2 ML VIAL IV PUSH (18:59)
[2025-06-24 19:08] LABS: Hematocrit 37.6 % (37.0-47.0); Hemoglobin 12.7 g/dL (12.0-15.0); Immature Granulocyte Percent A 0.3 % (0-0.5); Lymphocytes Absolute Auto 2.75 K/mm3 (0.9-3.2); Mean Corpuscular HGB Conc 33.8 g/dl (32-36); Mean Corpuscular Hemoglobin 30.2 pg (26-34); Mean Corpuscular Volume 89.5 fl (80-100); Nucleated Red Blood Cells Absolute Auto 0.000 K/mm3 (0.0-0.012); Nucleated Red Blood Cells Perc 0.0 % (0.0-0.2); Platelet Count Result 204 k/mm3 (150-375); Red Blood Count 4.20 M/mm3 (4.2-5.4); White Blood Count 8.7 K/mm3 (4.5-10.0)
[2025-06-24 19:24] LABS: Alanine Aminotransferase 21 U/L (6-35); Albumin Level 4.1 g/dL (3.5-5.1); Alkaline Phosphatase 111 U/L (38-126); Anion Gap 8 mmol/L (4-12); Aspartate Amino Transferase 35 U/L (14-36); Bilirubin,Total 0.4 mg/dL (0.2-1.3); Blood Urea Nitrogen 17 mg/dL (7-17); Calcium 9.4 mg/dL (8.4-10.2); Carbon Dioxide 23 mmol/L (22-30); Chloride 108 mmol/L (98-107); Estimated CRCL calculation 49 ml/min; Estimated Glomerular Filt Rate > 60; Glucose 98 mg/dL (65-110); Potassium 3.4 mmol/L (3.4-5.0); Sodium 139 mmol/L (137-145); Total Protein 7.4 g/dL (6.3-8.2)
[2025-06-24 21:23] LABS: Add Urine Microscopic? NO; Appearance Urine Clear (Clear); Glucose Urine UA Negative (Negative); Leukocyte Esterase Ur Negative LEU/UL (Negative); Nitrate Urine Negative (Negative); Specific Grav Ur > 1.045 (1.001-1.035)
== END 2025-06-24 23:00 | disposition home or self-care (01) ==
PROVIDERS: Physician Assistant; Emergency Provider Physician Assistant; PCP Family Medicine Adolescent Medicine
DX: K57.32 Diverticulitis of large intestine without perforation or abscess without bleeding (principal); Z79.01 Long term (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; Z87.442 Personal history of urinary calculi; K21.9 Gastro-esophageal reflux disease without esophagitis; I10 Essential (primary) hypertension
CPT/HCPCS: 36415; 74177; 80053; 81003; 83605; 85025; 96374; 99284; A9270; J2405; Q9967

== ENCOUNTER 2025-06-28 09:28 | Inpatient (IN) | payer MEDICARE, SELFPAY ==
--- NOTE | ~2025-06-28 | CT_ITS ---
CT abdomen pelvis w con Clinical History: LLQ pain . Comparison: 06/24/2025 Technique: Axial images lung bases to symphysis pubis IV contrast information not listed in PACS Coronal, sagittal reformats CT images acquired with automatic exposure control for dose reduction DLP: 442 mGy-cm Findings: Lung bases: Clear. Visualized heart and pericardium: Unremarkable. Liver: Enlarged. Mild steatosis. Gallbladder: Unremarkable. Spleen: Unremarkable. Pancreas: Unremarkable. Adrenal glands: Unremarkable. Kidneys: Right kidney- No hydronephrosis. No renal stones. Left kidney- No hydronephrosis. No renal stones. Distal esophagus/stomach: Mild distal esophageal wall thickening/esophagitis. Small bowel loops: Normal caliber and wall thickness. Colon: Diverticula. Minimal perisigmoid inflammation, not significantly changed. Normal RLQ appendix. Nodes: No enlarged nodes. Peritoneum: No ascites. No free air. Urinary bladder: Unremarkable. Uterus: Unremarkable. Adnexa: No masses. Bones: No acute bony abnormality. Soft tissues: Unremarkable. Aorta: No aneurysm or dissection. IVC: Unremarkable. Main portal vein/SMV/splenic vein: Patent. IMPRESSION: 1. Mild diverticulitis proximal sigmoid colon persists, not significantly changed. 2. No complicating features have developed. Reviewed, dictated and finalized at location R. IMPRESSION: 1. Mild diverticulitis proximal sigmoid colon persists, not significantly stiles ged. 2. No complicating features have developed.
[2025-06-28 09:33] VITALS: BP 171/86; PULSE 57; RESP 16; TEMP 36.6; O2SAT 97
--- OUTSIDE RECORDS SUMMARY | 2025-06-28 09:40 | XMS_ITS | Encounter Summary ---
Author Organization [facility] Healthcare Address [address] [place] [address] Care Team Providers Care Top Coater Name Role Phone Bert Glez MD Primary Care Prov ider Reji Godinez MD Unavailable Farooq Hitchcock MD Unavailable [phone] Encounter Details Date Type Department Care Team (Late st Contact Info) Description 06/21/2025 Results Follow-Up [facility] Convenient Care at [place] [address] [place] [address] Jarret Kellogg NP [address] [facility] [address] [place] [address] Urine culture Urine, clean voided Social History Tobacco Use Types Packs/Day Years [...] on file Legal 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 documented in this encounter Plan of Treatment Not on file documented as of this encounter Visit Diagnoses Not on filedocumented in this encounter Care Teams Top Coater Relationship Specialty Start Date End Date Bert Glez MD PCP - General 04/09/13 Reji Godinez MD [address] [facility] [address] [place] [address] [address] Shuttle Threader Cardiology 04/26/19 Farooq Hitchcock MD [address] [address] Consulting Physician Clinical Cardiac Electrophysiology 11/15/24 documented as of this encounter
--- OUTSIDE RECORDS SUMMARY | 2025-06-28 09:40 | XMS_ITS | Clinical Summary ---
Author Organization [facility] Address [address] [place] [address] Care Team Providers Care Packing And Stamping Machine Operator Name Role Phone Bert Glez MD Primary Care Prov ider Reji Godinez MD Unavailable [phone] Farooq Hitchcock MD Unavailable [phone] Allergies Active Allergy Reactions Criticality Noted Date Comments Acetylcysteine Unknown 05/01/2019 Adhesive Blisters High 06/03/2023 Celecoxib Hives,Itching Medium 05/22/2021 Ciprofloxacin Joint pain,Muscle pain Medium 05/22/2021 Lisinopril Cough Low 04/18/2020 Medications fish oil-fat acid [id number] (OMEGA 3-6-9) 1,200 mg (400 [id number]) capsule take 1 by Oral route every [...] Encounters Date Type Department Care Team Description 06/21/2025 Results Follow-Up [facility] Medical [facility] Convenient Care at [address] [address] Jarret Kellogg NP Urine culture Urine, clean voided 06/19/2025 11:45 AM CDT Office Visit [facility] Medical [facility] Convenient Care at [address] [address] Eneida Hdez NP Lower abdominal pain (Primary Dx); Pelvic pain 06/19/2025 11:34 AM CDT - 06/19/2025 11:59 PM CDT Hospital Encounter [facility] [address] [place] [address] Pelvic pain Discharge Disposition: Discharge to home or self care 06/18/2025 9:20 AM CDT Lab [address] [address] Blood glucose elevated (Primary Dx); Essential hypertension, malignant; Paroxysmal atrial fibrillation (HCC); assistant terminal manager (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; Impaired fasting glucose 05/11/2025 Results Follow-Up [facility] Cardiology [address] [facility] [address] [place] [address] Reji Godinez MD Basic metabolic panel, CBC with auto differential, Differential, auto, eGFR 04/23/2025 1:45 PM CDT Office Visit [facility] Family Medicine at [place] [id number] [facility] [address] [place] [address] Dennis Mao MD Class 2 obesity due to excess calories without serious comorbidity with body mass index (BMI) of 35.0 to 35.9 in adult 04/22/2025 11:30 AM CDT Office Visit [facility] Care at [address] [phone] Eneida Hdez, YARITZA Non-recurrent acute suppurative otitis media of left ear without spontaneous rupture of tympanic membrane (Primary Dx) 04/15/2025 10:30 AM CDT Office Visit [facility] Orthopedics and Sports Medicine [address] [place] [address] [address] [place] [address] Kia Jurado NP Lumbar facet arthropathy, inferior; Degeneration of intervertebral disc of lumbar region, mild L3-L4 and severe L5-S1 with discogenic back pain and lower extremity pain 04/12/2025 11:20 AM CDT Lab [address] [address] Paroxysmal atrial fibrillation (HCC); 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; Primary hypertension from [...] ATRIAL FIBRILLATION (A-FIB) VIA PULMONARY VEIN ISOLATION [id number]; Surgeon: Farooq Hitchcock MD; Location: [facility] EP LAB; Service: Cardiovascular; Laterality: N/A; Medical [...] on file Legal Sex Female 2:06 AM AUDITING MANAGER Gender Identity Not on file Sexual Orientation [...] Well Visit 65+ 2019 Covid-19 Vaccine ( season) 2025 07/01/2021, 11/22/2020, 11/01/2020 Influenza Vaccine (#1) 2025 , 06/10/2023, 06/10/2022 Fall Risk Assessment 10/18/2025 10/18/2024 Depression Screening 04/23/2026 04/23/2025 DTaP/Tdap/Td Vaccine (2 - Td or Tdap) 07/19/2027 Medical Devices Implanted Type Area Appraisal Specialist Device Identifier Shelf Expiration Date Model / Serial / Lot [employer] V[employer] System Closure Repair Femoral Artery Suture Mediated Perclose Prostyle 76057-81 - [id number] - [id number] Implanted:Qty: 1 on 10/18/2024 by Farooq Hitchcock MD at [facility] Vascular Closure Device [employer] 08/04/2026 53945-34 / [id number] / [id number] [employer] System Closure Repair Femoral Artery Suture Mediated Perclose Prostyle 57414-54 - [id number] - [id number] Implanted:Qty: 1 on 10/18/2024 by Farooq Hitchcock MD at [facility] Vascular Closure Device [employer] 08/04/2026 36082-73 / [id number] / [id number] [employer] Device Vascular Closure Vascade Mvp Xl 10-12fr Venous Strl 800-1012xl - [id number] - [id number] Implanted:Qty: 1 on 10/18/2024 by Farooq Hitchcock MD at [facility] Vascular Closure Device [employer] 05/28/2026 [id number] L / [id number] / [id number] [employer] Device Closure Vascade Od5 Fr Femoral Artery [id number] - [id number] - [id number] Implanted:Qty: 1 on 10/18/2024 by Farooq Hitchcock MD at [facility] Vascular Closure Device [employer] 06/27/2026 [id number] -[id number] / [id number] / [id number] [employer] Device Vascular Closure Femoral Artery Bioabsorbable Dual Method Vascade 6-7fr Collagen [id number] - [id number] - [id number] Implanted:Qty: 1 on 10/18/2024 by Farooq Hitchcock MD at [facility] Vascular Closure Device [employer] 07/02/2026 [id number]- [id number] / [id number] / [id number] Procedures Procedure Name Priority Date/Time Associated Diagnosis Comments POCT URINALYSIS DIPSTICK Routine 06/19/2025 11:34 AM CDT Pelvic pain URINE CULTURE Routine 06/19/2025 10:00 AM CDT Pelvic pain EGFR Routine 06/18/2025 9:28 AM CDT Blood glucose elevated Essential hypertension, malignant Paroxysmal atrial fibrillation (HCC) assistant terminal manager (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 Impaired fasting glucose CBC WITHOUT DIFFERENTIAL Routine 06/18/2025 9:28 AM CDT Blood glucose elevated Essential hypertension, malignant Paroxysmal atrial fibrillation (HCC) assistant terminal manager (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 Impaired fasting glucose LIPID PANEL Routine 06/18/2025 9:28 AM CDT Blood glucose elevated Essential hypertension, malignant Paroxysmal atrial fibrillation (HCC) FDC (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 Impaired fasting glucose COMPREHENSIVE METABOLIC PANEL Routine 06/18/2025 9:28 AM CDT Blood glucose elevated Essential hypertension, malignant Paroxysmal atrial fibrillation (HCC) assistant terminal manager (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 Impaired fasting glucose HEMOGLOBIN A1C Routine 06/18/2025 9:28 AM CDT Blood glucose elevated Essential hypertension, malignant Paroxysmal atrial fibrillation (HCC) FDC (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 Impaired fasting glucose EGFR Routine 04/12/2025 11:30 AM CDT Paroxysmal atrial fibrillation (HCC) 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 Primary hypertension DIFFERENTIAL AUTO Routine 04/12/2025 11: 30 AM CDT Paroxysmal atrial fibrillation (HCC) 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 Primary hypertension CBC WITH AUTO DIFFERENTIAL Routine 04/12/2025 11:30 AM CDT Paroxysmal atrial fibrillation (HCC) 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 Primary hypertension BASIC METABOLIC PANEL Routine 04/12/2025 11:30 AM CDT Paroxysmal atrial fibrillation (HCC) 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 Primary hypertension from Last 3 Months Results * (ABNORMAL) POCT urinalysis dipstick (06/19/2025 11:34 AM CDT) [facility] Color, Urine, POC Yellow Clarity, ur, POC Cloudy(A) Clear Glucose, ur, POC Negative Negative Bilirubin, ur, POC Negative Negative Ketones, ur, POC Negative Negative Specific [place], POC 1.015 1.003 - 1.030 Blood, ur, POC Hemolyzed, trace(A) Negative pH, ur, POC 5.5 5.0 - 8.0 Protein, ur, POC Negative Negative Urobilinogen, urine, POC 0.2 0.2 - 1.0 mg/dL Nitrite, ur, POC Negative Negative Leukocytes, ur, POC Negative Negative Lot Number [id number] Urine 06/19/2025 11:3 4 AM CDT us Eneida Hdez NP POINT OF CARE TEST ORDERABLES Final Result * Urine culture Urine, clean voided (06/19/2025 10:00 AM CDT) [facility] Report Final Report: Less than 100,000 colonies/mL (clinically insignificant growth based on current clinical standards) Comment:Testing performed by : [facility], [address] [place]., [address] Organism (CLINICALLY INSIGNIFICANT GROWTH [facility] Urine, clean voided 06/19/2025 10:00 AM CDT 06/19/2025 7:20 PM CDT Narrative [facility] - 06/21/2025 7:35 AM CDT Testing performed by [facility] Microbiology [facility] ([phone]) us Eneida Hdez NP LAB MICROBIOLOGY - GENERAL ORD ERABLES Final Result [facility] [address] [address] [address] Department [place] [address] * eGFR (06/18/2025 9:28 AM CDT) [facility] eGFR 72 >=60 mL/min/1. 73 m2 Comment: [...] MD LAB BLOOD ORDERABL ES Final Result [place] [address] [facility] Department [place] [address] * CBC without differential (06/18/2025 9:28 AM CDT) WBC 8.96 3.80 - 9.90 K/cumm Hgb 13.6 11.9 - 15.5 g/dL [facility] Hct 40.4 35.6 - 45.5 % [facility] Plt 209 150 - 400 K/cumm [facility] MPV 9.6 9.1 - 12.3 fL [facility] RBC 4.40 3.90 - 5.20 M/cumm [facility] MCV 91.8 81.3 - 96.4 fL [facility] MCH 30.9 27.1 - 33.3 pg [facility] MCHC 33.7 32.3 - 35.7 g/dL [facility] RDW CV 13.0 11.1 - 14.9 % [facility] RDW SD 43.6 35.7 - 48.1 fL [facility] NRBC abs 0.00 0.00 - 0.01 K/cumm [facility] Blood Venous blood specimen / Unknown 06/18/2025 9:28 AM CDT 06/18/2025 11:18 AM CDT Bert Glez MD LAB BLOOD ORDERABL ES Final Result Performing Organization Address [facility] [address] [facility] de Phone Number [address] [address] * Hemoglobin A1c (06/18/2025 9:28 AM CDT) Hgb A1C 5.5 4.0 - 5.6 % Estimated Average Glucose 111 mg/dL [facility] Comment: The ADA recommends reporting an estimated Average Glucose (eAG) with all Hemoglobin A1c results using the equation derived from a study of 507 normal and diabetic adults. Minority populations were underrepresented and children were not included. (Diabetes Care 31:9672-4886, 2008). The eAG is not equivalent to a fasting glucose. Blood Venous blood specimen / Unknown 06/18/2025 9:28 AM CDT 06/18/2025 11:18 AM CDT Bert Glez MD LAB BLOOD ORDERABL ES Final Result Performing Organization Address [facility] [address]/[facility] de Phone Number [address] [address] * (ABNORMAL) Lipid panel (06/18/2025 9:28 AM [...] 3. Mike Alexander et al. FINN Cardiol. 2020 January 03;5(5):540-548. doi: 10.1001/jamacardio.2020.0013 Current Interpretive Data was last revised on 2024. Non-HDL Cholesterol 65 mg/dL [facility] Comment: Interpretive Data Ages < or = [...] revised on 2018. Chol/HDL ratio 3 [facility] Blood Venous blood specimen / Unknown 06/18/2025 9:28 AM CDT 06/18/2025 11:18 AM CDT Bert Glez MD LAB BLOOD ORDERABL ES Final Result [facility] [address] [facility] Department [place] [address] * Comprehensive metabolic panel (06/18/2025 9:28 AM CDT) Sodium 141 135 - 145 mmol/L Potassium, pl 4.1 3.3 - 4.9 mmol/L [facility] Chloride 108 97 - 110 mmol/L [facility] CO2 25 22 - 32 mmol/L [facility] Anion gap 8 2 - 15 mmol/L [facility] BUN 12 6 - 25 mg/dL [facility] Creatinine 0.87 0.60 - 1.10 mg/dL [facility] Glucose 109 70 - 199 mg/dL [facility] Comment: Interpretive Data Fasting glucose >/= [...] 2022. Calcium 9.8 8.5 - 10.3 mg/dL [facility] Bilirubin, total 0.7 0.1 - 1.2 mg/dL [facility] Protein, pl 7.3 6.5 - 8.5 g/dL [facility] Albumin 4.3 3.5 - 5.0 g/dL [facility] Alk phos 124 40 - 130 Units/L [facility] ALT 16 7 - 45 Units/L [facility] AST 20 10 - 45 Units/L [facility] Blood Venous blood specimen / Unknown 06/18/2025 9:28 AM CDT 06/18/2025 11:18 AM CDT Bert Glez MD LAB BLOOD ORDERABL ES Final Result [facility] [address] [facility] Department [place] [address] * eGFR (04/12/2025 11:30 AM CDT) eGFR [...] Godinez MD LAB BLOOD ORDERABLES Final Result [facility] [address] [facility] Department [place] [address] * (ABNORMAL) Differential, auto (04/12/2025 11:30 AM CDT) Neutrophil abs 6.08 1.50 - 6.50 K/cumm Imm gran abs 0.05 0.00 - 0.10 K/cumm [facility] Lymphocyte abs 2.66 0.80 - 3.30 K/cumm [facility] Monocyte abs 0.85(H) 0.20 - 0.80 K/cumm [facility] Eosinophil abs 0.12 0.00 - 0.50 K/cumm [facility] Basophil abs 0.07 0.00 - 0.10 K/cumm [facility] Neutrophil pct 61.9 % [facility] Comment: Interpretive Data Percent cell count reference ranges are not reported, since discordance with absolute values may lead to misinterpretation of CBC data. Current Interpretive Data was last revised on 2017. Imm gran pct 0.5 % [facility] Comment: Interpretive Data Percent cell count reference ranges are not reported, since discordance with absolute values may lead to misinterpretation of CBC data. Current Interpretive Data was last revised on 2017. Lymphocyte pct 27.1 % [facility] Comment: Interpretive Data Percent cell count reference ranges are not reported, since discordance with absolute values may lead to misinterpretation of CBC data. Current Interpretive Data was last revised on 2017. Monocyte pct 8.6 % [facility] Comment: Interpretive Data Percent cell count reference ranges are not reported, since discordance with absolute values may lead to misinterpretation of CBC data. Current Interpretive Data was last revised on 2017. Eosinophil pct 1.2 % [facility] Comment: Interpretive Data Percent cell count reference ranges are not reported, since discordance with absolute values may lead to misinterpretation of CBC data. Current Interpretive Data was last revised on 2017. Basophil pct 0.7 % [facility] Comment: Interpretive Data Percent cell count reference ranges are not reported, since discordance with absolute values may lead to misinterpretation of CBC data. Current Interpretive Data was last revised on 2017. Blood 04/12/2025 11:3 0 AM CDT 04/12/2025 1:47 PM CDT Reji Godinez MD LAB BLOOD ORDERABLES Final Result Performing Organization Address [facility] [address]/[facility] de Phone Number [facility] [address] [place] [address] * (ABNORMAL) CBC with auto differential (04/12/2025 11:30 AM CDT) WBC 9.83 3.80 - 9.90 K/cumm Hgb 14.7 11.9 - 15.5 g/dL [facility] Hct 43.3 35.6 - 45.5 % [facility] Plt 238 150 - 400 K/cumm [facility] MPV 9.6 9.1 - 12.3 fL [facility] RBC 4.65 3.90 - 5.20 M/cumm [facility] MCV 93.1 81.3 - 96.4 fL [facility] MCH 31.6 27.1 - 33.3 pg [facility] MCHC 33.9 32.3 - 35.7 g/dL [facility] RDW CV 13.0 11.1 - 14.9 % [facility] RDW SD 44.1 35.7 - 48.1 fL [facility] NRBC abs 0.02(H) 0.00 - 0.01 K/cumm [facility] Blood 04/12/2025 11:3 0 AM CDT 04/12/2025 1:47 PM CDT Reji Godinez MD LAB BLOOD ORDERABLES Final Result Performing Organization Address [facility] de Phone Number [address] [place] [address] * Basic metabolic panel (04/12/2025 11:30 AM CDT) Sodium 144 135 - 145 mmol/L Potassium, pl 3.9 3.3 - 4.9 mmol/L [facility] Chloride 104 97 - 110 mmol/L [facility] CO2 30 22 - 32 mmol/L [facility] Anion gap 10 2 - 15 mmol/L [facility] BUN 13 6 - 25 mg/dL [facility] Creatinine 0.95 0.60 - 1.10 mg/dL [facility] Glucose 98 70 - 199 mg/dL [facility] Comment: Interpretive Data Fasting glucose >/= [...] 2022. Calcium 10.2 8.5 - 10.3 mg/dL [facility] Blood 04/12/2025 11:3 0 AM CDT 04/12/2025 1:47 PM CDT us Reji Godinez MD LAB BLOOD ORDERABLES Final Result [facility] [address] [facility] Department [place] [address] from Last 3 Months Insurance [facility] Care Teams Packing And Stamping Machine Operator Relationship Specialty Start Date End Date Bert Glez MD PCP - General 04/09/13 Reji Godinez MD [address] [facility] [address] [address] Guest Services Officer Cardiology 04/26/19 Farooq Hitchcock MD [address] [address] Consulting Physician Clinical Cardiac Electrophysiology 11/15/24"
--- OUTSIDE RECORDS SUMMARY | 2025-06-28 09:41 | XMS_ITS | Encounter Summary ---
Author Organization [facility] Facility Care Team Providers Care Rod Puller Name Role Phone Bert Glez MD Primary Care Prov ider Reji Godinez MD Unavailable [phone] Farooq Hitchcock MD Unavailable [phone] Encounter Details Date Type Department Care Team (Latest Contact Info) Description 12/09/2015 Orders Only [facility]INCONV Provider, MD Alexandru [address] [place] [id number] Social History Tobacco Use Types Packs/Day Years Used Date Smoking Tobacco: Every Day Comments:Smoking History Pac ks/day: 0.5 Packs Alcohol Use Standard Drinks/Week Comments Yes 0 (1 standard drink = 0.6 oz pur e alcohol) Comments Unknown Sex and Gender Information Value Date Recorded Sex Assigned at Not on file Legal Sex Female 2:06 AM BOOKKEEPING SERVICE SALES AGENT Gender Identity Not on file Sexual Orientation Not on file documented as of this encounter Plan of Treatment Not on file documented as of this encounter Procedures Procedure Name Priority Date/Time Associated Diagnosis Comments CARDIOLOGY REPORT 08/05/2016 12: 00 AM BOOKKEEPING SERVICE SALES AGENT documented in this encounter Results * CARDIOLOGY REPORT (08/05/2016 12:00 AM BOOKKEEPING SERVICE SALES AGENT) Anatomical Region Laterality Modality Other Narrative 08/05/2016 12:00 AM BOOKKEEPING SERVICE SALES AGENT Ordered by an unspecified provider. Historical Provider [facility] Final Result documented in this encounter Visit Diagnoses Not on filedocumented in this encounter Care Teams Rod Puller Relationship Specialty Start Date End Date Bert Glez MD PCP - General 04/09/13 Reji Godinez MD [address] [facility] [address] [address] Painter And Body Work Cardiology 04/26/19 Farooq Hitchcock MD [address] [address] Consulting Physician Clinical Cardiac Electrophysiology 11/15/24 documented as of this encounter
--- OUTSIDE RECORDS SUMMARY | 2025-06-28 09:41 | XMS_ITS | Encounter Summary ---
Author Organization [facility] Facility Care Team Providers Care Interpretive Program Coordinator Name Role Phone Bert Glez MD Primary Care Prov ider Reji Godinez MD Unavailable [phone] Farooq Hitchcock MD Unavailable [phone] Encounter Details Date Type Department Care Team (Latest Contact Info) Description 12/16/2015 Orders Only [facility] Provider, MD Alexandru [address] [place] [address] Social History Tobacco Use Types Packs/Day Years Used Date Smoking Tobacco: Every Day Comments:Smoking History Pac ks/day: 0.5 Packs Alcohol Use Standard Drinks/Week Comments Yes 0 (1 standard drink = 0.6 oz pur e alcohol) Comments Unknown Sex and Gender Information Value Date Recorded Sex Assigned at Not on file Legal Sex Female 2:06 AM ONLINE ADVERTISING ANALYST Gender Identity Not on file Sexual Orientation Not on file documented as of this encounter Plan of Treatment Not on file documented as of this encounter Procedures Procedure Name Priority Date/Time Associated Diagnosis Comments CARDIOLOGY REPORT 08/05/2016 12: 00 AM ONLINE ADVERTISING ANALYST documented in this encounter Results * CARDIOLOGY REPORT (08/05/2016 12:00 AM ONLINE ADVERTISING ANALYST) Anatomical Region Laterality Modality Other Narrative 08/05/2016 12:00 AM ONLINE ADVERTISING ANALYST Ordered by an unspecified provider. Historical Provider [facility] Final Result documented in this encounter Visit Diagnoses Not on filedocumented in this encounter Care Teams Interpretive Program Coordinator Relationship Specialty Start Date End Date Bert Glez MD PCP - General 04/09/13 Reji Godinez MD [address] [facility] [address] [address] Hospital Personnel Director Cardiology 04/26/19 Farooq Hitchcock MD [address] [address] Consulting Physician Clinical Cardiac Electrophysiology 11/15/24 documented as of this encounter
--- OUTSIDE RECORDS SUMMARY | 2025-06-28 09:41 | XMS_ITS | Encounter Summary ---
Author Organization [facility] Healthcare Address [address] [place] [address] Care Team Providers Care Telecom Assistant Name Role Phone Bert Glez MD Primary Care Prov ider Reji Godinez MD Unavailable [phone] Farooq Hitchcock MD Unavailable [phone] Encounter Details Date Type Department Care Team (Late st Contact Info) Description 06/19/2024 Orders Only [facility] Health Information Management [address] [place] [address] Scanning, Provider Social History Tobacco Use Types Packs/Day Years Used Date Smoking Tobacco: Former Smokeless Tobacco: Never Comments:Smoking History Pac ks/day: 0.5 Packs Alcohol Use Standard Drinks/Week Comments Yes 0 (1 standard drink = 0.6 oz pur e alcohol) Comments No Sex and Gender Information Value Date Recorded Sex Assigned at Not on file Legal Sex Female 2:06 AM X RAY CONSULTANT Gender Identity Not on file Sexual Orientation [...] on filedocumented in this encounter Care Teams Telecom Assistant Relationship Specialty Start Date End Date Bert Glez MD PCP - General 04/09/13 Reji Godinez MD [address] [facility] [address] [address] Garment Liner Cardiology 04/26/19 Farooq Hitchcock MD [address] [address] Consulting Physician Clinical Cardiac Electrophysiology 11/15/24 documented as of this encounter
--- OUTSIDE RECORDS SUMMARY | 2025-06-28 09:41 | XMS_ITS | Encounter Summary ---
Author Organization [facility] Facility Care Team Providers Care Head Cleaning Porter Name Role Phone Bert Glez MD Primary Care Prov ider Reji Godinez MD Unavailable [phone] Farooq Hitchcock MD Unavailable [phone] Encounter Details Date Type Department Care Team (Latest Contact Info) Description 09/16/2017 Orders Only [facility] ProviderAlexandru MD [address] [place] [address] Social History Tobacco Use Types Packs/Day Years Used Date Smoking Tobacco: Every Day Comments:Smoking History Pac ks/day: 0.5 Packs Alcohol Use Standard Drinks/Week Comments Yes 0 (1 standard drink = 0.6 oz pur e alcohol) Comments Unknown Sex and Gender Information Value Date Recorded Sex Assigned at Not on file Legal Sex Female 2:06 AM PHOTOGRAPHY AND PRINTS CURATOR Gender Identity Not on file Sexual Orientation Not on file documented as of this encounter Plan of Treatment Not on file documented as of this encounter Procedures Procedure Name Priority Date/Time Associated Diagnosis Comments PROCEDURE - RESULT 09/16/2017 12 :00 AM PHOTOGRAPHY AND PRINTS CURATOR documented in this encounter Results * PROCEDURE - RESULT (09/16/2017 12:00 AM PHOTOGRAPHY AND PRINTS CURATOR) Narrative 09/16/2017 12:00 AM PHOTOGRAPHY AND PRINTS CURATOR Ordered by an unspecified provider. Historical Provider Final Res ult documented in this encounter Visit Diagnoses Not on filedocumented in this encounter Care Teams Head Cleaning Porter Relationship Specialty Start Date End Date Bert Glez MD PCP - General 04/09/13 Reji Godinez MD [address] [facility] [address] [address] Avian Keeper Cardiology 04/26/19 Farooq Hitchcock MD [address] [address] Consulting Physician Clinical Cardiac Electrophysiology 11/15/24 documented as of this encounter
--- OUTSIDE RECORDS SUMMARY | 2025-06-28 09:41 | XMS_ITS | Encounter Summary ---
Author Organization [facility] Facility Care Team Providers Care Piece Goods Clerk Name Role Phone Bert Glez MD Primary Care Prov ider Reji Godinez MD Unavailable [phone] Farooq Hitchcock MD Unavailable Encounter Details Date Type Department Care Team (Latest Contact Info) Description 12/19/2015 Orders Only [facility] Provider, MD Alexandru [address] [place] [address] Social History Tobacco Use Types Packs/Day Years Used Date Smoking Tobacco: Every Day Comments:Smoking History Pac ks/day: 0.5 Packs Alcohol Use Standard Drinks/Week Comments Yes 0 (1 standard drink = 0.6 oz pur e alcohol) Comments Unknown Sex and Gender Information Value Date Recorded Sex Assigned at Not on file Legal Sex Female 2:06 AM FARMWORKER FIELD CROP Gender Identity Not on file Sexual Orientation Not on file documented as of this encounter Plan of Treatment Not on file documented as of this encounter Procedures Procedure Name Priority Date/Time Associated Diagnosis Comments CARDIOLOGY REPORT 08/05/2016 12: 00 AM FARMWORKER FIELD CROP documented in this encounter Results * CARDIOLOGY REPORT (08/05/2016 12:00 AM FARMWORKER FIELD CROP) Anatomical Region Laterality Modality Other Narrative 08/05/2016 12:00 AM FARMWORKER FIELD CROP Ordered by an unspecified provider. Historical Provider [facility] Final Result documented in this encounter Visit Diagnoses Not on filedocumented in this encounter Care Teams Piece Goods Clerk Relationship Specialty Start Date End Date Bert Glez MD PCP - General 04/09/13 Reji Godinez MD [address] [facility] [address] [address] Obstetrics Specialist Cardiology 04/26/19 Farooq Hitchcock MD [address] [address] Consulting Physician Clinical Cardiac Electrophysiology 11/15/24 documented as of this encounter
[2025-06-28 10:24] LABS: Hematocrit 40.2 % (37.0-47.0); Hemoglobin 13.5 g/dL (12.0-15.0); Immature Granulocyte Percent A 0.5 % (0-0.5); Lymphocytes Absolute Auto 1.31 K/mm3 (0.9-3.2); Mean Corpuscular HGB Conc 33.6 g/dl (32-36); Mean Corpuscular Hemoglobin 30.4 pg (26-34); Mean Corpuscular Volume 90.5 fl (80-100); Nucleated Red Blood Cells Absolute Auto 0.000 K/mm3 (0.0-0.012); Nucleated Red Blood Cells Perc 0.0 % (0.0-0.2); Platelet Count Result 226 k/mm3 (150-375); Red Blood Count 4.44 M/mm3 (4.2-5.4); White Blood Count 6.6 K/mm3 (4.5-10.0)
[2025-06-28 10:27] LABS: Add Urine Microscopic? YES; Appearance Urine Clear (Clear); Glucose Urine UA Negative (Negative); Leukocyte Esterase Ur Trace LEU/UL (Negative); Nitrate Urine Negative (Negative); Non Pathogenic Casts 0-2; Specific Grav Ur 1.013 (1.001-1.035)
[2025-06-28 10:30] LABS: Alanine Aminotransferase 31 U/L (6-35); Albumin Level 4.5 g/dL (3.5-5.1); Alkaline Phosphatase 109 U/L (38-126); Anion Gap 13 mmol/L (4-12); Aspartate Amino Transferase 40 U/L (14-36); Bilirubin,Total 0.5 mg/dL (0.2-1.3); Blood Urea Nitrogen 8 mg/dL (7-17); Calcium 9.5 mg/dL (8.4-10.2); Carbon Dioxide 19 mmol/L (22-30); Chloride 109 mmol/L (98-107); Estimated CRCL calculation 42 ml/min; Estimated Glomerular Filt Rate 50; Glucose 131 mg/dL (65-110); Lipase 125 U/L (23-300); Potassium 3.6 mmol/L (3.4-5.0); Sodium 141 mmol/L (137-145); Total Protein 7.8 g/dL (6.3-8.2)
--- OUTSIDE RECORDS SUMMARY | 2025-06-28 11:20 | XMS_ITS | Encounter Summary ---
Author Organization [facility] Facility Care Team Providers Care Welder Fitter Name Role Phone Bert Glez MD Primary Care Prov ider Reji Godinez MD Unavailable [phone] Farooq Hitchcock MD Unavailable [phone] Encounter Details Date Type Department Care Team (Latest Contact Info) Description 12/19/2015 Orders Only [facility] Provider, MD Alexandru [address] [place] [address] Social History Tobacco Use Types Packs/Day Years Used Date Smoking Tobacco: Every Day Comments:Smoking History Pac ks/day: 0.5 Packs Alcohol Use Standard Drinks/Week Comments Yes 0 (1 standard drink = 0.6 oz pur e alcohol) Comments Unknown Sex and Gender Information Value Date Recorded Sex Assigned at Not on file Legal Sex Female 2:06 AM FLOTATION TENDER Gender Identity Not on file Sexual Orientation Not on file documented as of this encounter Plan of Treatment Not on file documented as of this encounter Procedures Procedure Name Priority Date/Time Associated Diagnosis Comments CARDIOLOGY REPORT 08/05/2016 12: 00 AM FLOTATION TENDER documented in this encounter Results * CARDIOLOGY REPORT (08/05/2016 12:00 AM FLOTATION TENDER) Anatomical Region Laterality Modality Other Narrative 08/05/2016 12:00 AM FLOTATION TENDER Ordered by an unspecified provider. Historical Provider [facility] Final Result documented in this encounter Visit Diagnoses Not on filedocumented in this encounter Care Teams Welder Fitter Relationship Specialty Start Date End Date Bert Glez MD PCP - General 04/09/13 Reji Godinez MD [address] [facility] [address] [address] Buzzle Buffer Cardiology 04/26/19 Farooq Hitchcock MD [address] [address] Consulting Physician Clinical Cardiac Electrophysiology 11/15/24 documented as of this encounter
--- OUTSIDE RECORDS SUMMARY | 2025-06-28 11:20 | XMS_ITS | Encounter Summary ---
Author Organization [facility] Facility Care Team Providers Care Broadcast Traffic Coordinator Name Role Phone Bert Glez MD Primary Care Prov ider Reji Godinez MD Unavailable [phone] Farooq Hitchcock MD Unavailable [phone] Encounter Details Date Type Department Care Team (Latest Contact Info) Description 12/16/2015 Orders Only [facility] Provider, MD Alexandru [address] [place] [address] Social History Tobacco Use Types Packs/Day Years Used Date Smoking Tobacco: Every Day Comments:Smoking History Pac ks/day: 0.5 Packs Alcohol Use Standard Drinks/Week Comments Yes 0 (1 standard drink = 0.6 oz pur e alcohol) Comments Unknown Sex and Gender Information Value Date Recorded Sex Assigned at Not on file Legal Sex Female 2:06 AM CANDY PACKER Gender Identity Not on file Sexual Orientation Not on file documented as of this encounter Plan of Treatment Not on file documented as of this encounter Procedures Procedure Name Priority Date/Time Associated Diagnosis Comments CARDIOLOGY REPORT 08/05/2016 12: 00 AM CANDY PACKER documented in this encounter Results * CARDIOLOGY REPORT (08/05/2016 12:00 AM CANDY PACKER) Anatomical Region Laterality Modality Other Narrative 08/05/2016 12:00 AM CANDY PACKER Ordered by an unspecified provider. Historical Provider [facility] Final Result documented in this encounter Visit Diagnoses Not on filedocumented in this encounter Care Teams Broadcast Traffic Coordinator Relationship Specialty Start Date End Date Bert Glez MD PCP - General 04/09/13 Reji Godinez MD [address] [facility] [address] [address] Director School Of Nursing Cardiology 04/26/19 Farooq Hitchcock MD [address] [address] Consulting Physician Clinical Cardiac Electrophysiology 11/15/24 documented as of this encounter
--- OUTSIDE RECORDS SUMMARY | 2025-06-28 11:20 | XMS_ITS | Encounter Summary ---
Author Organization [facility] Facility Care Team Providers Care Ignition Expert Name Role Phone Bert Glez MD Primary Care Prov ider Reji Godinez MD Unavailable [phone] Farooq Hitchcock MD Unavailable [phone] Encounter Details Date Type Department Care Team (Latest Contact Info) Description 09/16/2017 Orders Only [facility] ProviderAlexandru MD [address] [place] [address] Social History Tobacco Use Types Packs/Day Years Used Date Smoking Tobacco: Every Day Comments:Smoking History Pac ks/day: 0.5 Packs Alcohol Use Standard Drinks/Week Comments Yes 0 (1 standard drink = 0.6 oz pur e alcohol) Comments Unknown Sex and Gender Information Value Date Recorded Sex Assigned at Not on file Legal Sex Female 2:06 AM HAND FLATWORK FINISHER Gender Identity Not on file Sexual Orientation Not on file documented as of this encounter Plan of Treatment Not on file documented as of this encounter Procedures Procedure Name Priority Date/Time Associated Diagnosis Comments PROCEDURE - RESULT 09/16/2017 12 :00 AM HAND FLATWORK FINISHER documented in this encounter Results * PROCEDURE - RESULT (09/16/2017 12:00 AM HAND FLATWORK FINISHER) Narrative 09/16/2017 12:00 AM HAND FLATWORK FINISHER Ordered by an unspecified provider. Historical Provider Final Res ult documented in this encounter Visit Diagnoses Not on filedocumented in this encounter Care Teams Ignition Expert Relationship Specialty Start Date End Date Bert Glez MD PCP - General 04/09/13 Reji Godinez MD [address] [facility] [address] [address] Learning Support Services Director Cardiology 04/26/19 Farooq Hitchcock MD [address] [address] Consulting Physician Clinical Cardiac Electrophysiology 11/15/24 documented as of this encounter
--- OUTSIDE RECORDS SUMMARY | 2025-06-28 11:20 | XMS_ITS | Encounter Summary ---
Author Organization [facility] Healthcare Address [address] [place] [address] Care Team Providers Care Flight Security Specialist Name Role Phone Bert Glez MD Primary Care Prov ider Reji Godinze MD Unavailable [phone] Farooq Hitchcock MD Unavailable [phone] Encounter Details Date Type Department Care Team (Late st Contact Info) Description 06/19/2024 Orders Only [facility] Health Information Management [address] [place] [address] Scanning, Provider Social History Tobacco Use Types Packs/Day Years Used Date Smoking Tobacco: Former Smokeless Tobacco: Never Comments:Smoking History Pac ks/day: 0.5 Packs Alcohol Use Standard Drinks/Week Comments Yes 0 (1 standard drink = 0.6 oz pur e alcohol) Comments No Sex and Gender Information Value Date Recorded Sex Assigned at Not on file Legal Sex Female 2:06 AM PATIENT PORTAL REPRESENTATIVE Gender Identity Not on file Sexual Orientation [...] on filedocumented in this encounter Care Teams Flight Security Specialist Relationship Specialty Start Date End Date Bert Glez MD PCP - General 04/09/13 Reji Godinez MD [address] [facility] [address] [address] Registered Safety Engineer Cardiology 04/26/19 Farooq Hitchcock MD [address] [address] Consulting Physician Clinical Cardiac Electrophysiology 11/15/24 documented as of this encounter
--- OUTSIDE RECORDS SUMMARY | 2025-06-28 11:20 | XMS_ITS | Encounter Summary ---
Author Organization [facility] Healthcare Address [address] [place] [address] Care Team Providers Care Biometry Teacher Name Role Phone Bert Glez MD Primary Care Prov ider Reji Godinez MD Unavailable [phone] Farooq Hitchcock MD Unavailable [phone] Encounter Details Date Type Department Care Team (Late st Contact Info) Description 06/21/2025 Results Follow-Up [facility] [place] [address] [place] [address] Jarret Kellogg NP [address] [place] [address] [place] [address] Urine culture Urine, clean voided [...] on file Legal Sex Female 2:06 AM BODY JOINER Gender Identity Not on file Sexual Orientation Not on file Occupation Industry Job Start Date Job End Date retired Not on file Not on file Not on file documented as of this encounter Miscellaneous Notes * Result Encounter Note - Maria Elena Rodas MA - 06/22/2025 11:28 AM CDT Patient has read [employer] message. documented in this encounter Plan of Treatment Not on file documented as of this encounter Visit Diagnoses Not on filedocumented in this encounter Care Teams Biometry Teacher Relationship Specialty Start Date End Date Bert Glez MD PCP - General 04/09/13 Reji Godinez MD [address] [facility] [address] [address] Home Health Attendant Cardiology 04/26/19 Farooq Hitchcock MD [address] [address] Consulting Physician Clinical Cardiac Electrophysiology 11/15/24 documented as of this encounter
--- OUTSIDE RECORDS SUMMARY | 2025-06-28 11:20 | XMS_ITS | Encounter Summary ---
Author Organization [facility] Facility Care Team Providers Care Cover Maker Name Role Phone Bert Glez MD Primary Care Prov ider Reji Godinez MD Unavailable [phone] Farooq Hitchcock MD Unavailable [phone] Encounter Details Date Type Department Care Team (Latest Contact Info) Description 12/09/2015 Orders Only [facility] Provider, MD Alexandru [address] [place] [address] Social History Tobacco Use Types Packs/Day Years Used Date Smoking Tobacco: Every Day Comments:Smoking History Pac ks/day: 0.5 Packs Alcohol Use Standard Drinks/Week Comments Yes 0 (1 standard drink = 0.6 oz pur e alcohol) Comments Unknown Sex and Gender Information Value Date Recorded Sex Assigned at Not on file Legal Sex Female 2:06 AM I O PSYCHOLOGIST Gender Identity Not on file Sexual Orientation Not on file documented as of this encounter Plan of Treatment Not on file documented as of this encounter Procedures Procedure Name Priority Date/Time Associated Diagnosis Comments CARDIOLOGY REPORT 08/05/2016 12: 00 AM I O PSYCHOLOGIST documented in this encounter Results * CARDIOLOGY REPORT (08/05/2016 12:00 AM I O PSYCHOLOGIST) Anatomical Region Laterality Modality Other Narrative 08/05/2016 12:00 AM I O PSYCHOLOGIST Ordered by an unspecified provider. Historical Provider [facility] Final Result documented in this encounter Visit Diagnoses Not on filedocumented in this encounter Care Teams Cover Maker Relationship Specialty Start Date End Date Bert Glez MD PCP - General 04/09/13 Reji Godinez MD [address] [facility] [address] [address] Umbrella Tipper Cardiology 04/26/19 Farooq Hitchcock MD [address] [address] Consulting Physician Clinical Cardiac Electrophysiology 11/15/24 documented as of this encounter
--- OUTSIDE RECORDS SUMMARY | 2025-06-28 11:20 | XMS_ITS | Clinical Summary ---
Author Organization [facility] Address [address] [place] [address] Care Team Providers Care Clockmaker Apprentice Name Role Phone Bert Glez MD Primary Care Prov ider Reji Godinez MD Unavailable [phone] Farooq Hitchcock MD Unavailable [phone] Allergies Active Allergy Reactions Criticality Noted Date Comments Acetylcysteine Unknown 05/01/2019 Adhesive Blisters High 06/03/2023 Celecoxib Hives,Itching Medium 05/22/2021 Ciprofloxacin Joint pain,Muscle pain Medium 05/22/2021 Lisinopril Cough Low 04/18/2020 Medications fish oil-fat acid [id number] (OMEGA 3-6-9) 1,200 mg (400 [id number]) capsule take 1 by Oral route every [...] Department Care Team Description 06/21/2025 Results Follow-Up [facility] at [address] [address] Jarret Kellogg NP Urine culture Urine, clean voided 06/19/2025 11:45 AM CDT Office Visit [facility] at [address] [address] Eneida Hdez NP Lower abdominal pain (Primary Dx); Pelvic pain 06/19/2025 11:34 AM CDT - 06/19/2025 11:59 PM CDT Hospital Encounter [facility] [address] [place] [address] Pelvic pain Discharge Disposition: Discharge to home or self care 06/18/2025 9:20 AM CDT Lab [address] [address] Blood glucose elevated (Primary Dx); Essential hypertension, malignant; Paroxysmal atrial fibrillation (HCC); supervisor intermediates (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; Impaired fasting glucose 05/11/2025 Results Follow-Up [facility] Cardiology [address] [facility] [address] [place] [address] Reji Godinez MD Basic metabolic panel, CBC with auto differential, Differential, auto, eGFR 04/23/2025 1:45 PM CDT Office Visit [facility] Family Medicine at [place] [id number] [facility] [address] [place] [address] Dennis Mao MD Class 2 obesity due to excess calories without serious comorbidity with body mass index (BMI) of 35.0 to 35.9 in adult 04/22/2025 11:30 AM CDT Office Visit [facility] Care at [address] [id number] Eneida Hdez, YARITZA Non-recurrent acute suppurative otitis media of left ear without spontaneous rupture of tympanic membrane (Primary Dx) 04/15/2025 10:30 AM CDT Office Visit [facility] Orthopedics and Sports Medicine [address] [place] [address] [address] [place] [address] Kia Jurado NP Lumbar facet arthropathy, inferior; Degeneration of intervertebral disc of lumbar region, mild L3-L4 and severe L5-S1 with discogenic back pain and lower extremity pain 04/12/2025 11:20 AM CDT Lab [address] [address] Paroxysmal atrial fibrillation (HCC); Coronary artery disease involving jackson coronary artery of jackson heart without angina pectoris; Primary hypertension from [...] ATRIAL FIBRILLATION (A-FIB) VIA PULMONARY VEIN ISOLATION 01966; Surgeon: Farooq Hitchcock MD; Location: 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 Gender Identity Not on file Sexual [...] Tdap) 07/19/2027 Medical Devices Implanted Type Area Motion Picture Photographer Device Identifier Shelf Expiration Date Model / Serial / Lot Ward Vascular System Closure Repair Femoral Artery Suture Mediated Perclose Prostyle 46174-28 - [id number] - [id number] Implanted:Qty: 1 on 10/18/2024 by Farooq Hitchcock MD at [facility] Vascular Closure Device [employer] 08/04/2026 98174-29 / [id number] / [id number] [employer] V[employer] System Closure Repair Femoral Artery Suture Mediated Perclose Prostyle 14412-90 - [id number] - [id number] Implanted:Qty: 1 on 10/18/2024 by Farooq Hitchcock MD at [facility] Vascular Closure Device [employer] 08/04/2026 39936-59 / [id number] / [id number] [employer] Device Vascular Closure Vascade Mvp Xl 10-12fr Venous Strl 800-1012xl - [id number] - [id number] Implanted:Qty: 1 on 10/18/2024 by Farooq Hitchcock MD at [facility] Vascular Closure Device [employer] 05/28/2026 [id number] L / [id number] / [id number] [employer] Device Closure Vascade Od5 Fr Femoral Artery [id number] - [id number] - [id number] Implanted:Qty: 1 on 10/18/2024 by Farooq Hitchcock MD at [facility] Vascular Closure Device [employer] 06/27/2026 [id number] -05U / [id number] / [id number] [employer] Device Vascular Closure Femoral Artery Bioabsorbable Dual Method Vascade 6-7fr Collagen [id number] - [id number] - [id number] Implanted:Qty: 1 on 10/18/2024 by Farooq Hitchcock MD at [facility] Vascular Closure Device [employer] 07/02/2026 [id number]- 05U / [id number] / [id number] Procedures Procedure Name Priority Date/Time Associated Diagnosis Comments POCT URINALYSIS DIPSTICK Routine 06/19/2025 11:34 AM CDT Pelvic pain URINE CULTURE Routine 06/19/2025 10:00 AM CDT Pelvic pain EGFR Routine 06/18/2025 9:28 AM CDT Blood glucose elevated Essential hypertension, malignant Paroxysmal atrial fibrillation (HCC) supervisor intermediates (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 Impaired fasting glucose CBC WITHOUT DIFFERENTIAL Routine 06/18/2025 9:28 AM CDT Blood glucose elevated Essential hypertension, malignant Paroxysmal atrial fibrillation (HCC) supervisor intermediates (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 Impaired fasting glucose LIPID PANEL Routine 06/18/2025 9:28 AM CDT Blood glucose elevated Essential hypertension, malignant Paroxysmal atrial fibrillation (HCC) correction (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 Impaired fasting glucose COMPREHENSIVE METABOLIC PANEL Routine 06/18/2025 9:28 AM CDT Blood glucose elevated Essential hypertension, malignant Paroxysmal atrial fibrillation (HCC) supervisor intermediates (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 Impaired fasting glucose HEMOGLOBIN A1C Routine 06/18/2025 9:28 AM CDT Blood glucose elevated Essential hypertension, malignant Paroxysmal atrial fibrillation (HCC) correction (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 Impaired fasting glucose EGFR Routine 04/12/2025 11:30 AM CDT Paroxysmal atrial fibrillation (HCC) Coronary artery disease involving jackson coronary artery of jackson heart without angina pectoris Primary hypertension DIFFERENTIAL AUTO Routine 04/12/2025 11: 30 AM CDT Paroxysmal atrial fibrillation (HCC) Coronary artery disease involving jackson coronary artery of jackson heart without angina pectoris Primary hypertension CBC WITH AUTO DIFFERENTIAL Routine 04/12/2025 11:30 AM CDT Paroxysmal atrial fibrillation (HCC) Coronary artery disease involving jackson coronary artery of jackson heart without angina pectoris Primary hypertension BASIC METABOLIC PANEL Routine 04/12/2025 11:30 AM CDT Paroxysmal atrial fibrillation (HCC) Coronary artery disease involving jackson coronary artery of jackson heart without angina pectoris Primary hypertension from Last 3 Months Results * (ABNORMAL) POCT urinalysis dipstick (06/19/2025 11:34 AM CDT) [facility] Color, Urine, POC Yellow Clarity, ur, POC Cloudy(A) Clear Glucose, ur, POC Negative Negative Bilirubin, ur, POC Negative Negative Ketones, ur, POC Negative Negative Specific [place], POC 1.015 1.003 - 1.030 Blood, ur, POC Hemolyzed, trace(A) Negative pH, ur, POC 5.5 5.0 - 8.0 Protein, ur, POC Negative Negative Urobilinogen, urine, POC 0.2 0.2 - 1.0 mg/dL Nitrite, ur, POC Negative Negative Leukocytes, ur, POC Negative Negative Lot Number [id number] Urine 06/19/2025 11:3 4 AM CDT us Eneida Hdez NP POINT OF CARE TEST ORDERABLES Final Result * Urine culture Urine, clean voided (06/19/2025 10:00 AM CDT) [facility] Report Final Report: Less than 100,000 colonies/mL (clinically insignificant growth based on current clinical standards) Comment:Testing performed by : [facility], [address] [place]., [address] Organism (CLINICALLY INSIGNIFICANT GROWTH [facility] Urine, clean voided 06/19/2025 10:00 AM CDT 06/19/2025 7:20 PM CDT Narrative [facility] - 06/21/2025 7:35 AM CDT Testing performed by [facility] ([phone]) us Eneida Hdez NP LAB MICROBIOLOGY - GENERAL ORD ERABLES Final Result [facility] [address] Department [place] [address] * eGFR (06/18/2025 9:28 AM CDT) [facility] eGFR 72 >=60 mL/min/1. 73 m2 Comment: [...] MD LAB BLOOD ORDERABL ES Final Result [place] [id number] [facility] Department [place] [address] * CBC without differential (06/18/2025 9:28 AM CDT) WBC 8.96 3.80 - 9.90 K/cumm Hgb 13.6 11.9 - 15.5 g/dL [facility] Hct 40.4 35.6 - 45.5 % [facility] Plt 209 150 - 400 K/cumm [facility] MPV 9.6 9.1 - 12.3 fL [facility] RBC 4.40 3.90 - 5.20 M/cumm [facility] MCV 91.8 81.3 - 96.4 fL [facility] MCH 30.9 27.1 - 33.3 pg [facility] MCHC 33.7 32.3 - 35.7 g/dL [facility] RDW CV 13.0 11.1 - 14.9 % [facility] RDW SD 43.6 35.7 - 48.1 fL [facility] NRBC abs 0.00 0.00 - 0.01 K/cumm [facility] Blood Venous blood specimen / Unknown 06/18/2025 9:28 AM CDT 06/18/2025 11:18 AM CDT Bert Glez MD LAB BLOOD ORDERABL ES Final Result Performing Organization Address [facility] de Phone Number [address] [address] * Hemoglobin A1c (06/18/2025 9:28 AM CDT) Hgb A1C 5.5 4.0 - 5.6 % Estimated Average Glucose 111 mg/dL [facility] Comment: The ADA recommends reporting an estimated Average Glucose (eAG) with all Hemoglobin A1c results using the equation derived from a study of 507 normal and diabetic adults. Minority populations were underrepresented and children were not included. (Diabetes Care 31:7549-7774, 2008). The eAG is not equivalent to a fasting glucose. Blood Venous blood specimen / Unknown 06/18/2025 9:28 AM CDT 06/18/2025 11:18 AM CDT Bert Glez MD LAB BLOOD ORDERABL ES Final Result Performing Organization Address [facility] de Phone Number [address] [address] * (ABNORMAL) Lipid panel (06/18/2025 9:28 AM [...] revised on 2024. Non-HDL Cholesterol 65 mg/dL [facility] [place] Comment: Interpretive Data Ages < or = [...] MD LAB BLOOD ORDERABL ES Final Result [facility] [address] [facility] Department [place] [address] * Comprehensive metabolic panel (06/18/2025 9:28 AM CDT) Sodium 141 135 - 145 mmol/L Potassium, pl 4.1 3.3 - 4.9 mmol/L [facility] Chloride 108 97 - 110 mmol/L [facility] CO2 25 22 - 32 mmol/L [facility] Anion gap 8 2 - 15 mmol/L [facility] BUN 12 6 - 25 mg/dL [facility] Creatinine 0.87 0.60 - 1.10 mg/dL [facility] Glucose 109 70 - 199 mg/dL [facility] Comment: Interpretive Data Fasting glucose >/= 126 [...] 2022. Calcium 9.8 8.5 - 10.3 mg/dL [facility] Bilirubin, total 0.7 0.1 - 1.2 mg/dL [facility] Protein, pl 7.3 6.5 - 8.5 g/dL [facility] Albumin 4.3 3.5 - 5.0 g/dL [facility] Alk phos 124 40 - 130 Units/L [facility] ALT 16 7 - 45 Units/L [facility] AST 20 10 - 45 Units/L [facility] Blood Venous blood specimen / Unknown 06/18/2025 9:28 AM CDT 06/18/2025 11:18 AM CDT Bert Glez MD LAB BLOOD ORDERABL ES Final Result [facility] [address] [facility] Department [place] [address] * eGFR (04/12/2025 11:30 AM CDT) eGFR [...] MD LAB BLOOD ORDERABLES Final Result [facility] [address] [facility] Department [place] [address] * (ABNORMAL) Differential, auto (04/12/2025 11:30 AM CDT) Neutrophil abs 6.08 1.50 - 6.50 K/cumm Imm gran abs 0.05 0.00 - 0.10 K/cumm [facility] Lymphocyte abs 2.66 0.80 - 3.30 K/cumm [facility] Monocyte abs 0.85(H) 0.20 - 0.80 K/cumm [facility] Eosinophil abs 0.12 0.00 - 0.50 K/cumm [facility] Basophil abs 0.07 0.00 - 0.10 K/cumm [facility] Neutrophil pct 61.9 % [facility] Comment: Interpretive Data Percent cell count reference ranges are not reported, since discordance with absolute values may lead to misinterpretation of CBC data. Current Interpretive Data was last revised on 2017. Imm gran pct 0.5 % [facility] Comment: Interpretive Data Percent cell count reference ranges are not reported, since discordance with absolute values may lead to misinterpretation of CBC data. Current Interpretive Data was last revised on 2017. Lymphocyte pct 27.1 % [facility] Comment: Interpretive Data Percent cell count reference ranges are not reported, since discordance with absolute values may lead to misinterpretation of CBC data. Current Interpretive Data was last revised on 2017. Monocyte pct 8.6 % [facility] Comment: Interpretive Data Percent cell count reference ranges are not reported, since discordance with absolute values may lead to misinterpretation of CBC data. Current Interpretive Data was last revised on 2017. Eosinophil pct 1.2 % [facility] Comment: Interpretive Data Percent cell count reference ranges are not reported, since discordance with absolute values may lead to misinterpretation of CBC data. Current Interpretive Data was last revised on 2017. Basophil pct 0.7 % [facility] Comment: Interpretive Data Percent cell count reference ranges are not reported, since discordance with absolute values may lead to misinterpretation of CBC data. Current Interpretive Data was last revised on 2017. Blood 04/12/2025 11:3 0 AM CDT 04/12/2025 1:47 PM CDT Reji Godinez MD LAB BLOOD ORDERABLES Final Result Performing Organization Address [facility] de Phone Number [facility] [address] [employer] [address] * (ABNORMAL) CBC with auto differential (04/12/2025 11:30 AM CDT) WBC 9.83 3.80 - 9.90 K/cumm Hgb 14.7 11.9 - 15.5 g/dL [facility] Hct 43.3 35.6 - 45.5 % [facility] Plt 238 150 - 400 K/cumm [facility] MPV 9.6 9.1 - 12.3 fL [facility] RBC 4.65 3.90 - 5.20 M/cumm [facility] MCV 93.1 81.3 - 96.4 fL [facility] MCH 31.6 27.1 - 33.3 pg [facility] MCHC 33.9 32.3 - 35.7 g/dL [facility] RDW CV 13.0 11.1 - 14.9 % [facility] RDW SD 44.1 35.7 - 48.1 fL [facility] NRBC abs 0.02(H) 0.00 - 0.01 K/cumm [facility] Blood 04/12/2025 11:3 0 AM CDT 04/12/2025 1:47 PM CDT Reji Godinez MD LAB BLOOD ORDERABLES Final Result Performing Organization Address [facility] de Phone Number [address] [employer] [place] [address] * Basic metabolic panel (04/12/2025 11:30 AM CDT) Sodium 144 135 - 145 mmol/L Potassium, pl 3.9 3.3 - 4.9 mmol/L [facility] Chloride 104 97 - 110 mmol/L [facility] CO2 30 22 - 32 mmol/L [facility] Anion gap 10 2 - 15 mmol/L [facility] BUN 13 6 - 25 mg/dL [facility] Creatinine 0.95 0.60 - 1.10 mg/dL [facility] Glucose 98 70 - 199 mg/dL [facility] Comment: Interpretive Data Fasting glucose >/= 126 [...] 2022. Calcium 10.2 8.5 - 10.3 mg/dL [facility] Blood 04/12/2025 11:3 0 AM CDT 04/12/2025 1:47 PM CDT us Reji Godinez MD LAB BLOOD ORDERABLES Final Result [facility] [address] [facility] Department [place] [address] from Last 3 Months Insurance [facility] Care Teams Clockmaker Apprentice Relationship Specialty Start Date End Date Bert Glez MD PCP - General 04/09/13 Reji Godinez MD [address] [address] Blister Rust Eradicator Cardiology 04/26/19 Farooq Hitchcock MD [address] [address] Consulting Physician Clinical Cardiac Electrophysiology 11/15/24
[2025-06-28] MEDS: cefTRIAXone 1 GM in SODIUM CHLORIDE 0.9% IV 50 ML 100 ML IVPB (12:24)
[2025-06-28 12:25] VITALS: BP 169/82; PULSE 57; RESP 14; O2SAT 98
--- NOTE | 2025-06-28 12:29 | ED.ABDPAIN ---
HPI - Abdominal Pain General Chief Complaint: Abdominal Pain Stated Complaint: Diverticulitis Time Seen by Provider: 06/28/25 09:38 History of Present Illness HPI narrative: Patient is a 69-year-old female who presents ER with left lower quadrant abdominal pain. Ongoing for 2 weeks. She has been on 2 rounds of antibiotics, currently trying to complete her 2nd round. Originally Augmentin but now metronidazole and Bactrim. No fevers or chills. No significant diarrhea but pain is continuing to increase. She has had a couple of CT scans that show uncomplicated diverticulitis. She has tried Tylenol for pain. Related Data Home Medications ?Medication ?Instructions ?Recorded ?Confirmed ?Last Taken ?Type irbesartan 75 mg tablet 75 mg PO HS 05/05/21 06/28/25 06/27/25 History atorvastatin 20 mg tablet 20 mg PO HS 03/17/22 06/28/25 06/27/25 History ezetimibe 10 mg tablet 10 mg PO HS 03/17/22 06/28/25 06/27/25 History Fish Oil 1 cap PO QAM 07/08/22 06/28/25 06/28/25 History gabapentin 300 mg capsule 600 mg PO HS 06/19/24 06/28/25 06/27/25 History ipratropium bromide 42 mcg (0.06 2 spray intranasal DAILY 06/19/24 06/28/25 06/28/25 History %) nasal spray rivaroxaban 20 mg tablet (Xarelto) 20 mg PO HS 06/19/24 06/28/25 06/27/25 History topiramate 50 mg tablet 50 mg PO BID 06/19/25 06/28/25 06/28/25 History metoprolol succinate 25 mg 50 mg PO BID 06/28/25 06/28/25 06/28/25 History tablet,extended release 24 hr (Toprol XL) Allergies Allergy/AdvReac Type Severity Reaction Status Date / Time acetylcysteine Allergy Severe Other Verified 06/28/25 14:07 ciprofloxacin Allergy Severe Rash Verified 06/28/25 14:07 celecoxib Allergy Intermediate rash Verified 06/28/25 14:07 lisinopril Allergy Intermediate cough Verified 06/28/25 14:07 adhesive tape Allergy Intermediate Blister Uncoded 06/19/25 13:51 Review of Systems Review of Systems: All systems reviewed & are unremarkable except as noted in HPI and below Constitutional: Constitutional: Reports no additional constitutional complaints ENT: Reports system reviewed and no additional complaints, except as documented Cardiovascular: Cardiovascular: Reports no additional cardiovascular complaints Respiratory: Respiratory: Reports no additional respiratory complaints Gastrointestinal: Gastrointestinal: Reports no additional gastrointestinal complaints [facility] Past Medical History Medical History Myocardial infarction CAD (coronary artery disease) Vasomotor rhinitis Chronic anticoagulation On Xarelto and 81 mg aspirin Lumbosacral radiculopathy at S1 Hyperglycemia VALENTIN positive Peripheral neuropathy Seborrheic keratosis Paroxysmal atrial fibrillation New onset December 2023 Hypokalemia History of kidney stones GERD (gastroesophageal reflux disease) Mixed hyperlipidemia Essential (primary) hypertension Encounter for screening colonoscopy 05/26 Repeat 05/31 Gout Surgical History Surgical History History of medial meniscus repair of left knee (~07/16/22) History of colonoscopy History of endoscopy Hx of plastic surgery facial reconstruction Hx of carpal tunnel repair Rt trigger finger (thumb) History of tubal ligation History of coronary artery stent placement x3 (2006, 2011, 2014) Hx of CABG Two vessel CABG 2006 Family History Family History Father Diabetes mellitus Hypertension Mother Hypertension Spinal stenosis Unknown Heart disease Social History Social History Social History: Code status: Full code Healthcare power of ip technology transactions attorney: Joey Mirza () Smoking packs per day: 2 Smoking cigarettes per day: 40.0 Years smoked: 38 Smoking pack-years: 76.00 Smoking status: Former smoker Second hand tobacco smoke exposure: No Alcohol intake: never Substance use: never Substance use type: does not use Do You Feel Safe in your Home?: Yes Lack of Transportation: No Lack of Food: Never True Current Housing: I Have Housing Concerned About Future Housing: No Difficulty Paying Gas/Electric Bills: No Difficulty Paying for Meds: No Currently Unemployed: No Education: Associate Degree Difficulty w/ Childcare or Family Care: No Living arrangements: with family Occupation/Education: retired Gender identity (if verbalized by the patient): Female Sexual Orientation (if Verbalized by the Patient): Straight or Heterosexual Spiritual care concerns: No Agree to blood products: Yes Exam Narrative: GENERAL: Well-appearing, well-nourished, and in no acute distress. HEAD: Normocephalic, atraumatic. ENT: Mucous membranes moist. NECK: Supple. CHEST: Clear to auscultation. No respiratory distress. HEART: Regular rate and rhythm. Normal peripheral pulses. ABDOMEN: Soft, tender palpation left lower quadrant with guarding, nondistended. EXTREMITIES: Normal range of motion. No edema. SKIN: Warm, dry, no rash. NEURO: Alert and oriented x3. PSYCH: Normal mood and affect. Course Course Emergency Course: Persistent uncomplicated diverticulitis. Unfortunately has had outpatient treatment failure. Admit to hospitalist service for IV antibiotics. Vital Signs Vital signs: Vital Signs Temperature 97.9 F 06/28/25 09:33 Pulse Rate 57 L 06/28/25 09:33 Respiratory Rate 16 06/28/25 09:33 Blood Pressure 171/86 H 06/28/25 09:33 Pulse Oximetry 97 06/28/25 09:33 Oxygen Delivery Room Air 06/28/25 09:33 Temperature 96.9 F L 06/28/25 14:00 Pulse Rate 55 L 06/28/25 14:00 Respiratory Rate 16 06/28/25 14:00 Blood Pressure 147/55 H 06/28/25 14:00 Pulse Oximetry 100 06/28/25 14:00 Oxygen Delivery Room Air 06/28/25 15:01 MDM - Abdominal Pain Lab Data Attestation: I reviewed the patient's lab results. 06/28/25 09:58 06/28/25 09:58 Labs: Lab Results 06/28/25 06/28/25 Range/Units 09:58 10:13 WBC 6.6 (4.5-10.0) K/mm3 RBC 4.44 (4.2-5.4) M/mm3 Hgb 13.5 (12.0-15.0) g/dL Hct 40.2 (37.0-47.0) % MCV 90.5 (80-100) fl MCH 30.4 (26-34) pg MCHC 33.6 (32-36) g/dl RDW 13.2 (11.5-14.5) % Plt Count 226 (150-375) k/mm3 MPV 9.6 (7.4-10.4) fl Immature Gran % (Auto) 0.5 (0-0.5) % Neut % (Auto) 67.8 (45.5-73.1) % Lymph % (Auto) 19.9 (18.3-44.2) % Pepin % (Auto) 8.4 (2.6-8.5) % Eos % (Auto) 2.3 (0-4.4) % Baso % (Auto) 1.1 (0.2-1.2) % Lymph # (Auto) 1.31 (0.9-3.2) K/mm3 Pepin # (Auto) 0.6 (0.1-0.6) K/mm3 Eos # (Auto) 0.2 (0-0.3) K/mm3 Baso # (Auto) 0.1 (0.0-0.1) K/mm3 Abs Immat Gran (auto) 0.03 (0.00-0.031) K/mm3 Absolute Neuts (auto) 4.5 (1.3-6.7) K/mm3 Absolute Nucleated RBC 0.000 (0.0-0.012) K/mm3 Nucleated RBC % 0.0 (0.0-0.2) % Sodium 141 (137-145) mmol/L Potassium 3.6 (3.4-5.0) mmol/L Chloride 109 H (98-107) mmol/L Carbon Dioxide 19 L (22-30) mmol/L Anion Gap 13 H (4-12) mmol/L BUN 8 D (7-17) mg/dL Creatinine 1.08 H (0.7-1.0) mg/dL Estim Creat Clear Calc 42 ml/min Estimated GFR 50 L (59 - ) Glucose 131 H (65-110) mg/dL Calcium 9.5 (8.4-10.2) mg/dL Total Bilirubin 0.5 (0.2-1.3) mg/dL AST 40 H (14-36) U/L ALT 31 (6-35) U/L Alkaline Phosphatase 109 (38-126) U/L Total Protein 7.8 (6.3-8.2) g/dL Albumin 4.5 (3.5-5.1) g/dL Lipase 125 (23-300) U/L Urine Color Yellow (Yellow) Urine Appearance Clear (Clear) Urine pH 7.0 (5.0-9.0) Ur Specific [place] 1.013 (1.001-1.035) Urine Protein Negative (Negative) mg/dL Urine Glucose (UA) Negative (Negative) mg/dL Urine Ketones Negative (Negative) mg/dL Ur Blood (Man) Negative (Negative) Urine Nitrate Negative (Negative) Urine Bilirubin Negative (Negative) Urine Urobilinogen 1.0 (<2.0) mg/dL Leukocyte Esterase Rfl Trace H (Negative) [place]/UL Urine RBC 0-2 (0-2) /hpf Urine WBC 0-5 (0-3) /hpf Ur Squamous Epith Cells None seen (Few) /hpf Urine Bacteria None seen /hpf Urine Casts 0-2 Imaging Data Radiologist's impression: ITS Impressions Abdomen/Pelvis CT 06/28/25 10:56 IMPRESSION: 1. Mild diverticulitis proximal sigmoid colon persists, not significantly changed. 2. No complicating features have developed. Discharge Plan Discharge Clinical Impression: Diverticulitis Patient Disposition: Still a Patient Condition: Stable
[2025-06-28] MEDS: MORPHINE SULFATE (*CRX) 4 MG/ML INJ IV PUSH (12:48)
[2025-06-28] MEDS: metroNIDAZOLE 500 MG/ISO 100ML 500 MG/100 ML BAG 100 MG IVPB ×2 (12:57→22:42)
--- NOTE | 2025-06-28 13:01 | PM.IMHP ---
H&P: HPI History of Present Illness Date/Time: 06/28/25 13:01 Chief Complaint: Abdominal Pain, Nausea Narrative: 69 y/o F with PMH of atrial fibrillation on chronic anticoagulation, kidney stones, GERD, hyperlipidemia, hypertension, and gout presents here with abdominal pain and nausea. The patient presents here from home on 06/28 for further evaluation of abdominal pain and nausea. She initially presented to a local urgent care earlier this month for pelvic pain on 06/19. She followed up with her PCP on 06/19 and at that time she reported left lower abdominal pain without nausea or vomiting, did report some loose stools. CT was completed and showed uncomplicated sigmoid diverticulitis. She was prescribed Augmentin. She sought re-evaluation on 06/24 for worsening of her abdominal pain. CT at that time showed mild diverticulitis of proximal sigmoid colon without complication. The patient was offered admission for IV antibiotics, however she elected to go home on a different antibiotic. She was prescribed in Flagyl and Bactrim at that time due to her ciprofloxacin allergy. Now returning today, 06/28, for continued abdominal pain and nausea. She reports she has been on a largely clear liquid diet with some toast and noodles intermittently since Sunday 06/24. She describes the abdominal pain as an 8/10, constant but varies in severity, achy, left lower and has only been relieved thus far with morphine. Continues to have nausea at this time. Denies fever, chills, diarrhea, melena, hematochezia, or vomiting. She reports no previous history of diverticulitis prior to this current ongoing episode. Initial VS at presentation: 97.9? F, HR 57, R 16, 171/86, and 97% on RA. ED workup showed: No leukocytosis, no anemia, no significant electrolyte derangements, creatinine 1.08 and GFR 50, glucose 131, lipase within normal limits. UA showed trace leuk esterase otherwise unremarkable. CT of the abdomen/pelvis showed mild diverticulitis of the proximal sigmoid colon persistent and not significantly changed, no complicating features of developed. Review of Systems Review of Systems: All systems reviewed & are unremarkable except as noted in HPI and below PMFSH Past Medical History Medical History Myocardial infarction CAD (coronary artery disease) Vasomotor rhinitis Chronic anticoagulation On Xarelto and 81 mg aspirin Lumbosacral radiculopathy at S1 Hyperglycemia VALENTIN positive Peripheral neuropathy Seborrheic keratosis Paroxysmal atrial fibrillation New onset December 2023 Hypokalemia History of kidney stones GERD (gastroesophageal reflux disease) Mixed hyperlipidemia Essential (primary) hypertension Encounter for screening colonoscopy 05/26 Repeat 05/31 Gout Surgical History Surgical History History of medial meniscus repair of left knee (~07/16/22) History of colonoscopy History of endoscopy Hx of plastic surgery facial reconstruction Hx of carpal tunnel repair Rt trigger finger (thumb) History of tubal ligation History of coronary artery stent placement x3 (2006, 2011, 2014) Hx of CABG Two vessel CABG 2005 Family History Family History Father Diabetes mellitus Hypertension Mother Hypertension Spinal stenosis Unknown Heart disease Social History Social History Social History: Code status: Full code 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: Joey Mirza () Smoking packs per day: 2 Smoking cigarettes per day: 40.0 Years smoked: 38 Smoking pack-years: 76.00 Smoking status: Former smoker Second hand tobacco smoke exposure: No Alcohol intake: never Substance use: never Substance use type: does not use Do You Feel Safe in your Home?: Yes Lack of Transportation: No Lack of Food: Never True Current Housing: I Have Housing Concerned About Future Housing: No Difficulty Paying Gas/Electric Bills: No Difficulty Paying for Meds: No Currently Unemployed: No Education: Associate Degree Difficulty w/ Childcare or Family Care: No Living arrangements: with family Occupation/Education: retired Gender identity (if verbalized by the patient): Female Sexual Orientation (if Verbalized by the Patient): Straight or Heterosexual Spiritual care concerns: No Agree to blood products: Yes Meds Home Medications and Allergies Home Medications ?Medication ?Instructions ?Recorded ?Confirmed ?Type irbesartan 75 mg tablet 75 mg PO HS 05/05/21 06/28/25 History atorvastatin 20 mg tablet 20 mg PO HS 03/17/22 06/28/25 History ezetimibe 10 mg tablet 10 mg PO HS 03/17/22 06/28/25 History Fish Oil 1 cap PO QAM 07/08/22 06/28/25 History potassium chloride 20 mEq 20 meq PO DAILY #300 tabs 05/09/24 06/28/25 Rx tablet,extended release Held on 06/28/25. Instructions: Patient no longer taking gabapentin 300 mg capsule 600 mg PO HS 06/19/24 06/28/25 History ipratropium bromide 42 mcg (0.06 2 spray intranasal DAILY 06/19/24 06/28/25 History %) nasal spray rivaroxaban 20 mg tablet (Xarelto) 20 mg PO HS 06/19/24 06/28/25 History amoxicillin 875 mg-potassium 1 tablet PO BID #20 tabs 06/19/25 06/28/25 Rx clavulanate 125 mg tablet Held on 06/28/25. Instructions: Patient no longer taking furosemide 80 mg tablet 20 mg (1/4 x 80 mg) PO DAILY #30 06/19/25 06/28/25 Rx tabs topiramate 50 mg tablet 50 mg PO BID 06/19/25 06/28/25 History metronidazole 500 mg tablet 500 mg PO Q12H 1 week #14 tabs 06/24/25 06/28/25 Rx sulfamethoxazole 800 1 tablet PO Q12H 1 week #14 tabs 06/24/25 06/28/25 Rx mg-trimethoprim 160 mg tablet metoprolol succinate 25 mg 50 mg PO BID 06/28/25 06/28/25 History tablet,extended release 24 hr (Toprol XL) Allergies Allergy/AdvReac Type Severity Reaction Status Date / Time acetylcysteine Allergy Severe Other Verified 06/28/25 14:07 ciprofloxacin Allergy Severe Rash Verified 06/28/25 14:07 celecoxib Allergy Intermediate rash Verified 06/28/25 14:07 lisinopril Allergy Intermediate cough Verified 06/28/25 14:07 adhesive tape Allergy Intermediate Blister Uncoded 06/19/25 13:51 Vital Signs Vital Signs - 24 hr 06/28/25 09:33 06/28/25 12:25 Temperature 97.9 F Pulse Rate 57 L 57 L Respiratory Rate 16 14 Blood Pressure 171/86 H 169/82 H Pulse Oximetry 97 98 Oxygen Delivery Room Air Exam Const: General: comfortable and no acute distress Other: , female, elderly, nontoxic appearance HENMT: Face/Nose/Sinus: Normal nares present Mouth: Yes moist mucous membranes Eyes: General: appearance normal, both eyes and all related structures Sclera: sclerae normal Pupils: Equal, round and reactive pupils present EOM: EOMs intact bilaterally Resp: Effort & Inspection: normal respiratory effort Auscultation: clear to auscultation bilaterally Cardio: Rate: regular rate Rhythm: regular rhythm Other: S1-S2 present without murmur, rub, ectopy GI: Other: Mild tenderness in the left lower quadrant. Normoactive bowel sounds in all quadrants. Abdomen is soft and nondistended. Skin: General skin exam: normal color and no rashes or lesions noted Wounds: no wounds Neuro: Speech: normal speech Motor exam (neuro): 5/5 motor strength present throughout Sensory Exam: normal sensation Other: A&O x4 Extrem: General: normal to inspection Psych: Mental Status: mental status grossly normal Affect: normal affect Other: Good insight and judgment, pleasant H&P: Results Labs Labs: Short CBC 06/28/25 Range/Units 09:58 WBC 6.6 (4.5-10.0) K/mm3 Hgb 13.5 (12.0-15.0) g/dL Hct 40.2 (37.0-47.0) % Plt Count 226 (150-375) k/mm3 BMP 06/28/25 09:58 Sodium 141 Potassium 3.6 Chloride 109 H Carbon Dioxide 19 L BUN 8 D Creatinine 1.08 H Glucose 131 H Calcium 9.5 Liver Function 06/28/25 Range/Units 09:58 Total Bilirubin 0.5 (0.2-1.3) mg/dL AST 40 H (14-36) U/L ALT 31 (6-35) U/L Alkaline Phosphatase 109 (38-126) U/L Albumin 4.5 (3.5-5.1) g/dL Urine 06/28/25 Range/Units 10:13 Urine Color Yellow (Yellow) Urine Appearance Clear (Clear) Urine pH 7.0 (5.0-9.0) Ur Specific [place] 1.013 (1.001-1.035) Urine Protein Negative (Negative) mg/dL Urine Glucose (UA) Negative (Negative) mg/dL Assessment and Plan Assessment and plan (1) Diverticulitis: Code(s): K57.92 - Diverticulitis of intestine, part unspecified, without perforation or abscess without bleeding Status: Acute Assessment and Plan: CT abd/pelvis completed on 06/19, 06/24, and 06/28. Imaging repeatedly showed mild diverticulitis of the proximal sigmoid colon without complicating features. Initially prescribed Augmentin and was transition to Bactrim/Flagyl outpatient. Patient now admitted for IV antibiotics due to failed outpatient therapy. No indication for general surgery/GI consult at this time as the diverticulitis is uncomplicated on imaging, however if patient has no clinical improvement or if the patient's white count increases -> would consider consultation for further expertise. - started Ceftriaxone + Metronidazole - IV fluids: 100 mL/hr x2L - clear liquid diet - pain medication prn >> [place], Tylenol, morphine. Did receive 4 mg of morphine in the ED, however she felt this was fairly strong and did not like how she felt. Morphine has been reduced due to 2 mg p.r.n.. - daily clinical reassessment for improvement - monitor electrolytes and WBC (2) Hyperglycemia: Code(s): R73.9 - Hyperglycemia, unspecified Status: Acute Assessment and Plan: No previous history of diabetes. Review chart, A1c last completed in 2023 and was 5.6%. Glucose upon admission was 131. Will update A1c. (3) Paroxysmal atrial fibrillation: Onset Date: 12/2023 Code(s): I48.0 - Paroxysmal atrial fibrillation Status: Chronic Assessment and Plan: History of paroxysmal AFib on chronic anticoagulation. Reviewed most recent EKG from 06/19, patient in normal sinus rhythm and rate controlled at 64. - continue metoprolol, Xarelto (4) Hypertension: Qualifiers: Hypertension type: primary hypertension Qualified Code(s): I10 - Essential (primary) hypertension Code(s): I10 - Essential (primary) hypertension Status: Chronic Assessment and Plan: - chronic, currently 169/82, stable. - continue home medications: Irbesartan, metoprolol - monitor Plan Diet: Clear liquid GI Prophylaxis: N/a DVT Prophylaxis: IV fluids: 100 mL/hr x2L Lines/Tubes: Peripheral IV Code Status: full code Quality VTE Prophylaxis VTE prophylaxis: pharmacologic ordered Hospitalist MIPS Advance Care Plan I have confirmed that the patient's Advanced Care Plan is present, code status is documented, or surrogate decision maker is listed in patient medical record.: Yes Medication Reconciliation I have utilized all available resources to obtain, update and review the patients current medications (includes all prescriptions, OTC, herbals, cannabis, and nutritional supplements).: Yes
[2025-06-28 13:35] VITALS: BP 156/77; PULSE 59; RESP 15; O2SAT 98
[2025-06-28 13:55] VITALS: BMI 32.2
[2025-06-28 14:00] VITALS: BP 147/55; PULSE 55; RESP 16; TEMP 36.1; O2SAT 100
--- NOTE | 2025-06-28 14:03 | PC.NURSE ---
This patient, Mercy Mirza, was admitted to [facility] Surg Room 310-01 at 1355. Patient/family oriented to hospital policies and general routines including ID bracelet, bed and alarms, visiting hours, pain management, procedures, bathroom and other care routines, personal items, smoking policy, room service/diet, and visiting hours. Information on how to activate the Rapid Response Team has been discussed. Patient/Family are encouraged to report perceived risks to care and to ask questions if they do not understand what they are told or what they should do.
[2025-06-28] MEDS: LACTATED RINGERS 1,000 ML 100 ML IV CONT (15:06)
[2025-06-28] MEDS: HYDROcodone/acetaminophen (*CRX) 5-325 MG TABLET 1 TAB PO (18:31)
[2025-06-28] MEDS: ATORVASTATIN 20 MG TABLET PO (20:09)
[2025-06-28] MEDS: EZETIMIBE 10 MG TABLET PO (20:10)
[2025-06-28] MEDS: GABAPENTIN 300 MG CAPSULE 600 MG PO (20:11)
[2025-06-28 20:12] VITALS: PULSE 70
[2025-06-28] MEDS: RIVAROXABAN 20 MG TABLET PO (20:12)
[2025-06-28] MEDS: TOPIRAMATE 25 MG TABLET 50 MG PO (20:12)
[2025-06-28] MEDS: METOPROLOL SUCCINATE EXT REL 50 MG TABCR PO (20:12)
[2025-06-28] MEDS: IRBESARTAN 75 MG TABLET PO (20:12)
[2025-06-28 22:00] VITALS: BP 130/67; PULSE 62; RESP 16; TEMP 36.4; O2SAT 100
[2025-06-28] MEDS: ONDANSETRON INJ 4 MG/2 ML VIAL IV PUSH (22:42)
[2025-06-29] MEDS: LACTATED RINGERS 1,000 ML 100 ML IV CONT (04:49)
[2025-06-29] MEDS: ACETAMINOPHEN 325 MG TABLET 650 MG PO ×2 (04:54→09:47)
[2025-06-29] MEDS: metroNIDAZOLE 500 MG/ISO 100ML 500 MG/100 ML BAG 100 MG IVPB ×3 (05:05→22:42)
[2025-06-29 05:30] LABS: Hematocrit 38.0 % (37.0-47.0); Hemoglobin 12.9 g/dL (12.0-15.0); Immature Granulocyte Percent A 0.6 % (0-0.5); Lymphocytes Absolute Auto 1.06 K/mm3 (0.9-3.2); Mean Corpuscular HGB Conc 33.9 g/dl (32-36); Mean Corpuscular Hemoglobin 30.6 pg (26-34); Mean Corpuscular Volume 90.3 fl (80-100); Nucleated Red Blood Cells Absolute Auto 0.000 K/mm3 (0.0-0.012); Nucleated Red Blood Cells Perc 0.0 % (0.0-0.2); Platelet Count Result 189 k/mm3 (150-375); Red Blood Count 4.21 M/mm3 (4.2-5.4); White Blood Count 5.4 K/mm3 (4.5-10.0)
[2025-06-29 05:32] VITALS: BP 128/70; PULSE 64; RESP 16; TEMP 36.3; O2SAT 95
[2025-06-29 05:40] LABS: Hemoglobin A1C 5.1 % (<5.7)
[2025-06-29 06:01] LABS: Anion Gap 9 mmol/L (4-12); Blood Urea Nitrogen 6 mg/dL (7-17); Calcium 9.2 mg/dL (8.4-10.2); Carbon Dioxide 20 mmol/L (22-30); Chloride 110 mmol/L (98-107); Estimated CRCL calculation 46 ml/min; Estimated Glomerular Filt Rate 55; Glucose 95 mg/dL (65-110); Magnesium 2.1 mg/dL (1.6-2.3); Potassium 3.5 mmol/L (3.4-5.0); Sodium 139 mmol/L (137-145)
--- NOTE | 2025-06-29 07:31 | PM.IMPN ---
Progress Note: A&P Assessment and Plan (1) Diverticulitis: Code(s): K57.92 - Diverticulitis of intestine, part unspecified, without perforation or abscess without bleeding Status: Acute Assessment and Plan: CT abd/pelvis completed on 06/19, 06/24, and 06/28. Imaging repeatedly showed mild diverticulitis of the proximal sigmoid colon without complicating features. Initially prescribed Augmentin and was transition to Bactrim/Flagyl outpatient. Patient now admitted for IV antibiotics due to failed outpatient therapy. No indication for general surgery/GI consult at this time as the diverticulitis is uncomplicated on imaging, however if patient has no clinical improvement or if the patient's white count increases -> would consider consultation for further expertise. - started Ceftriaxone + Metronidazole - IV fluids: 100 mL/hr x2L - clear liquid diet - pain medication prn >> [place], Tylenol, morphine. Did receive 4 mg of morphine in the ED, however she felt this was fairly strong and did not like how she felt. Morphine has been reduced due to 2 mg p.r.n.. - daily clinical reassessment for improvement - monitor electrolytes and WBC (2) Hyperglycemia: Code(s): R73.9 - Hyperglycemia, unspecified Status: Acute Assessment and Plan: No previous history of diabetes. Review chart, A1c last completed in 2023 and was 5.6%. Glucose upon admission was 131. Will update A1c. (3) Paroxysmal atrial fibrillation: Onset Date: 12/2023 Code(s): I48.0 - Paroxysmal atrial fibrillation Status: Chronic Assessment and Plan: History of paroxysmal AFib on chronic anticoagulation. Reviewed most recent EKG from 06/19, patient in normal sinus rhythm and rate controlled at 64. - continue metoprolol, Xarelto (4) Hypertension: Qualifiers: Hypertension type: primary hypertension Qualified Code(s): I10 - Essential (primary) hypertension Code(s): I10 - Essential (primary) hypertension Status: Chronic Assessment and Plan: - chronic, currently 169/82, stable. - continue home medications: Irbesartan, metoprolol - monitor Plan Diet: Clear liquid GI Prophylaxis: N/a DVT Prophylaxis: IV fluids: 100 mL/hr x2L Lines/Tubes: Peripheral IV Code Status: full code Subjective Date/time seen: 06/29/25 07:31 Interval history: Able to tolerate clear liquid. Denies any NVD.Advanced to full liquid diet. Review of Systems Review of Systems: All systems reviewed & are unremarkable except as noted in HPI and below Exam Const: General: comfortable and no acute distress Other: , female, elderly, nontoxic appearance HENMT: Face/Nose/Sinus: Normal nares present Mouth: Yes moist mucous membranes Eyes: General: appearance normal, both eyes and all related structures Sclera: sclerae normal Pupils: Equal, round and reactive pupils present EOM: EOMs intact bilaterally Resp: Effort & Inspection: normal respiratory effort Auscultation: clear to auscultation bilaterally Cardio: Rate: regular rate Rhythm: regular rhythm Other: S1-S2 present without murmur, rub, ectopy GI: Other: Mild tenderness in the left lower quadrant. Normoactive bowel sounds in all quadrants. Abdomen is soft and nondistended. Skin: General skin exam: normal color and no rashes or lesions noted Wounds: no wounds Neuro: Cranial nerves: Yes Equal, round and reactive pupils present Speech: normal speech Motor exam (neuro): 5/5 motor strength present throughout Sensory Exam: normal sensation Other: A&O x4 Extrem: General: normal to inspection Psych: Mental Status: mental status grossly normal Affect: normal affect Other: Good insight and judgment, pleasant Objective Data Vital Signs Vital Signs: Vital Signs - 24 hr 06/28/25 09:33 06/28/25 12:25 06/28/25 13:35 Temperature 97.9 F Pulse Rate 57 L 57 L 59 L Respiratory Rate 16 14 15 Blood Pressure 171/86 H 169/82 H 156/77 H Pulse Oximetry 97 98 98 Oxygen Delivery Room Air 06/28/25 14:00 06/28/25 15:01 06/28/25 20:12 Temperature 96.9 F L Pulse Rate 55 L 70 Respiratory Rate 16 Blood Pressure 147/55 H Pulse Oximetry 100 Oxygen Delivery Room Air 06/28/25 22:00 06/29/25 05:32 Temperature 97.5 F L 97.3 F L Pulse Rate 62 64 Respiratory Rate 16 16 Blood Pressure 130/67 128/70 Pulse Oximetry 100 95 Oxygen Delivery Intake/Output Intake/Output: Intake & Output 06/26/25 06/27/25 06/28/25 06/29/25 23:59 23:59 23:59 23:59 Intake Total 490 1400 Balance 490 1400 Meds/Results Medications: Active Medications Generic Name Dose Route Start Last Admin Trade Name Freq PRN Reason Stop Dose Admin Acetaminophen 650 mg 06/28/25 12:45 06/29/25 04:54 Acetaminophen 325 Mg Tablet PO 650 mg Q4H PRN Administration Mild Pain (1-3) or Fever Hydrocodone Bitart/Acetaminophen 1 tab 06/28/25 12:45 06/28/25 18:31 Hydrocodone/Acetaminophen (*Crx) 5-325 Mg Tablet PO 1 tab Q4H PRN Administration Pain Rated 4-6 Atorvastatin Calcium 20 mg 06/28/25 21:00 06/28/25 20:09 Atorvastatin 20 Mg Tablet PO 20 mg HS HAN Administration Ezetimibe 10 mg 06/28/25 21:00 06/28/25 20:10 Ezetimibe 10 Mg Tablet PO 10 mg HS HAN Administration Furosemide 20 mg 06/29/25 09:00 Furosemide 20 Mg Tablet PO DAILY HAN Gabapentin 600 mg 06/28/25 21:00 06/28/25 20:11 Gabapentin 300 Mg Capsule PO 600 mg HS HAN Administration Ceftriaxone Sodium 1 gm/ 50 mls @ 100 mls/hr 06/29/25 12:00 Sodium Chloride IVPB Q24H HAN Metronidazole 500 mg in 100 mls @ 100 mls/hr 06/28/25 22:00 06/29/25 06:05 Flagyl 500 Mg/Iso Soln 100 Ml IVPB Infused Q8H HAN Infusion Lactated Ringer's 1,000 mls @ 100 mls/hr 06/28/25 13:25 06/29/25 04:49 Lr - Lactated Ringers Iv IV CONT 06/29/25 09:24 100 mls/hr .Q10H HAN Administration Ipratropium [place] 2 spray 06/29/25 09:00 Ipratropium Nasal [place] 0.06% 15 Ml Bottle NASAL DAILY HAN Irbesartan 75 mg 06/28/25 21:00 06/28/25 20:12 Irbesartan 75 Mg Tablet PO 75 mg HS HAN Administration Metoprolol Succinate 50 mg 06/28/25 21:00 06/28/25 20:12 Metoprolol Succinate Ext Rel 50 Mg Tabcr PO 50 mg Q12HR HAN Administration Morphine Sulfate 2 mg 06/28/25 12:45 Morphine Sulfate (*Crx) 4 Mg/Ml Inj IV PUSH Q2H PRN Pain Rated 7-10 Ondansetron HCl 4 mg 06/28/25 12:45 06/28/25 22:42 Ondansetron Inj 4 Mg/2 Ml Vial IV PUSH 4 mg Q4H PRN Administration Nausea Rivaroxaban 20 mg 06/28/25 21:00 06/28/25 20:12 Rivaroxaban 20 Mg Tablet PO 20 mg HS HAN Administration Topiramate 50 mg 06/28/25 21:00 06/28/25 20:12 Topiramate 25 Mg Tablet PO 50 mg Q12HR HAN Administration Radiology Results: ITS Impressions Abdomen/Pelvis CT 06/28/25 10:56 IMPRESSION: 1. Mild diverticulitis proximal sigmoid colon persists, not significantly changed. 2. No complicating features have developed. Labs Labs: Laboratory Results - last 24 hr 06/28/25 06/28/25 06/29/25 09:58 10:13 04:50 WBC 6.6 5.4 RBC 4.44 4.21 Hgb 13.5 12.9 Hct 40.2 38.0 MCV 90.5 90.3 MCH 30.4 30.6 MCHC 33.6 33.9 RDW 13.2 13.3 Plt Count 226 189 MPV 9.6 9.3 Immature Gran % (Auto) 0.5 0.6 H Neut % (Auto) 67.8 66.9 Lymph % (Auto) 19.9 19.5 [place] % (Auto) 8.4 10.3 H Eos % (Auto) 2.3 1.8 Baso % (Auto) 1.1 0.9 Lymph # (Auto) 1.31 1.06 [place] # (Auto) 0.6 0.6 Eos # (Auto) 0.2 0.1 Baso # (Auto) 0.1 0.1 Abs Immat Gran (auto) 0.03 0.03 Absolute Neuts (auto) 4.5 3.6 Absolute Nucleated RBC 0.000 0.000 Nucleated RBC % 0.0 0.0 Sodium 141 139 Potassium 3.6 3.5 Chloride 109 H 110 H Carbon Dioxide 19 L 20 L Anion Gap 13 H 9 BUN 8 D 6 L Creatinine 1.08 H 0.99 Estim Creat Clear Calc 42 46 Estimated GFR 50 L 55 L Glucose 131 H 95 Hemoglobin A1c 5.1 Calcium 9.5 9.2 Magnesium 2.1 Total Bilirubin 0.5 AST 40 H ALT 31 Alkaline Phosphatase 109 Total Protein 7.8 Albumin 4.5 Lipase 125 Urine Color Yellow Urine Appearance Clear Urine pH 7.0 Ur Specific [place] 1.013 Urine Protein Negative Urine Glucose (UA) Negative Urine Ketones Negative Ur Blood (Man) Negative Urine Nitrate Negative Urine Bilirubin Negative Urine Urobilinogen 1.0 Leukocyte Esterase Rfl Trace H Urine RBC 0-2 Urine WBC 0-5 Ur Squamous Epith Cells None seen Urine Bacteria None seen Urine Casts 0-2 Quality VTE Prophylaxis VTE prophylaxis: pharmacologic ordered Hospitalist [facility] Advance Care Plan I have confirmed that the patient's Advanced Care Plan is present, code status is documented, or surrogate decision maker is listed in patient medical record.: Yes Medication Reconciliation I have utilized all available resources to obtain, update and review the patients current medications (includes all prescriptions, OTC, herbals, cannabis, and nutritional supplements).: Yes
[2025-06-29 09:38] VITALS: PULSE 64
[2025-06-29] MEDS: FUROSEMIDE 20 MG TABLET PO (09:38)
[2025-06-29] MEDS: TOPIRAMATE 25 MG TABLET 50 MG PO ×2 (09:38→20:09)
[2025-06-29] MEDS: METOPROLOL SUCCINATE EXT REL 50 MG TABCR PO ×2 (09:38→20:09)
[2025-06-29] MEDS: cefTRIAXone 1 GM in SODIUM CHLORIDE 0.9% IV 50 ML 100 ML IVPB (12:42)
[2025-06-29 14:00] VITALS: BP 123/65; PULSE 62; RESP 16; TEMP 36.8; O2SAT 100
[2025-06-29] MEDS: ONDANSETRON INJ 4 MG/2 ML VIAL IV PUSH ×2 (15:22→20:03)
[2025-06-29] MEDS: HYDROcodone/acetaminophen (*CRX) 5-325 MG TABLET 1 TAB PO ×2 (15:23→20:07)
[2025-06-29] MEDS: ATORVASTATIN 20 MG TABLET PO (20:08)
[2025-06-29] MEDS: IRBESARTAN 75 MG TABLET PO (20:08)
[2025-06-29] MEDS: GABAPENTIN 300 MG CAPSULE 600 MG PO (20:08)
[2025-06-29] MEDS: EZETIMIBE 10 MG TABLET PO (20:08)
[2025-06-29 20:09] VITALS: PULSE 84
[2025-06-29] MEDS: RIVAROXABAN 20 MG TABLET PO (20:09)
[2025-06-29 21:28] VITALS: BP 117/69; PULSE 62; RESP 14; TEMP 37.1; O2SAT 96
[2025-06-30] VITALS (7 sets, daily range): BP systolic 114–142; BP diastolic 64–71; PULSE 60–63; RESP 14–18; TEMP 36.1–37.3; O2SAT 97–100
[2025-06-30] MEDS: metroNIDAZOLE 500 MG/ISO 100ML 500 MG/100 ML BAG 100 MG IVPB ×3 (05:19→20:26)
[2025-06-30 05:33] LABS: Hematocrit 40.8 % (37.0-47.0); Hemoglobin 13.8 g/dL (12.0-15.0); Mean Corpuscular HGB Conc 33.8 g/dl (32-36); Mean Corpuscular Hemoglobin 30.8 pg (26-34); Mean Corpuscular Volume 91.1 fl (80-100); Platelet Count Result 164 k/mm3 (150-375); Red Blood Count 4.48 M/mm3 (4.2-5.4); White Blood Count 4.4 K/mm3 (4.5-10.0)
[2025-06-30 05:54] LABS: Alanine Aminotransferase 67 U/L (6-35); Albumin Level 4.0 g/dL (3.5-5.1); Alkaline Phosphatase 100 U/L (38-126); Anion Gap 10 mmol/L (4-12); Aspartate Amino Transferase 85 U/L (14-36); Bilirubin,Total 0.4 mg/dL (0.2-1.3); Blood Urea Nitrogen 5 mg/dL (7-17); Calcium 9.2 mg/dL (8.4-10.2); Carbon Dioxide 22 mmol/L (22-30); Chloride 110 mmol/L (98-107); Estimated CRCL calculation 43 ml/min; Estimated Glomerular Filt Rate 51; Glucose 91 mg/dL (65-110); Potassium 3.5 mmol/L (3.4-5.0); Sodium 142 mmol/L (137-145); Total Protein 7.0 g/dL (6.3-8.2)
[2025-06-30] MEDS: TOPIRAMATE 25 MG TABLET 50 MG PO ×2 (08:29→20:26)
[2025-06-30] MEDS: METOPROLOL SUCCINATE EXT REL 50 MG TABCR PO ×2 (08:29→20:26)
[2025-06-30] MEDS: ACETAMINOPHEN 325 MG TABLET 650 MG PO ×2 (10:04→16:25)
[2025-06-30] MEDS: cefTRIAXone 1 GM in SODIUM CHLORIDE 0.9% IV 50 ML 100 ML IVPB (11:19)
[2025-06-30] MEDS: DOCUSATE SODIUM 100 MG CAPSULE PO (11:24)
--- NOTE | 2025-06-30 13:20 | PM.IMPN ---
Progress Note: A&P Assessment and Plan (1) Diverticulitis: Code(s): K57.92 - Diverticulitis of intestine, part unspecified, without perforation or abscess without bleeding Status: Acute Assessment and Plan: CT abd/pelvis completed on 06/19, 06/24, and 06/28. Imaging repeatedly showed mild diverticulitis of the proximal sigmoid colon without complicating features. Initially prescribed Augmentin and was transition to Bactrim/Flagyl outpatient. Patient now admitted for IV antibiotics due to failed outpatient therapy. No indication for general surgery/GI consult at this time as the diverticulitis is uncomplicated on imaging, however if patient has no clinical improvement or if the patient's white count increases -> would consider consultation for further expertise. - started Ceftriaxone + Metronidazole - IV fluids: 100 mL/hr x2L - clear liquid diet - pain medication prn >> [place], Tylenol, morphine. Did receive 4 mg of morphine in the ED, however she felt this was fairly strong and did not like how she felt. Morphine has been reduced due to 2 mg p.r.n.. - daily clinical reassessment for improvement - monitor electrolytes and WBC (2) Hyperglycemia: Code(s): R73.9 - Hyperglycemia, unspecified Status: Acute Assessment and Plan: No previous history of diabetes. Review chart, A1c last completed in 2023 and was 5.6%. Glucose upon admission was 131. Will update A1c. (3) Paroxysmal atrial fibrillation: Onset Date: 12/2023 Code(s): I48.0 - Paroxysmal atrial fibrillation Status: Chronic Assessment and Plan: History of paroxysmal AFib on chronic anticoagulation. Reviewed most recent EKG from 06/19, patient in normal sinus rhythm and rate controlled at 64. - continue metoprolol, Xarelto (4) Hypertension: Qualifiers: Hypertension type: primary hypertension Qualified Code(s): I10 - Essential (primary) hypertension Code(s): I10 - Essential (primary) hypertension Status: Chronic Assessment and Plan: - chronic, currently 169/82, stable. - continue home medications: Irbesartan, metoprolol - monitor Plan patient with LLQ pain is found to have diverticulitis, being treated with ceftriaxone and Flagyl, patient stats her abdominal pain is improving compared to when she arrived, however has not had BM is in a week, patient is passing gas, will give miralax and Colace, will monitor. Diet: Clear liquid GI Prophylaxis: N/a DVT Prophylaxis: IV fluids: 100 mL/hr x2L Lines/Tubes: Peripheral IV Code Status: full code Subjective Date/time seen: 06/30/25 13:20 Interval history: Able to tolerate clear liquid. Denies any NVD.Advanced to full liquid diet. patient with LLQ pain is found to have diverticulitis, being treated with ceftriaxone and Flagyl, patient stats her abdominal pain is improving compared to when she arrived, however has not had BM is in a week, patient is passing gas, will give miralax and Colace, will monitor. Review of Systems Review of Systems: All systems reviewed & are unremarkable except as noted in HPI and below Exam Narrative: Morbidly obese Patient is comfortable, NAD HEENT: eyes are clear and none icteric LUNGS:CTA HEART: RR S1S2 ABD: BS+, Soft and nontender Lower extremities: no edema SKIN: nonjaundiced Neuro: grossly intact. Objective Data Vital Signs Vital Signs: Vital Signs - 24 hr 06/29/25 14:00 06/29/25 20:00 06/29/25 20:09 Temperature 36.8 C Pulse Rate 62 84 Respiratory Rate 16 Blood Pressure 123/65 Pulse Oximetry 100 Oxygen Delivery Room Air 06/29/25 21:28 06/30/25 05:55 06/30/25 08:00 Temperature 37.1 C 37.3 C Pulse Rate 62 60 Respiratory Rate 14 14 Blood Pressure 117/69 114/64 Pulse Oximetry 96 98 98 Oxygen Delivery Room Air 06/30/25 08:29 Temperature Pulse Rate 60 Respiratory Rate Blood Pressure Pulse Oximetry Oxygen Delivery Intake/Output Intake/Output: Intake & Output 06/27/25 06/28/25 06/29/25 06/30/25 23:59 23:59 23:59 23:59 Intake Total 490 3070 810 Balance 490 3070 810 Meds/Results Medications: Active Medications Generic Name Dose Route Start Last Admin Trade Name Freq PRN Reason Stop Dose Admin Acetaminophen 650 mg 06/28/25 12:45 06/30/25 10:04 Acetaminophen 325 Mg Tablet PO 650 mg Q4H PRN Administration Mild Pain (1-3) or Fever Hydrocodone Bitart/Acetaminophen 1 tab 06/28/25 12:45 06/29/25 20:07 Hydrocodone/Acetaminophen (*Crx) 5-325 Mg Tablet PO 1 tab Q4H PRN Administration Pain Rated 4-6 Atorvastatin Calcium 20 mg 06/28/25 21:00 06/29/25 20:08 Atorvastatin 20 Mg Tablet PO 20 mg HS HAN Administration Docusate Sodium 100 mg 06/30/25 10:51 06/30/25 11:24 Docusate Sodium 100 Mg Capsule PO 100 mg DAILY HAN Administration Ezetimibe 10 mg 06/28/25 21:00 06/29/25 20:08 Ezetimibe 10 Mg Tablet PO 10 mg HS HAN Administration Furosemide 20 mg 06/29/25 09:00 06/30/25 08:28 Furosemide 20 Mg Tablet PO Not Given DAILY HAN Gabapentin 600 mg 06/28/25 21:00 06/29/25 20:08 Gabapentin 300 Mg Capsule PO 600 mg HS HAN Administration Ceftriaxone Sodium 1 gm/ 50 mls @ 100 mls/hr 06/29/25 12:00 06/30/25 11:19 Sodium Chloride IVPB 100 mls/hr Q24H HAN Administration Metronidazole 500 mg in 100 mls @ 100 mls/hr 06/28/25 22:00 06/30/25 13:09 Flagyl 500 Mg/Iso Soln 100 Ml IVPB 100 mls/hr Q8H HAN Administration Ipratropium [place] 2 spray 06/29/25 09:00 06/30/25 08:29 Ipratropium Nasal [place] 0.06% 15 Ml Bottle NASAL 2 spray DAILY HAN Administration Irbesartan 75 mg 06/28/25 21:00 06/29/25 20:08 Irbesartan 75 Mg Tablet PO 75 mg HS HAN Administration Metoprolol Succinate 50 mg 06/28/25 21:00 06/30/25 08:29 Metoprolol Succinate Ext Rel 50 Mg Tabcr PO 50 mg Q12HR HAN Administration Morphine Sulfate 2 mg 06/28/25 12:45 Morphine Sulfate (*Crx) 4 Mg/Ml Inj IV PUSH Q2H PRN Pain Rated 7-10 Ondansetron HCl 4 mg 06/28/25 12:45 06/29/25 20:03 Ondansetron Inj 4 Mg/2 Ml Vial IV PUSH 4 mg Q4H PRN Administration Nausea Polyethylene Glycol 17 gm 06/30/25 10:50 06/30/25 11:24 Polyethylene Glycol 3350 17 Gm Powd.Pack PO 17 gm QAM HAN Administration Rivaroxaban 20 mg 06/28/25 21:00 06/29/25 20:09 Rivaroxaban 20 Mg Tablet PO 20 mg HS HAN Administration Topiramate 50 mg 06/28/25 21:00 06/30/25 08:29 Topiramate 25 Mg Tablet PO 50 mg Q12HR HAN Administration Radiology Results: ITS Impressions Abdomen/Pelvis CT 06/28/25 10:56 IMPRESSION: 1. Mild diverticulitis proximal sigmoid colon persists, not significantly changed. 2. No complicating features have developed. Labs Labs: Laboratory Results - last 24 hr 06/30/25 04:47 WBC 4.4 L RBC 4.48 Hgb 13.8 Hct 40.8 MCV 91.1 MCH 30.8 MCHC 33.8 RDW 13.4 Plt Count 164 MPV 9.4 Sodium 142 Potassium 3.5 Chloride 110 H Carbon Dioxide 22 Anion Gap 10 BUN 5 L Creatinine 1.06 H Estim Creat Clear Calc 43 Estimated GFR 51 L Glucose 91 Calcium 9.2 Total Bilirubin 0.4 AST 85 H ALT 67 H Alkaline Phosphatase 100 Total Protein 7.0 Albumin 4.0 Quality VTE Prophylaxis VTE prophylaxis: pharmacologic ordered
[2025-06-30] MEDS: HYDROcodone/acetaminophen (*CRX) 5-325 MG TABLET 1 TAB PO (20:25)
[2025-06-30] MEDS: RIVAROXABAN 20 MG TABLET PO (20:25)
[2025-06-30] MEDS: IRBESARTAN 75 MG TABLET PO (20:26)
[2025-06-30] MEDS: GABAPENTIN 300 MG CAPSULE 600 MG PO (20:26)
[2025-06-30] MEDS: EZETIMIBE 10 MG TABLET PO (20:26)
[2025-06-30] MEDS: ATORVASTATIN 20 MG TABLET PO (20:26)
[2025-07-01 04:56] VITALS: BP 112/74; PULSE 68; RESP 18; TEMP 37.6; O2SAT 99
[2025-07-01 05:54] LABS: Hematocrit 38.4 % (37.0-47.0); Hemoglobin 12.8 g/dL (12.0-15.0); Mean Corpuscular HGB Conc 33.3 g/dl (32-36); Mean Corpuscular Hemoglobin 30.7 pg (26-34); Mean Corpuscular Volume 92.1 fl (80-100); Platelet Count Result 155 k/mm3 (150-375); Red Blood Count 4.17 M/mm3 (4.2-5.4); White Blood Count 4.4 K/mm3 (4.5-10.0)
[2025-07-01] MEDS: metroNIDAZOLE 500 MG/ISO 100ML 500 MG/100 ML BAG 100 MG IVPB (06:08)
[2025-07-01 06:21] LABS: Anion Gap 8 mmol/L (4-12); Blood Urea Nitrogen 5 mg/dL (7-17); Calcium 8.9 mg/dL (8.4-10.2); Carbon Dioxide 21 mmol/L (22-30); Chloride 111 mmol/L (98-107); Estimated CRCL calculation 50 ml/min; Estimated Glomerular Filt Rate > 60; Glucose 92 mg/dL (65-110); Magnesium 2.2 mg/dL (1.6-2.3); Potassium 3.5 mmol/L (3.4-5.0); Sodium 140 mmol/L (137-145)
[2025-07-01 08:52] VITALS: PULSE 80
[2025-07-01] MEDS: METOPROLOL SUCCINATE EXT REL 50 MG TABCR PO (08:52)
[2025-07-01] MEDS: FUROSEMIDE 20 MG TABLET PO (08:53)
[2025-07-01] MEDS: TOPIRAMATE 25 MG TABLET 50 MG PO (08:53)
[2025-07-01] MEDS: ACETAMINOPHEN 325 MG TABLET 650 MG PO (08:59)
[2025-07-01] MEDS: POTASSIUM CHLORIDE 20 MEQ ER TABLET 40 MEQ PO (10:14)
[2025-07-01] MEDS: cefTRIAXone 1 GM in SODIUM CHLORIDE 0.9% IV 50 ML 100 ML IVPB (12:01)
--- NOTE | 2025-07-01 13:27 | P.DS_ITS ---
DS: Admitting Diagnosis Discharge Date 07/01/25 Admitting Diagnosis Abdominal Pain, Nausea DS: Discharge Diagnosis Discharge Diagnosis (1) Diverticulitis: Code(s): K57.92 - Diverticulitis of intestine, part unspecified, without perforation or abscess without bleeding Status: Acute Assessment and Plan: CT abd/pelvis completed on 06/19, 06/24, and 06/28. Imaging repeatedly showed mild diverticulitis of the proximal sigmoid colon without complicating features. Initially prescribed Augmentin and was transition to Bactrim/Flagyl outpatient. Patient now admitted for IV antibiotics due to failed outpatient therapy. No indication for general surgery/GI consult at this time as the diverticulitis is uncomplicated on imaging, however if patient has no clinical improvement or if the patient's white count increases -> would consider consultation for further expertise. - started Ceftriaxone + Metronidazole - IV fluids: 100 mL/hr x2L - clear liquid diet - pain medication prn >> [place], Tylenol, morphine. Did receive 4 mg of morphine in the ED, however she felt this was fairly strong and did not like how she felt. Morphine has been reduced due to 2 mg p.r.n.. - daily clinical reassessment for improvement - monitor electrolytes and WBC (2) Hyperglycemia: Code(s): R73.9 - Hyperglycemia, unspecified Status: Acute Assessment and Plan: No previous history of diabetes. Review chart, A1c last completed in 2023 and was 5.6%. Glucose upon admission was 131. Will update A1c. (3) Paroxysmal atrial fibrillation: Onset Date: 12/2023 Code(s): I48.0 - Paroxysmal atrial fibrillation Status: Chronic Assessment and Plan: History of paroxysmal AFib on chronic anticoagulation. Reviewed most recent EKG from 06/19, patient in normal sinus rhythm and rate controlled at 64. - continue metoprolol, Xarelto (4) Hypertension: Qualifiers: Hypertension type: primary hypertension Qualified Code(s): I10 - Essential (primary) hypertension Code(s): I10 - Essential (primary) hypertension Status: Chronic Assessment and Plan: - chronic, currently 169/82, stable. - continue home medications: Irbesartan, metoprolol - monitor Plan patient with LLQ pain is found to have diverticulitis, being treated with ceftriaxone and Flagyl, patient stats her abdominal pain is improving compared to when she arrived, however has not had BM is in a week, patient is passing gas, will give miralax and Colace, will monitor. Diet: Clear liquid GI Prophylaxis: N/a DVT Prophylaxis: IV fluids: 100 mL/hr x2L Lines/Tubes: Peripheral IV Code Status: full code DS: Summary Hospital Course Hospital Course: patient with LLQ pain is found to have diverticulitis, being treated with ceftriaxone and Flagyl, patient stats her abdominal pain is improving compared to when she arrived, however has not had BM is in a week, patient is passing gas, will give miralax and Colace, will monitor. Today patient had a BM, patient stats feels better, patient is clinically stable, will discharge home today. Time Spent with Patient Time attestation: Total time spent providing and/or coordinating discharge services: Exam Narrative: Morbidly obese Patient is comfortable, NAD HEENT: eyes are clear and none icteric LUNGS:CTA HEART: RR S1S2 ABD: BS+, Soft and nontender Lower extremities: no edema SKIN: nonjaundiced Neuro: grossly intact. DS: Data Data Completed and Pending Labs on day of discharge: Labs from last 24 hours 07/01/25 05:06 WBC 4.4 L RBC 4.17 L Hgb 12.8 Hct 38.4 MCV 92.1 MCH 30.7 MCHC 33.3 RDW 13.6 Plt Count 155 MPV 9.6 Sodium 140 Potassium 3.5 Chloride 111 H Carbon Dioxide 21 L Anion Gap 8 BUN 5 L Creatinine 0.90 Estim Creat Clear Calc 50 Estimated GFR > 60 Glucose 92 Calcium 8.9 Magnesium 2.2 Discharge Plan Discharge Attending physician on discharge: Desi Sexton Consulting providers: Bridgett Chang; Rebel Coleman; Dontae Vazquez Discharging Clinician: Grant Louis Patient Disposition: Home Activity: as tolerated Diet: heart healthy Discharge Instructions: patient to follow up with her primary care provider as soon as soon, patient is instructed if any symptoms redevelop to go to nearest ER. Patient to finish remaining Augmentin she has. Patient Instructions: Antibiotic Form, Rivaroxaban (By mouth) Patient Language: [place]ijani Stand Alone Forms: General Discharge Information Follow-up/Referrals: Bert Glez MD [Primary Care Provider, [facility]] Discharge Medications: New polyethylene glycol 3350 [Miralax] 17 gram Powder In Packet 17 g PO QAM Qty: 30 0RF docusate sodium 100 mg Capsule 100 mg PO DAILY Qty: 20 0RF Continued potassium chloride 20 mEq tablet extended release 20 meq PO DAILY Qty: 300 3RF furosemide 80 mg tablet 20 mg PO DAILY Qty: 30 0RF Patient Comments: pt states she sometimes only takes 40mg and sometimes she takes 80mg. If she is not showing increased weight and/or swelling, she takes 40mg. topiramate 50 mg tablet 50 mg PO BID ezetimibe 10 mg tablet 10 mg PO HS atorvastatin 20 mg tablet 20 mg PO HS Fish Oil 1 cap PO QAM metoprolol succinate [Toprol XL] 25 mg tablet extended release 24 hr 50 mg PO BID irbesartan 75 mg tablet 75 mg PO HS gabapentin 300 mg capsule 600 mg PO HS ipratropium bromide 42 mcg (0.06 %) spray,non-aerosol 2 spray intranasal DAILY Rx Instructions: administer into each nostril sulfamethoxazole-trimethoprim 800-160 mg tablet 1 tablet PO Q12H 7 Days Qty: 14 0RF amoxicillin-pot clavulanate 875-125 mg tablet 1 tablet PO BID Qty: 20 0RF Discontinued metronidazole 500 mg tablet 500 mg PO Q12H 7 Days Qty: 14 0RF No Action Xarelto 20 mg tablet 20 mg PO HS Qty: 30 5RF Date of admission: 06/30/25 15:34 Primary Care Provider: Bert Glez Admitting Provider: Cornelius Aiken Attending physician on admission: Grant Louis Condition: Stable
== END 2025-07-01 14:00 | disposition home or self-care (01) | DRG 392 ==
LOC: ANHED 13:42 → ANH3MEDSUR 13:44
PROVIDERS: General Practice; Student in an Organized Health Care Education/Training Program; Admitting Provider Internal Medicine; Emergency Provider Emergency Medicine; PCP Family Medicine Adolescent Medicine; Visit Provider Family Medicine
DX: K57.32 Diverticulitis of large intestine without perforation or abscess without bleeding (principal); R73.9 Hyperglycemia, unspecified; I48.0 Paroxysmal atrial fibrillation; I10 Essential (primary) hypertension; I25.10 Atherosclerotic heart disease of native coronary artery without angina pectoris; G62.9 Polyneuropathy, unspecified; K21.9 Gastro-esophageal reflux disease without esophagitis; E78.2 Mixed hyperlipidemia; M54.17 Radiculopathy, lumbosacral region; Z79.01 Long term (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; I25.2 Old myocardial infarction; Z79.82 Long term (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 aspirin; Z87.442 Personal history of urinary calculi; Z95.5 Presence of coronary angioplasty implant and graft; Z95.1 Presence of aortocoronary bypass graft
CPT/HCPCS: 36415; 74177; 80048; 80053; 81001; 83036; 83690; 83735; 85025; 85027; 96361; 96365; 96366; 96367; 96375; 96376; 99285; A9270; G0378; J0696; J1836; J2270; J2405; J7120; Q9967

== ENCOUNTER 2025-09-02 02:04 | Day surgery (SDC) | payer MEDICARE, SELFPAY ==
[2025-08-22 14:36] VITALS: BMI 32.1
--- OUTSIDE RECORDS SUMMARY | 2025-09-02 02:07 | XMS_ITS | Encounter Summary ---
Author Organization [facility] Facility Care Team Providers Care Bar Turner Name Role Phone Bert Glez MD Primary Care Prov ider Reji Godinez MD Unavailable Farooq Hitchcock MD Unavailable [phone] Encounter Details Date Type Department Care Team (Latest Contact Info) Description 12/16/2015 Orders Only [facility] Provider, MD Alexandru [address] [place] [id number] Social History Tobacco Use Types Packs/Day Years Used Date Smoking Tobacco: Every Day Comments:Smoking History Pac ks/day: 0.5 Packs Alcohol Use Standard Drinks/Week Comments Yes 0 (1 standard drink = 0.6 oz pur e alcohol) Comments Unknown Sex and Gender Information Value Date Recorded Sex Assigned at Not on file Legal Sex Female 2:06 AM [employer] Gender Identity Not on file Sexual Orientation Not on file documented as of this encounter Plan of Treatment Not on file documented as of this encounter Procedures Procedure Name Priority Date/Time Associated Diagnosis Comments CARDIOLOGY REPORT 08/05/2016 12: 00 AM [employer] documented in this encounter Results * CARDIOLOGY REPORT (08/05/2016 12:00 AM [employer]STRUCTION [employer]) Anatomical Region Laterality Modality Other Narrative 08/05/2016 12:00 AM [employer] Ordered by an unspecified provider. Historical Provider [facility] Final Result documented in this encounter Visit Diagnoses Not on filedocumented in this encounter Care Teams Bar Turner Relationship Specialty Start Date End Date Bert Glez MD PCP - General 04/09/13 Reji Godinez MD [address] [address] [place] [address] [address] Computational Mathematician Cardiology 04/26/19 Farooq Hitchcock MD [address] [address] Consulting Physician Clinical Cardiac Electrophysiology 11/15/24 documented as of this encounter
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
--- OUTSIDE RECORDS SUMMARY | 2025-09-02 02:07 | XMS_ITS | Encounter Summary ---
Author Organization [facility] Facility Care Team Providers Care Flight Communications Operator Name Role Phone Bert Glez MD Primary Care Prov ider Reji Godinez MD Unavailable [phone] Farooq Hitchcock MD Unavailable [phone] Encounter Details Date Type Department Care Team (Latest Contact Info) Description 12/19/2015 Orders Only [facility] Provider, MD Alexandru [address] [place] [address] Social History Tobacco Use Types Packs/Day Years Used Date Smoking Tobacco: Every Day Comments:Smoking History Pac ks/day: 0.5 Packs Alcohol Use Standard Drinks/Week Comments Yes 0 (1 standard drink = 0.6 oz pur e alcohol) Comments Unknown Sex and Gender Information Value Date Recorded Sex Assigned at Not on file Legal Sex Female 2:06 AM TELEVISION ANTENNA INSTALLER Gender Identity Not on file Sexual Orientation Not on file documented as of this encounter Plan of Treatment Not on file documented as of this encounter Procedures Procedure Name Priority Date/Time Associated Diagnosis Comments CARDIOLOGY REPORT 08/05/2016 12: 00 AM TELEVISION ANTENNA INSTALLER documented in this encounter Results * CARDIOLOGY REPORT (08/05/2016 12:00 AM TELEVISION ANTENNA INSTALLER) Anatomical Region Laterality Modality Other Narrative 08/05/2016 12:00 AM TELEVISION ANTENNA INSTALLER Ordered by an unspecified provider. Historical Provider [facility] Final Result documented in this encounter Visit Diagnoses Not on filedocumented in this encounter Care Teams Flight Communications Operator Relationship Specialty Start Date End Date Bert Glez MD PCP - General 04/09/13 Reji Godinez MD [address] [address] [place] [address] [address] Senior Project Architect Cardiology 04/26/19 Farooq Hitchcock MD [address] [address] Consulting Physician Clinical Cardiac Electrophysiology 11/15/24 documented as of this encounter
--- OUTSIDE RECORDS SUMMARY | 2025-09-02 02:07 | XMS_ITS | Encounter Summary ---
Author Organization [facility] Facility Care Team Providers Care Studio Couch Frame Builder Name Role Phone Bert Glez MD Primary Care Prov ider Reji Godinez MD Unavailable [phone] Farooq Hitchcock MD Unavailable [phone] Encounter Details Date Type Department Care Team (Latest Contact Info) Description 12/09/2015 Orders Only [facility] Provider, MD Alexandru [address] [place] [address] Social History Tobacco Use Types Packs/Day Years Used Date Smoking Tobacco: Every Day Comments:Smoking History Pac ks/day: 0.5 Packs Alcohol Use Standard Drinks/Week Comments Yes 0 (1 standard drink = 0.6 oz pur e alcohol) Comments Unknown Sex and Gender Information Value Date Recorded Sex Assigned at Not on file Legal Sex Female 2:06 AM LEAD PRODUCER Gender Identity Not on file Sexual Orientation Not on file documented as of this encounter Plan of Treatment Not on file documented as of this encounter Procedures Procedure Name Priority Date/Time Associated Diagnosis Comments CARDIOLOGY REPORT 08/05/2016 12: 00 AM LEAD PRODUCER documented in this encounter Results * CARDIOLOGY REPORT (08/05/2016 12:00 AM LEAD PRODUCER) Anatomical Region Laterality Modality Other Narrative 08/05/2016 12:00 AM LEAD PRODUCER Ordered by an unspecified provider. Historical Provider [facility] Final Result documented in this encounter Visit Diagnoses Not on filedocumented in this encounter Care Teams Studio Couch Frame Builder Relationship Specialty Start Date End Date Bert Glez MD PCP - General 04/09/13 Reji Godinez MD [address] [facility] [address] [address] [address] Marketing Editor Cardiology 04/26/19 Farooq Hitchcock MD [address] [address] Consulting Physician Clinical Cardiac Electrophysiology 11/15/24 documented as of this encounter
--- OUTSIDE RECORDS SUMMARY | 2025-09-02 02:07 | XMS_ITS | Encounter Summary ---
Author Organization [facility] Facility Care Team Providers Care Pricing Coordinator Name Role Phone Bert Glez MD Primary Care Prov ider Reji Godinez MD Unavailable [phone] Farooq Hitchcock MD Unavailable [phone] Encounter Details Date Type Department Care Team (Latest Contact Info) Description 09/16/2017 Orders Only [facility] ProviderAlexandru MD [address] [place] [address] Social History Tobacco Use Types Packs/Day Years Used Date Smoking Tobacco: Every Day Comments:Smoking History Pac ks/day: 0.5 Packs Alcohol Use Standard Drinks/Week Comments Yes 0 (1 standard drink = 0.6 oz pur e alcohol) Comments Unknown Sex and Gender Information Value Date Recorded Sex Assigned at Not on file Legal Sex Female 2:06 AM LITIGATION CLAIM REPRESENTATIVE Gender Identity Not on file Sexual Orientation Not on file documented as of this encounter Plan of Treatment Not on file documented as of this encounter Procedures Procedure Name Priority Date/Time Associated Diagnosis Comments PROCEDURE - RESULT 09/16/2017 12 :00 AM LITIGATION CLAIM REPRESENTATIVE documented in this encounter Results * PROCEDURE - RESULT (09/16/2017 12:00 AM LITIGATION CLAIM REPRESENTATIVE) Narrative 09/16/2017 12:00 AM LITIGATION CLAIM REPRESENTATIVE Ordered by an unspecified provider. Historical Provider Final Res ult documented in this encounter Visit Diagnoses Not on filedocumented in this encounter Care Teams Pricing Coordinator Relationship Specialty Start Date End Date Bert Glez MD PCP - General 04/09/13 Reji Godinez MD [address] [facility] [address] [place] [address] [address] Admitting Representative Cardiology 04/26/19 Farooq Hitchcock MD [address] [address] Consulting Physician Clinical Cardiac Electrophysiology 11/15/24 documented as of this encounter
[2025-09-02 07:40] VITALS: BP 138/68; PULSE 58; RESP 14; TEMP 36.1; O2SAT 100; BMI 32.1
--- NOTE | 2025-09-02 07:56 | WPDANESEPPF ---
Anes - Initial Pre Proc Eval Procedure: Operation Date: 09/02/25 09:00 Proposed Procedures p Diagnostic Colonoscopy - Ernst Ruth MD Date/Time: 09/02/25 07:56 Surgeon: Ernst Ruth MD Pre Op Diagnosis: Diverticulitis of intestine, part unspecified, wit Patient Data Age: 70 Gender: F Height: 1.55 m Weight: 77.2 kg Last Vital Signs Temp 36.1 C L 09/02/25 07:40 Pulse 58 L 09/02/25 07:40 Resp 14 09/02/25 07:40 BP 138/68 09/02/25 07:40 Pulse Ox 100 09/02/25 07:40 O2 Del Method Room Air 09/02/25 07:40 Allergies Allergy/AdvReac Type Severity Reaction Status Date / Time acetylcysteine Allergy Severe Other Verified 09/02/25 07:47 ciprofloxacin Allergy Severe Rash Verified 09/02/25 07:47 celecoxib Allergy Intermediate rash Verified 09/02/25 07:47 lisinopril Allergy Intermediate cough Verified 09/02/25 07:47 adhesive tape Allergy Intermediate Blister Uncoded 08/13/25 13:50 Home Medications ?Medication ?Instructions ?Recorded ?Confirmed ?Type irbesartan 75 mg tablet 75 mg PO HS 05/05/21 09/02/25 History atorvastatin 20 mg tablet 20 mg PO HS 03/17/22 09/02/25 History ezetimibe 10 mg tablet 10 mg PO HS 03/17/22 09/02/25 History Fish Oil 1 cap PO QAM 07/08/22 09/02/25 History potassium chloride 20 mEq 20 meq PO DAILY #300 tabs 05/09/24 09/02/25 Rx tablet,extended release ipratropium bromide 42 mcg (0.06 2 spray intranasal DAILY 06/19/24 09/02/25 History %) nasal spray furosemide 80 mg tablet 20 mg (1/4 x 80 mg) PO DAILY #30 06/19/25 09/02/25 Rx tabs topiramate 50 mg tablet 50 mg PO BID 06/19/25 09/02/25 History metoprolol succinate 25 mg 50 mg PO BID 06/28/25 09/02/25 History tablet,extended release 24 hr (Toprol XL) rivaroxaban 20 mg tablet (Xarelto) 20 mg PO HS #30 tabs 07/02/25 09/02/25 Rx gabapentin 300 mg capsule 600 mg (2 x 300 mg) PO HS #180 caps 07/29/25 09/02/25 Rx biotin 10,000 mcg capsule 10,000 mcg PO DAILY 08/13/25 09/02/25 History Patient hx anesthesia problems: none Family hx anesthesia problems: none Results Review: All pre-operative results and documents have been reviewed as part of the pre-operative evaluation. [facility] Past Medical History Medical History Myocardial infarction CAD (coronary artery disease) Vasomotor rhinitis Chronic anticoagulation On Xarelto and 81 mg aspirin Lumbosacral radiculopathy at S1 Hyperglycemia VALENTIN positive Peripheral neuropathy Seborrheic keratosis Paroxysmal atrial fibrillation New onset December 2023 Hypokalemia History of kidney stones GERD (gastroesophageal reflux disease) Mixed hyperlipidemia Essential (primary) hypertension Encounter for screening colonoscopy 05/26 Repeat 05/31 Gout Surgical History Surgical History History of medial meniscus repair of left knee (~07/16/22) History of colonoscopy History of endoscopy Hx of plastic surgery facial reconstruction Hx of carpal tunnel repair Rt trigger finger (thumb) History of tubal ligation History of coronary artery stent placement x3 (2006, 2011, 2014) Hx of CABG Two vessel CABG 2005 Family History Family History Father Diabetes mellitus Hypertension Mother Hypertension Spinal stenosis Sibling No problems noted. Social History Social History Social History: Code status: Full code Healthcare power of associate attorney: Joey Mirza () Smoking packs per day: 2 Smoking cigarettes per day: 40.0 Years smoked: 38 Smoking pack-years: 76.00 Smoking status: Former smoker Tobacco type: cigarettes Second hand tobacco smoke exposure: No Alcohol intake: never Substance use: never Substance use type: does not use Lack of Transportation: No Lack of Food: Never True Current Housing: I Have Housing Concerned About Future Housing: No Difficulty Paying Gas/Electric Bills: No Difficulty Paying for Meds: No Currently Unemployed: No Education: Associate Degree Difficulty w/ Childcare or Family Care: No Living arrangements: with family Occupation/Education: retired 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 Gender identity (if verbalized by the patient): Female Sexual Orientation (if Verbalized by the Patient): Straight or Heterosexual Spiritual care concerns: No Agree to blood products: Yes Anes - Eval Final PreProcedure Day of Procedure 09/02/25 07:56 Patient weight: overweight Heart: regular rate and rhythm Lungs: decreased breath sounds Airway: Mallampati scale class III Neurological: alert and oriented Last oral intake: >/= 8 hours ASA classification: III Emergent: no Anesthetic plan: proceed Anesthesia type and monitoring: general GIVS and standard monitoring Results Review: All pre-operative results and documents have been reviewed as part of the pre-operative evaluation. Informed Consent: The patient's anesthetic plan and its attendant risks and benefits were discussed with the patient/family/POA. Questions were solicited and answers provided to the satisfaction of the patient/family/POA.
[2025-09-02] MEDS: LACTATED RINGERS 1,000 ML 150 ML IV CONT (08:10)
--- NOTE | 2025-09-02 08:48 | PM.HPGS ---
History of Present Illness History of Present Illness Consent: Risks, benefits, and alternatives have been discussed and questions answered. Patient agrees to proceed with procedure. Chief complaint: Diverticulitis of intestine, part unspecified, wit Narrative: Mercy Mirza is a 70 year old female Review of Systems Review of Systems: All systems reviewed & are unremarkable except as noted in HPI and below PMFSH Past Medical History Medical History Myocardial infarction CAD (coronary artery disease) Vasomotor rhinitis Chronic anticoagulation On Xarelto and 81 mg aspirin Lumbosacral radiculopathy at S1 Hyperglycemia VALENTIN positive Peripheral neuropathy Seborrheic keratosis Paroxysmal atrial fibrillation New onset December 2023 Hypokalemia History of kidney stones GERD (gastroesophageal reflux disease) Mixed hyperlipidemia Essential (primary) hypertension Encounter for screening colonoscopy 05/26 Repeat 05/31 Gout Surgical History Surgical History History of medial meniscus repair of left knee (~07/16/22) History of colonoscopy History of endoscopy Hx of plastic surgery facial reconstruction Hx of carpal tunnel repair Rt trigger finger (thumb) History of tubal ligation History of coronary artery stent placement x3 (2006, 2011, 2014) Hx of CABG Two vessel CABG 2006 Family History Family History Father Diabetes mellitus Hypertension Mother Hypertension Spinal stenosis Sibling No problems noted. Social History Social History Social History: Code status: Full code Healthcare power of ip attorney: Joey Mirza () Smoking packs per day: 2 Smoking cigarettes per day: 40.0 Years smoked: 38 Smoking pack-years: 76.00 Smoking status: Former smoker Tobacco type: cigarettes Second hand tobacco smoke exposure: No Alcohol intake: never Substance use: never Substance use type: does not use Lack of Transportation: No Lack of Food: Never True Current Housing: I Have Housing Concerned About Future Housing: No Difficulty Paying Gas/Electric Bills: No Difficulty Paying for Meds: No Currently Unemployed: No Education: Associate Degree Difficulty w/ Childcare or Family Care: No Living arrangements: with family Occupation/Education: retired 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 Gender identity (if verbalized by the patient): Female Sexual Orientation (if Verbalized by the Patient): Straight or Heterosexual Spiritual care concerns: No Agree to blood products: Yes Meds Home Medications and Allergies Home Medications ?Medication ?Instructions ?Recorded ?Confirmed ?Type irbesartan 75 mg tablet 75 mg PO HS 05/05/21 09/02/25 History atorvastatin 20 mg tablet 20 mg PO HS 03/17/22 09/02/25 History ezetimibe 10 mg tablet 10 mg PO HS 03/17/22 09/02/25 History Fish Oil 1 cap PO QAM 07/08/22 09/02/25 History potassium chloride 20 mEq 20 meq PO DAILY #300 tabs 05/09/24 09/02/25 Rx tablet,extended release ipratropium bromide 42 mcg (0.06 2 spray intranasal DAILY 06/19/24 09/02/25 History %) nasal spray furosemide 80 mg tablet 20 mg (1/4 x 80 mg) PO DAILY #30 06/19/25 09/02/25 Rx tabs topiramate 50 mg tablet 50 mg PO BID 06/19/25 09/02/25 History metoprolol succinate 25 mg 50 mg PO BID 06/28/25 09/02/25 History tablet,extended release 24 hr (Toprol XL) rivaroxaban 20 mg tablet (Xarelto) 20 mg PO HS #30 tabs 07/02/25 09/02/25 Rx gabapentin 300 mg capsule 600 mg (2 x 300 mg) PO HS #180 caps 07/29/25 09/02/25 Rx biotin 10,000 mcg capsule 10,000 mcg PO DAILY 08/13/25 09/02/25 History Allergies Allergy/AdvReac Type Severity Reaction Status Date / Time acetylcysteine Allergy Severe Other Verified 09/02/25 07:47 ciprofloxacin Allergy Severe Rash Verified 09/02/25 07:47 celecoxib Allergy Intermediate rash Verified 09/02/25 07:47 lisinopril Allergy Intermediate cough Verified 09/02/25 07:47 adhesive tape Allergy Intermediate Blister Uncoded 08/13/25 13:50 Vital Signs Vital Signs - 24 hr 09/02/25 07:40 Temperature 97.0 F L Pulse Rate 58 L Respiratory Rate 14 Blood Pressure 138/68 Pulse Oximetry 100 Oxygen Delivery Room Air Exam Narrative: Morbidly obese Patient is comfortable, NAD HEENT: eyes are clear and none icteric LUNGS:CTA HEART: RR S1S2 ABD: BS+, Soft and nontender Lower extremities: no edema SKIN: nonjaundiced Neuro: grossly intact. Assessment and Plan Assessment and plan (1) Diverticulitis: Code(s): K57.92 - Diverticulitis of intestine, part unspecified, without perforation or abscess without bleeding Status: Acute Plan 70-YEAR-OLD FEMALE WITH HISTORY OF ACUTE DIVERTICULITIS. THE PATIENT IS HERE FOR COLONOSCOPY.
--- NOTE | 2025-09-02 09:02 | S_PTH ---
PATIENT: Mercy Mirza LOC: [facility]#:[id number] AGE/SX: 70/F ROOM: RE09/02/[address]: Ernst Ruth MD : 1955 BED: DIS: 09/02/2025 SPEC #: [id number] RECD: 09/02/25 10:19 STATUS: TANYA CAMEJO #: [id number] SAI: 09/02/25 09:[address]: Bryan Soto DEPT: [facility] Surgical RECD BY: Tamika Contreras ENTERED: 09/02/25 10:19 SP TYPE: Surgical OTHR DR: GERALDINE Arnett MD Tissues: A - Colon Polypectomy B - Rectal Polyp Procedures: Hematoxylin and Eosin Stain Gross and Microscopic Level 4
[2025-09-02 09:05] VITALS: BP 106/58; PULSE 58; RESP 15; O2SAT 94
[2025-09-02 09:15] VITALS: BP 113/62; PULSE 56; RESP 14; O2SAT 96
[2025-09-02 09:25] VITALS: BP 124/70; PULSE 52; RESP 17; O2SAT 96
== END 2025-09-02 09:35 | disposition home or self-care (01) ==
PROVIDERS: Internal Medicine Gastroenterology; PCP Nurse Practitioner; Referring Provider Nurse Practitioner Family; Visit Provider Internal Medicine Gastroenterology
PROC: 0DJD8ZZ Inspection of Lower Intestinal Tract, Via Natural or Artificial Opening Endoscopic (ICD-10-PCS; CPT 45378; principal; 2025-09-02 09:00)
DX: K57.30 Diverticulosis of large intestine without perforation or abscess without bleeding (principal); K63.5 Polyp of colon; K62.1 Rectal polyp; Z87.891 Personal history of nicotine dependence
CPT/HCPCS: 45380; 88305; J2003; J2704; J7120